=== PATIENT | male | born 1935 | race Caucasian/White ===

== ENCOUNTER → 2016-08-03 | Outpatient (REF) | payer MEDICARE ==
[~2016-08-03] MED LIST: /TIOT18INH; AMBI10TA PO; BABY81CH; CO ENZYME; CO Q200C PO; ECOT325T3 PO; FLOM5CAP PO; FOLI1TAB; FOLI800T PO; GLUCOSAMINE; INFL10VL IV; KLOR10TA; LIPI10TA PO; LIPITOR; LISI5TAB; LOPR50TA; LOSA25TA8 PO; MAGN64TASA PO; METH2.5T; METH2.5TA PO; NITR4TASL SL; NITROSTAT; PLAV75TA2; PREV15CA11 PO; PREVACID; SPIR1CAP IN
== END ==
LOC: M LAB REF 12:54
PROVIDERS: ATTEND Internal Medicine Rheumatology
DX: M05.679 Rheumatoid arthritis of unspecified ankle and foot with involvement of other organs and systems (principal); Z79.899 Other long term (current) drug therapy

== ENCOUNTER 2016-11-25 18:41 | Inpatient (IN) | payer MEDICARE ==
[~2016-11-25] VITALS: Ht 170.2 cm; Wt 96.7 kg
[~2016-11-25 18:41] MED LIST changes: -CO Q200C PO; +CO Q200C10 PO; -ECOT325T3 PO; +ECOT325T5 PO; -PREV15CA11 PO; +PREV15CA18 PO
[2016-11-25] MEDS ORDERED: [UNRECOGNIZED DRUG - OTHER] (19:04)
[2016-11-25] MEDS ORDERED: TIOT18INH INH (19:04)
[2016-11-25] MEDS ORDERED: LIPI10TA PO (19:04)
[2016-11-25] MEDS ORDERED: NS 500 ML IV ONE (20:00)
[2016-11-25] MEDS ORDERED: ACETAMINOPHEN 325 MG TAB PO ONE (20:00)
[2016-11-25 21:02] LABS: VENOUS BASE EXCESS -1.5 (-2.0-2.0); VENOUS O2 SATURATION 75.7 % (60.0-80.0); VENOUS PARTIAL PRESSURE CO2 38.1 mmHg (38.0-50.0); VENOUS PARTIAL PRESSURE O2 38.4 mmHg (30.0-50.0); VENOUS STANDARD HCO3 22.7 MEQ/L; VENOUS TOTAL CO2 24.1 MEQ/L (24.0-28.0)
[2016-11-25 21:04] LABS: ADD MANUAL DIFFER YES; MEAN CORPUSCULAR HEMOGLOBIN 31.5 pg (27.0-33.0); MEAN CORPUSCULAR HGB CONC 33.6 g/dl (32.0-36.5); MEAN CORPUSCULAR VOLUME 93.8 fl (80.0-96.0); PLATELET COUNT, AUTOMATED 134 k/mm3 (150-450); RED CELL DISTRIBUTION WIDTH 15.1 % (11.5-14.5); WHITE BLOOD COUNT 18.3 K/mm3 (4.0-10.0)
[2016-11-25 21:28] LABS: ALBUMIN 3.8 GM/DL (3.2-5.2); ALBUMIN/GLOBULIN RATIO 1.15 (1.00-1.93); BILIRUBIN,DIRECT 0.2 MG/DL (0.0-0.2); CREATININE FOR GFR 1.69 MG/DL (0.70-1.30); GLOMERULAR FILTRATION RATE 41.8 (>35); POTASSIUM SERUM 4.8 MEQ/L (3.5-5.1); TOTAL PROTEIN 7.1 GM/DL (6.4-8.2)
[2016-11-25 21:29] LABS: ANISOCYTOSIS 1+
[2016-11-25] MEDS ORDERED: AZITHROMYCIN INJ 500 MG, VIAL MATE ADAPTER 1 EACH in D5W 250 ML IV ONE (21:30)
[2016-11-25] MEDS ORDERED: CEFUROXIME SODIUM 1.5 GM in D5W MINI-BAG PLUS 50 ML IV ONE (21:30)
[2016-11-25] MEDS ORDERED: ERYT5OPO OS (22:07)
[2016-11-25] MEDS ORDERED: VITMTA PO (22:07)
[2016-11-25] MEDS ORDERED: FLUT1SPR2 (22:07)
[2016-11-25] MEDS ORDERED: ASPI325T24 PO (22:07)
[2016-11-25] MEDS ORDERED: NS 1,000 ML IV SCH (22:38)
[2016-11-25] MEDS ORDERED: FLUTICASONE PROP 0.05% NASAL SPRAY 16 GM (FLONASE) PRN (22:45)
[2016-11-25] MEDS ORDERED: zolPIDEM TARTRATE 10MG TAB PO PRN (22:45)
[2016-11-25] MEDS ORDERED: ACETAMINOPHEN TAB 650MG DOSE (2X325MG) PO PRN (22:45)
[2016-11-25] MEDS ORDERED: zolPIDEM TARTRATE 5 MG TAB PO PRN (22:55)
--- NOTE | 2016-11-25 23:10 | REPUSA ---
CT of the chest without contrast Clinical statement: fever. Technique: Multiple axial CT images were obtained with 5 mm cuts through the chest without administra tion of contrast. Comparison: 12/09/2014. Findings: There is no thoracic lymphadenopathy. The visualized portions of the thyroid gland is unrem arkable. There are no pericardial or pleural effusions. There is focal consolidation in the left lowe r lobe. Limited imaging of the upper abdomen does not demonstrate any acute abnormalities. There are no suspicious osseous lesions. Impression: Left lower lobe pneumonia.
[2016-11-26 00:45] VITALS: BP 141/67
--- NOTE | 2016-11-26 01:56 | HPE ---
DATE OF ADMISSION: 11/25/2016 PRIMARY CARE PROVIDER: Marcus Alberto MD. ATTENDING PHYSICIAN: Anali Boyd MD. CHIEF COMPLAINT: Fever and coughing. HISTORY OF PRESENT ILLNESS: The patient is an 81-year-old white male with several chronic medical conditions listed below came to the hospital for evaluation of fever and coughing and confusion. The history is provided by himself, as well as his , who is with him in the emergency room (ER) today. Per the patient, he has very severe osteoarthritis and planned for left knee replacement next month. For that he underwent cardiac stress test yesterday with Dr. Joseph, which was normal. Since today, he has fever at home, temperature up to 100.4 and also he is more confused with some coughing and the family decided to bring him to the ER for further evaluation. In the ER, his initial workup indicated leukocytosis, white blood cells (WBCs) up to 18.3. He underwent chest x-ray, as well as a CT of chest, which demonstrates possible left lower pneumonia. Medicine service called for admission. REVIEW OF SYSTEMS: Positive fever, but no chills. No headache. No blurry vision. No shortness of breath. Positive coughing with whitish phlegm, but no chest pain. No abdominal pain. No diarrhea. No tingling, numbness, weakness in arms and lower extremities. All other systems reviewed were negative. PAST MEDICAL HISTORY: 1. Coronary artery disease status post coronary artery bypass graft (CABG). 2. Hypertension. 3. Stage III chronic kidney disease (CKD). 4. Rheumatoid arthritis. 5. Urine incontinence. PAST SURGICAL HISTORY: 1. Appendectomy. 2. Cholecystectomy. 3. Cardiac bypass surgery. 4. Left inguinal hernia repair. 5. Knee surgery. ALLERGIES: No known drug allergies. SOCIAL HISTORY: Remote tobacco use, quit many years. No alcohol abuse. No illicit drug abuse. He is FULL CODE. FAMILY HISTORY: Reviewed and no family history of coronary artery disease or chronic obstructive pulmonary disease (COPD). MEDICATIONS: Reviewed. PHYSICAL EXAMINATION: VITAL SIGNS: Temperature 98.9, heart rate 100, respirations 16, blood pressure 130/72, and oxygen saturation 92% on room air. GENERAL: He is awake, alert, oriented times three. He is a little bit confused. HEENT: Atraumatic. Pupils are equal, round and reactive to light. No jaundice. Ears, nose, and throat are normal. Oral mucosa dry. LUNGS: Decreased breath sounds, no wheezing, no crackles. HEART: S1, S2 regular. No murmur. ABDOMEN: Soft. Bowel sounds positive. Nontender. LOWER EXTREMITIES: No edema in bilateral extremities. NEUROLOGICAL: Nonfocal. SKIN: No rash. PSYCHOLOGICAL: No acute psychosis. DIAGNOSTIC LABORATORY STUDIES: Including the following: CBC and differential: WBC 18.3, hemoglobin and hematocrit 15/45, platelets 134. Sodium 132, potassium 4.8, BUN 22, creatinine 1.69. Chest x-ray, as well as chest CT reviewed which demonstrate left lower lobe infiltrate. IMPRESSION: 1. Community-acquired left lower lobe pneumonia. 2. Hypertension. 3. Rheumatoid arthritis. 4. Coronary artery disease. 5. Chronic kidney disease (CKD) stage III. PLAN: Patient will be admitted to medical/surgical floor. He is inpatient. I will treat him with intravenous (IV) ceftriaxone and azithromycin to cover community-acquired pneumonia. Will gently hydrate him. Will resume all his home medications. Will follow closely. Dr. Boyd will followup tomorrow. LINDA
[2016-11-26 05:59] LABS: BASO % 0.1 % (0.0-1.0); EOS % 0.4 % (0.0-3.0); LARGE UNSTAINED CELL # 0.2 K/mm3 (0.0-0.4); LARGE UNSTAINED CELL % 1.3 % (0.0-4.0); LYMPH # 1.2 K/mm3 (1.5-4.5); LYMPH % 7.1 % (24.0-44.0); MEAN CORPUSCULAR HEMOGLOBIN 32.6 pg (27.0-33.0); MEAN CORPUSCULAR HGB CONC 34.8 g/dl (32.0-36.5); MEAN CORPUSCULAR VOLUME 93.6 fl (80.0-96.0); MONO # 0.7 K/mm3 (0.0-0.8); MONO % 4.7 % (0.0-5.0); NEUTROPHILS # 12.4 K/mm3 (1.8-7.7); NEUTROPHILS % 86.5 % (36.0-66.0); PLATELET COUNT, AUTOMATED 112 k/mm3 (150-450); WHITE BLOOD COUNT 14.3 K/mm3 (4.0-10.0)
[2016-11-26 06:00] VITALS: BP 122/65
[2016-11-26 06:15] LABS: CALCIUM LEVEL 8.7 MG/DL (8.8-10.2); CREATININE FOR GFR 1.76 MG/DL (0.70-1.30); GLOMERULAR FILTRATION RATE 39.9 (>35); POTASSIUM SERUM 4.4 MEQ/L (3.5-5.1)
[2016-11-26] MEDS: HEPARIN SOD (PORCINE) 5000 UNITS/ML VIAL SC SCH ×3 (06:24→21:59)
[2016-11-26] MEDS: TIOTROPIUM INHALER/CAPSULE (SPIRIVA) INH SCH (07:51)
--- NOTE | 2016-11-26 07:54 | REP ---
A PA and lateral chest: Comparisons 06/24/2014. There is an incomplete inspiratory effort with bibasilar atelectasis. The lung helms otherwise clear and unchanged. There are sternotomy wires. Cardiac size is enlarged. The beltran, mediastinum, and bony thorax are unremarkable. Impression: Incomplete inspiration, bibasilar atelectasis. Cardiomegaly. Signed by Evgeny Saxena MD 11/26/2016 07:45 A
[2016-11-26] MEDS: LOSARTAN 25 MG TAB PO SCH ×2 (09:32→21:59)
[2016-11-26] MEDS: AZITHROMYCIN 250 MG TAB PO SCH (09:32)
[2016-11-26] MEDS: SENOKOT S TAB PO SCH ×2 (09:32→21:58)
[2016-11-26] MEDS: cefTRIAXone SOD 1 GM in D5W MINI-BAG PLUS 50 ML IV SCH (09:32)
[2016-11-26] MEDS ORDERED: TAMSULOSIN 0.4 MG CAP PO SCH (12:00)
--- NOTE | 2016-11-26 12:06 | IPN ---
DATE: 11/26/2016 SUBJECTIVE: The patient tells me that he is feeling better. He is coughing less. He is not feeling short of breath. He denies chest pain, fevers, chills, lightheadedness, dizziness, nausea, or vomiting. OBJECTIVE: VITAL SIGNS: Temperature 98.7, maximum temperature (t-max) 99.6, pulse 74, respiratory rate 16, blood pressure 122/65, oxygen saturation 93% on room air. GENERAL: He is a morbidly obese, elderly, man lying in bed comfortably at a 20 degree angle. He does not appear to be in any acute distress. He does cough with a wet sounding cough throughout the examination. HEENT: Cranial nerves II through XII are grossly intact. Moist mucous membranes. No elevation in central venous pressure. Does have an enlarged neck. CARDIOVASCULAR EXAM: S1, S2 regular. RESPIRATORY EXAM: Quite clear with diminished breath sounds at the left base. ABDOMINAL EXAM: Grossly obese. Bowel sounds present. The abdomen is soft. EXTREMITIES: No clubbing, cyanosis, or edema. LABORATORY STUDIES: WBC 14.3, down from 18.3, hemoglobin 13.9, platelet count 112, down from 134. Chemistry panel: Sodium 141, up from 132, potassium 4.4, chloride 110, bicarbonate 25, BUN 21, creatinine 1.7, lactic acid 1.2. VBG is fairly unremarkable. UA is also fairly unremarkable. Blood cultures were drawn and pending. IMAGING: The patient did have a CT scan of the chest, which revealed left lower lobe pneumonia. ASSESSMENT AND PLAN: This is an 81-year-old man presenting with cough, confusion, low grade temperature with radiographic findings concerning for community acquired pneumonia. 1. Community acquired pneumonia. The patient is on azithromycin and ceftriaxone. He does appear to be improving. At the present time, he is awake, alert, and oriented times three, and to situation. Does not appear to be confused at all. He tells me that his cough is reducing. He is comfortable on room air. We will continue with the current therapy and follow cultures. His leukocytosis is trending down. I suspect that he may be able to be discharged within the next 24 to 48 hours, depending on his progress. 2. Osteoarthritis. The patient is scheduled for a knee replacement next month. 3. Coronary artery disease, status post coronary artery bypass graft (CABG). The patient is on aspirin and statin. He is not on a beta brook. We will defer to his outpatient provider. 4. Benign prostatic hypertrophy (BPH). He is on Flomax. 5. Hypertension. He is controlled with losartan. 6. Insomnia. The patient is on Ambien. 7. Allergic rhinitis. The patient is on Flonase. 8. Deep vein thrombosis (DVT) prophylaxis. The patient is on heparin. DISPOSITION: I suspect that the patient may be able to be discharged within the next 24 to 48 hours. We will continue to follow his progress closely. Physical therapy (PT) evaluation has been placed.
[2016-11-26 14:00] VITALS: BP 131/71
[2016-11-26] MEDS ORDERED: MAGNESIUM CHLORIDE 64 MG TABCR (SLO MAG) PO SCH (21:00)
[2016-11-26] MEDS ORDERED: ASPIRIN ENTERIC 325 MG TAB PO SCH (21:00)
[2016-11-26] MEDS ORDERED: MULTIVITAMINS/MINERALS THERAP 1 TAB PO SCH (21:00)
[2016-11-26] MEDS ORDERED: ATORVASTATIN 5MG PER 1/2 TABLET PO SCH (21:00)
[2016-11-26 21:59] VITALS: BP 110/68
[2016-11-26 22:00] VITALS: BP 110/68
[2016-11-27] MEDS: HEPARIN SOD (PORCINE) 5000 UNITS/ML VIAL SC SCH (05:26)
[2016-11-27 06:00] VITALS: BP 134/81
[2016-11-27] MEDS: TIOTROPIUM INHALER/CAPSULE (SPIRIVA) INH SCH (07:30)
[2016-11-27 08:24] LABS: MEAN CORPUSCULAR HGB CONC 35.2 g/dl (32.0-36.5); MEAN CORPUSCULAR VOLUME 93.8 fl (80.0-96.0); RED CELL DISTRIBUTION WIDTH 14.9 % (11.5-14.5)
[2016-11-27 08:42] LABS: CALCIUM LEVEL 8.5 MG/DL (8.8-10.2); CREATININE FOR GFR 1.82 MG/DL (0.70-1.30); GLOMERULAR FILTRATION RATE 38.4 (>35); POTASSIUM SERUM 4.1 MEQ/L (3.5-5.1)
[2016-11-27] MEDS: AZITHROMYCIN 250 MG TAB PO SCH (08:44)
[2016-11-27] MEDS: SENOKOT S TAB PO SCH (08:44)
[2016-11-27] MEDS: cefTRIAXone SOD 1 GM in D5W MINI-BAG PLUS 50 ML IV SCH (08:44)
[2016-11-27] MEDS: LOSARTAN 25 MG TAB PO SCH (08:44)
[2016-11-27] MEDS ORDERED: LEVO500T3 PO (11:06)
--- NOTE | 2016-11-28 14:29 | DSES ---
DATE OF ADMISSION: 11/25/2016 DATE OF DISCHARGE: 11/27/2016 DISCHARGE DIAGNOSIS: Community-acquired pneumonia. SECONDARY DIAGNOSES: 1. Osteoarthritis. 2. Coronary artery disease. 3. Benign prostatic hypertrophy (BPH). 4. Hypertension. 5. Insomnia. 6. Allergic rhinitis. HOSPITAL COURSE: The patient is an 81-year-old man who presents with cough, low-grade temperatures and confusion. He was admitted to the medical/surgical floor with concern of community-acquired pneumonia. He did have a CT scan of his chest in the emergency room, which revealed left lower lobe pneumonia. The patient was started on ceftriaxone and azithromycin, and over the next 48 hours, he had great improvement in his symptoms. He is afebrile. His leukocytosis has resolved. He has normal lactic acid. His chronic kidney disease remained stable. The patient was seen by physical therapy today and has been cleared for discharge home. His confusion and metabolic encephalopathy has completely resolved. SUBJECTIVE: Today the patient tells me that he feels great. His cough is resolving. He has no complaints and would like to go home. OBJECTIVE: VITAL SIGNS: Temperature 98.4, pulse 79, respiratory rate 20, blood pressure 134/81, oxygen saturation 95% on room air. GENERAL: He is a very pleasant and obese man sitting up in bed, accompanied by his . The patient does not appear to be in any acute distress. HEENT: Cranial nerves II through XII are grossly intact. He has moist mucous membranes. No elevation of central venous pressure (CVP). CARDIOVASCULAR: S1, S2 regular. RESPIRATORY: Clear. Diminished breath sounds at the left base. ABDOMEN: Grossly obese. Bowel sounds present. The abdomen is soft. EXTREMITIES: No clubbing, cyanosis or edema. LABORATORY DATA: WBC 7.0 down from 18.3 at the time of admission, hemoglobin 14.1, platelet count 132. Chemistry panel: Sodium 139, potassium 4.1, chloride 107, bicarbonate 23, BUN 21, creatinine 1.8. MICROBIOLOGY: Blood cultures are negative. IMAGING: As outlined above. ASSESSMENT AND PLAN: This is an 81-year-old man with resolving community-acquired pneumonia. 1. Community-acquired pneumonia. The patient presented with metabolic encephalopathy secondary to community-acquired pneumonia. He was on azithromycin and ceftriaxone. At this time, he will be discharged on Levaquin 500 mg by mouth daily to complete a seven-day course. He is no longer confused. His leukocytosis resolved. He is afebrile. He is cleared by physical therapy (PT). He is medically stable for discharge home to the care of his . 2. Osteoarthritis. The patient has been scheduled for a knee replacement next month. This should not impede any planned operative procedure. 3. Coronary artery disease, status post coronary artery bypass graft (CABG). He is on an aspirin and statin. He is not on a beta brook. I will defer to his outpatient provider. 4. Benign prostatic hypertrophy (BPH). He is on Flomax. 5. Hypertension. He is on losartan. His blood pressure is well controlled. 6. Insomnia. He is on Ambien. 7. Allergic rhinitis. He is on Flonase. 8. Deep venous thrombosis (DVT) prophylaxis. The patient has been on heparin while in hospital. DISPOSITION: The patient is being discharged home to the care of his . He is to followup with his primary care provider (PCP) within seven days. His activity and diet are as prior to admission. He is to return to the ER if symptoms worsen. DISCHARGE MEDICATIONS: - levofloxacin 500 mg by mouth daily for five days - aspirin 325 mg at bedtime - Lipitor 5 mg at bedtime - coenzyme Q 200 mg daily - erythromycin ointment left eye daily at bedtime - fluticasone nasal spray two sprays for nasal congestion - folic acid 800 mcg daily - Remicade intravenously every eight weeks for rheumatoid arthritis - lansoprazole 50 mg daily - losartan 25 mg twice a day - magnesium chloride 64 mg - methotrexate 20 mg once a week on Wednesdays for rheumatoid arthritis - multivitamin one tablet at bedtime - Nitrostat 0.4 mg sublingually every five minutes times three doses as needed for chest pain - Flomax 0.4 mg daily - Spiriva inhaled once daily - Ambien 5 mg at bedtime as needed for sleep Greater than 30 minutes were spent organizing disposition. MTDD
== END 2016-11-27 11:56 | disposition home or self-care (01) | DRG 193 ==
LOC: M ED 18:41 → M ED INP 22:38 → M MSPAV 11-26 00:44
PROVIDERS: ADMIT Hospitalist; ATTEND Internal Medicine
DX: J18.9 Pneumonia, unspecified organism (principal); G93.41 Metabolic encephalopathy; I12.9 Hypertensive chronic kidney disease with stage 1 through stage 4 chronic kidney disease, or unspecified chronic kidney disease; M06.9 Rheumatoid arthritis, unspecified; N18.3 Chronic kidney disease, stage 3 (moderate); I25.10 Atherosclerotic heart disease of native coronary artery without angina pectoris; N40.0 Benign prostatic hyperplasia without lower urinary tract symptoms; G47.00 Insomnia, unspecified; M19.90 Unspecified osteoarthritis, unspecified site; Z79.82 Long term (current) use of aspirin; Z79.899 Other long term (current) drug therapy

== ENCOUNTER → 2016-12-25 | Outpatient (REF) | payer MEDICARE ==
[~2016-12-25] MED LIST changes: +ASPI325T24 PO; +ERYT5OPO OS; +FLUT1SPR2; +LEVO500T3 PO; +TIOT18INH INH; +VITMTA PO; +[UNRECOGNIZED DRUG - OTHER]
== END ==
LOC: M LAB 21:45
PROVIDERS: ATTEND Family Medicine
DX: M05.762 Rheumatoid arthritis with rheumatoid factor of left knee without organ or systems involvement (principal); M25.562 Pain in left knee; G89.29 Other chronic pain

== ENCOUNTER → 2016-12-26 | Outpatient (REF) | payer MEDICARE ==
[2016-12-26 12:21] LABS: BASO % 0.5 % (0.0-1.0); EOS # 0.4 K/mm3 (0.0-0.50); LARGE UNSTAINED CELL # 0.3 K/mm3 (0.0-0.4); LARGE UNSTAINED CELL % 3.2 % (0.0-4.0); LYMPH # 2.1 K/mm3 (1.5-4.5); LYMPH % 18.1 % (24.0-44.0); MEAN CORPUSCULAR HEMOGLOBIN 31.1 pg (27.0-33.0); MEAN CORPUSCULAR HGB CONC 33.1 g/dl (32.0-36.5); MEAN CORPUSCULAR VOLUME 93.8 fl (80.0-96.0); MONO # 0.9 K/mm3 (0.0-0.8); MONO % 8.8 % (0.0-5.0); NEUTROPHILS # 6.5 K/mm3 (1.8-7.7); NEUTROPHILS % 65.4 % (36.0-66.0); PLATELET COUNT, AUTOMATED 136 k/mm3 (150-450); RED CELL DISTRIBUTION WIDTH 13.9 % (11.5-14.5)
== END ==
PROVIDERS: ATTEND Family Medicine
DX: R53.83 Other fatigue (principal)

== ENCOUNTER → 2017-02-22 | Outpatient (REF) | payer MEDICARE ==
[2017-02-22 12:56] LABS: ALBUMIN 3.6 GM/DL (3.2-5.2); ALBUMIN/GLOBULIN RATIO 0.92 (1.00-1.93); BILIRUBIN,TOTAL 0.5 MG/DL (0.2-1.0); CALCIUM LEVEL 9.3 MG/DL (8.8-10.2); CREATININE FOR GFR 1.75 MG/DL (0.70-1.30); GLOMERULAR FILTRATION RATE 40.1 (>35); MAGNESIUM LEVEL 2.2 MG/DL (1.8-2.4); POTASSIUM SERUM 4.9 MEQ/L (3.5-5.1); TOTAL PROTEIN 7.5 GM/DL (6.4-8.2)
== END ==
LOC: M SFHCPLAZ 08:33
PROVIDERS: ATTEND Internal Medicine
DX: I10 Essential (primary) hypertension (principal); E78.00 Pure hypercholesterolemia, unspecified

== ENCOUNTER 2017-04-29 23:38 | Emergency (ER) | payer MEDICARE ==
[2017-04-30 00:45] LABS: BASO % 0.2 % (0.0-1.0); EOS # 0.2 10^3/uL (0.0-0.50); EOS % 2.3 % (0.0-3.0); IMMATURE GRANULOCYTE % 0.3 % (0-0); LYMPH % 10.4 % (24.0-44.0); MEAN CORPUSCULAR HEMOGLOBIN 30.6 pg (27.0-33.0); MEAN CORPUSCULAR HGB CONC 34.6 g/dl (32.0-36.5); MEAN CORPUSCULAR VOLUME 88.4 fl (80.0-96.0); MONO # 0.6 10^3/uL (0.0-0.8); NEUTROPHILS # 7.6 10^3/uL (1.8-7.7); NEUTROPHILS % 80.8 % (36.0-66.0); PLATELET COUNT, AUTOMATED 151 10^3/uL (150-450); RED CELL DISTRIBUTION WIDTH 18.7 % (11.5-14.5); WHITE BLOOD COUNT 9.4 10^3/uL (4.0-10.0)
[2017-04-30 01:05] LABS: ANION GAP 8 MEQ/L (8-16); BLOOD UREA NITROGEN 22 MG/DL (7-18); CALCIUM LEVEL 8.6 MG/DL (8.8-10.2); CARBON DIOXIDE LEVEL 23 MEQ/L (21-32); CHLORIDE LEVEL 109 MEQ/L (98-107); CREATININE FOR GFR 1.86 MG/DL (0.70-1.30); GLOMERULAR FILTRATION RATE 37.3 (>35); GLUCOSE, FASTING 131 MG/DL (83-110); POTASSIUM SERUM 4.2 MEQ/L (3.5-5.1); SODIUM LEVEL 140 MEQ/L (136-145)
[2017-04-30 01:08] LABS: ALBUMIN 3.6 GM/DL (3.2-5.2); ALBUMIN/GLOBULIN RATIO 1.03 (1.00-1.93); ALKALINE PHOSPHATASE 79 U/L (45-117); ALT/SGPT 40 U/L (12-78); AST/SGOT 30 U/L (7-37); BILIRUBIN,DIRECT 0.2 MG/DL (0.0-0.2); BILIRUBIN,TOTAL 0.6 MG/DL (0.2-1.0); TOTAL PROTEIN 7.1 GM/DL (6.4-8.2)
[2017-04-30] MEDS: PIPERACILLIN/TAZOBACTAM SOD 3.375 GM in APPROPRIATE DILUENT 1 EA IV (01:30)
== END 2017-04-30 03:25 | disposition home or self-care (01) ==
LOC: M ED 23:38
DX: L03.113 Cellulitis of right upper limb (principal); S61.451A Open bite of right hand, initial encounter; W55.01XA Bitten by cat, initial encounter; Y92.098 Other place in other non-institutional residence as the place of occurrence of the external cause; Y93.89 Activity, other specified; Y99.8 Other external cause status; I25.2 Old myocardial infarction; I12.9 Hypertensive chronic kidney disease with stage 1 through stage 4 chronic kidney disease, or unspecified chronic kidney disease; J44.9 Chronic obstructive pulmonary disease, unspecified; E78.5 Hyperlipidemia, unspecified; K21.9 Gastro-esophageal reflux disease without esophagitis; M54.9 Dorsalgia, unspecified; N40.0 Benign prostatic hyperplasia without lower urinary tract symptoms; N18.9 Chronic kidney disease, unspecified; Z87.891 Personal history of nicotine dependence; Z79.82 Long term (current) use of aspirin; Z79.899 Other long term (current) drug therapy
CPT/HCPCS: J2543

== ENCOUNTER 2017-05-01 22:45 | Emergency (ER) | payer MEDICARE ==
[2017-05-02 01:59] LABS: BASO % 0.2 % (0.0-1.0); EOS # 0.3 10^3/uL (0.0-0.50); EOS % 4.6 % (0.0-3.0); HEMATOCRIT 39.7 % (42.0-52.0); HEMOGLOBIN 13.3 g/dl (14.0-18.0); IMMATURE GRANULOCYTE % 0.6 % (0-0); LYMPH # 1.3 10^3/uL (1.5-4.5); LYMPH % 23.7 % (24.0-44.0); MEAN CORPUSCULAR HEMOGLOBIN 30.1 pg (27.0-33.0); MEAN CORPUSCULAR HGB CONC 33.5 g/dl (32.0-36.5); MEAN CORPUSCULAR VOLUME 89.8 fl (80.0-96.0); MONO # 0.5 10^3/uL (0.0-0.8); MONO % 8.9 % (0.0-5.0); NEUTROPHILS # 3.4 10^3/uL (1.8-7.7); PLATELET COUNT, AUTOMATED 172 10^3/uL (150-450); RED BLOOD COUNT 4.42 10^6/uL (4.30-6.10); RED CELL DISTRIBUTION WIDTH 18.1 % (11.5-14.5); WHITE BLOOD COUNT 5.4 10^3/uL (4.0-10.0)
[2017-05-02] MEDS: PIPERACILLIN/TAZOBACTAM SOD 2.25 GM in APPROPRIATE DILUENT 1 EA IV (02:10)
[2017-05-02 02:18] LABS: ANION GAP 6 MEQ/L (8-16); BLOOD UREA NITROGEN 30 MG/DL (7-18); CALCIUM LEVEL 8.8 MG/DL (8.8-10.2); CARBON DIOXIDE LEVEL 26 MEQ/L (21-32); CHLORIDE LEVEL 108 MEQ/L (98-107); CREATININE FOR GFR 1.84 MG/DL (0.70-1.30); GLOMERULAR FILTRATION RATE 37.8 (>35); GLUCOSE, FASTING 103 MG/DL (83-110); POTASSIUM SERUM 4.2 MEQ/L (3.5-5.1); SODIUM LEVEL 140 MEQ/L (136-145)
[2017-05-02 02:21] LABS: LACTIC ACID SEPSIS PROTOCOL 0.8 MMOL/L (0.4-2.0)
== END 2017-05-02 02:46 | disposition home or self-care (01) ==
LOC: M ED 22:45
DX: L03.113 Cellulitis of right upper limb (principal); S61.451A Open bite of right hand, initial encounter; W55.01XA Bitten by cat, initial encounter; Y92.098 Other place in other non-institutional residence as the place of occurrence of the external cause; Y93.89 Activity, other specified; Y99.8 Other external cause status; I25.2 Old myocardial infarction; J44.9 Chronic obstructive pulmonary disease, unspecified; E78.5 Hyperlipidemia, unspecified; M54.9 Dorsalgia, unspecified; K74.60 Unspecified cirrhosis of liver; N40.0 Benign prostatic hyperplasia without lower urinary tract symptoms; N18.9 Chronic kidney disease, unspecified; Z87.891 Personal history of nicotine dependence; Z79.82 Long term (current) use of aspirin; Z79.899 Other long term (current) drug therapy
CPT/HCPCS: J2543

== ENCOUNTER → 2017-08-15 | Outpatient (REF) | payer MEDICARE ==
[2017-08-15 12:03] LABS: ALBUMIN 3.7 GM/DL (3.2-5.2); ALBUMIN/GLOBULIN RATIO 1.12 (1.00-1.93); ALKALINE PHOSPHATASE 69 U/L (45-117); ALT/SGPT 41 U/L (12-78); ANION GAP 7 MEQ/L (8-16); AST/SGOT 17 U/L (7-37); BILIRUBIN,TOTAL 0.7 MG/DL (0.2-1.0); BLOOD UREA NITROGEN 31 MG/DL (7-18); CALCIUM LEVEL 8.6 MG/DL (8.8-10.2); CARBON DIOXIDE LEVEL 23 MEQ/L (21-32); CHLORIDE LEVEL 113 MEQ/L (98-107); CREATININE FOR GFR 1.81 MG/DL (0.70-1.30); GLOMERULAR FILTRATION RATE 38.5 (>35); GLUCOSE, FASTING 89 MG/DL (70-100); POTASSIUM SERUM 4.2 MEQ/L (3.5-5.1); SODIUM LEVEL 143 MEQ/L (136-145)
== END ==
LOC: M SFHCPLAZ 09:00
DX: I10 Essential (primary) hypertension (principal)
CPT/HCPCS: 83735

== ENCOUNTER 2017-10-24 06:59 | Day surgery (SDC) | payer MEDICARE ==
[2017-10-24] MEDS ORDERED: PROPOFOL 200 MG/20 ML VIAL As Ordered ×2 (07:18)
[2017-10-24] MEDS: NS 1,000 ML IV (07:30)
== END 2017-10-24 09:00 | disposition home or self-care (01) ==
LOC: M OPP 06:59
DX: Z12.11 Encounter for screening for malignant neoplasm of colon (principal); K64.0 First degree hemorrhoids; Z86.010 Personal history of colon polyps; J44.9 Chronic obstructive pulmonary disease, unspecified; K44.9 Diaphragmatic hernia without obstruction or gangrene; N40.0 Benign prostatic hyperplasia without lower urinary tract symptoms; I10 Essential (primary) hypertension; E78.00 Pure hypercholesterolemia, unspecified; R01.1 Cardiac murmur, unspecified; I25.2 Old myocardial infarction; M06.9 Rheumatoid arthritis, unspecified; Z79.899 Other long term (current) drug therapy; Z95.5 Presence of coronary angioplasty implant and graft
CPT/HCPCS: G0105

== ENCOUNTER → 2018-02-17 | Outpatient (REF) | payer MEDICARE ==
[2018-02-17 12:21] LABS: ALBUMIN 3.6 GM/DL (3.2-5.2); ALBUMIN/GLOBULIN RATIO 1.24 (1.00-1.93); ALKALINE PHOSPHATASE 71 U/L (45-117); ALT/SGPT 51 U/L (12-78); ANION GAP 11 MEQ/L (8-16); AST/SGOT 27 U/L (7-37); BILIRUBIN,TOTAL 0.5 MG/DL (0.2-1.0); BLOOD UREA NITROGEN 30 MG/DL (7-18); CALCIUM LEVEL 8.5 MG/DL (8.8-10.2); CARBON DIOXIDE LEVEL 24 MEQ/L (21-32); CHLORIDE LEVEL 108 MEQ/L (98-107); CHOLESTEROL LEVEL 92 MG/DL (<200); CHOLESTEROL RISK RATIO 2.787 (<5); CREATININE FOR GFR 1.73 MG/DL (0.70-1.30); GLOMERULAR FILTRATION RATE 40.6 (>35); GLUCOSE, FASTING 84 MG/DL (70-100); HDL CHOLESTEROL 33 MG/DL (>40); LDL CHOLESTEROL 42 MG/DL (<100); MAGNESIUM LEVEL 1.9 MG/DL (1.8-2.4); NON-HDL-C 59 MG/DL; POTASSIUM SERUM 4.4 MEQ/L (3.5-5.1); SODIUM LEVEL 143 MEQ/L (136-145); TOTAL PROTEIN 6.5 GM/DL (6.4-8.2); TRIGLYCERIDES LEVEL 86 MG/DL (<150)
== END ==
LOC: M SFHCPLAZ 08:12
DX: E78.00 Pure hypercholesterolemia, unspecified (principal)
CPT/HCPCS: 83735

== ENCOUNTER → 2018-04-19 | Outpatient (REF) | payer MEDICARE ==
[~2018-04-19] MED LIST changes: +ALFU10TA2; -ASPI325T24 PO; +ASPI325T25 PO; +AUGM875T28 PO; +DOXY100C37 PO; +FLOM0.4C39 PO; -FLOM5CAP PO; +FLUT1INH2 INH; +LOSA25TA33 PO; -LOSA25TA8 PO; +METH2.5T48 PO; -METH2.5TA PO
== END ==
LOC: M LAB REF 10:11
PROVIDERS: ATTEND Internal Medicine Rheumatology
DX: Z79.899 Other long term (current) drug therapy (principal); M05.79 Rheumatoid arthritis with rheumatoid factor of multiple sites without organ or systems involvement

== ENCOUNTER → 2018-08-29 | Outpatient (REF) | payer MEDICARE ==
[~2018-08-29] MED LIST changes: -/TIOT18INH; +ASPI-255 PO; -ASPI325T25 PO; +ERYT1OIN26 OS; -ERYT5OPO OS; +LOSA25TA14 PO; -LOSA25TA33 PO; +SPIR1CAP
[2018-08-29 11:43] LABS: ALBUMIN 3.6 GM/DL (3.2-5.2); BILIRUBIN,TOTAL 0.4 MG/DL (0.2-1.0); CALCIUM LEVEL 8.7 MG/DL (8.8-10.2); CREATININE FOR GFR 1.73 MG/DL (0.70-1.30); GLOMERULAR FILTRATION RATE 40.5 (>35); POTASSIUM SERUM 4.9 MEQ/L (3.5-5.1); TOTAL PROTEIN 6.9 GM/DL (6.4-8.2)
[2018-08-29 11:50] LABS: PTH INTACT 68.3 PG/ML (18.5-88.0)
== END ==
LOC: M SFHCPLAZ 07:50
PROVIDERS: ATTEND Internal Medicine
DX: I12.9 Hypertensive chronic kidney disease with stage 1 through stage 4 chronic kidney disease, or unspecified chronic kidney disease (principal); N18.3 Chronic kidney disease, stage 3 (moderate)

== ENCOUNTER → 2018-09-08 | Outpatient (CLI) | payer MEDICARE ==
--- NOTE | 2018-09-08 14:39 | REP ---
REASON: History of pneumonia. COMPARISON: Multiple, latest 03/01/2017. 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 Previous median sternotomy again noted. The heart is not enlarged. There are no new abnormal lung parenchymal opacities. There is no change in the osseous structures. IMPRESSION: No evidence of acute cardiopulmonary disease. Stable appearing chronic changes as described above. Electronically Signed by Carlos Brown DO 09/08/2018 02:43 P
== END ==
LOC: M RAD 11:26
PROVIDERS: ATTEND Internal Medicine
DX: Z87.01 Personal history of pneumonia (recurrent) (principal)

== ENCOUNTER → 2018-11-07 | Outpatient (REF) | payer MEDICARE | LOC: M LAB REF 10:47 | PROVIDERS: ATTEND Internal Medicine Rheumatology | DX: Z51.81 Encounter for therapeutic drug level monitoring (principal); Z79.899 Other long term (current) drug therapy; M05.79 Rheumatoid arthritis with rheumatoid factor of multiple sites without organ or systems involvement ==

== ENCOUNTER 2018-12-25 17:06 | Emergency (ER) | payer MEDICARE ==
[~2018-12-25] VITALS: Ht 170.2 cm; Wt 94.1 kg
[2018-12-25] MEDS ORDERED: OMEP20CA4 PO (17:30)
[2018-12-25] MEDS ORDERED: NS 1,000 ML IV ONE (18:00)
[2018-12-25] MEDS ORDERED: ACETAMINOPHEN TAB 650MG DOSE (2X325MG) PO ONE (18:00)
[2018-12-25 18:57] LABS: BASO % 0.3 % (0.0-1.0); EOS # 0.1 10^3/uL (0.0-0.50); EOS % 1.2 % (0.0-3.0); HEMATOCRIT 42.1 % (42.0-52.0); HEMOGLOBIN 14.2 g/dl (13.5-17.5); LYMPH # 0.6 10^3/uL (1.5-4.5); LYMPH % 4.8 % (24.0-44.0); MEAN CORPUSCULAR HEMOGLOBIN 33.1 pg (27.0-33.0); MEAN CORPUSCULAR HGB CONC 33.7 g/dl (32.0-36.5); MEAN CORPUSCULAR VOLUME 98.1 fl (80.0-96.0); MONO # 0.6 10^3/uL (0.0-0.8); NEUTROPHILS # 10.5 10^3/uL (1.8-7.7); NEUTROPHILS % 88.4 % (36.0-66.0); PLATELET COUNT, AUTOMATED 125 10^3/uL (150-450); RED BLOOD COUNT 4.29 10^6/uL (4.30-6.10); WHITE BLOOD COUNT 11.9 10^3/uL (4.0-10.0)
[2018-12-25 19:18] LABS: ALBUMIN 3.9 GM/DL (3.2-5.2); BILIRUBIN,DIRECT 0.2 MG/DL (0.0-0.2); BILIRUBIN,TOTAL 0.6 MG/DL (0.2-1.0); CALCIUM LEVEL 9.1 MG/DL (8.8-10.2); CREATININE FOR GFR 1.76 MG/DL (0.70-1.30); GLOMERULAR FILTRATION RATE 39.7 (>35); POTASSIUM SERUM 4.5 MEQ/L (3.5-5.1); TOTAL PROTEIN 7.1 GM/DL (6.4-8.2)
[2018-12-25 20:56] VITALS: BP 154/73
--- NOTE | 2018-12-26 07:09 | REP ---
CHEST, TWO VIEWS: Two views of the chest are performed and compared to prior study of 09/08/2018. There is chronic bibasilar fibrotic change which is stable. There is no acute infiltrate or pulmonary edema. The heart is not significantly enlarged. Mediastinal silhouette is unchanged. Multiple sternal wires and mediastinal clips are present. IMPRESSION: Stable chronic findings without acute infiltrate. Electronically Signed by Evgeny Barry MD 12/26/2018 11:53 P
== END 2018-12-25 21:09 | disposition home or self-care (01) ==
LOC: M ED 17:06
DX: B34.9 Viral infection, unspecified (principal); R50.9 Fever, unspecified; I51.9 Heart disease, unspecified; I10 Essential (primary) hypertension; Z95.1 Presence of aortocoronary bypass graft; Z72.0 Tobacco use; Z79.82 Long term (current) use of aspirin; Z79.899 Other long term (current) drug therapy

== ENCOUNTER 2019-01-01 21:48 | Inpatient (IN) | payer MEDICARE ==
[~2019-01-01] VITALS: Ht 170.2 cm; Wt 94.0 kg
[~2019-01-01 21:48] MED LIST changes: +OMEP20CA4 PO
[2019-01-01] MEDS ORDERED: ACETAMINOPHEN TAB 650MG DOSE (2X325MG) PO ONE (22:15)
[2019-01-01 22:27] LABS: BASO % 0.4 % (0.0-1.0); EOS # 0.3 10^3/uL (0.0-0.5); EOS % 3.5 % (0.0-3.0); HEMOGLOBIN 13.8 g/dl (13.5-17.5); LYMPH # 1.1 10^3/uL (1.5-5.0); LYMPH % 11.5 % (24.0-44.0); MEAN CORPUSCULAR HEMOGLOBIN 33.3 pg (27.0-33.0); MEAN CORPUSCULAR HGB CONC 34.5 g/dl (32.0-36.5); MEAN CORPUSCULAR VOLUME 96.4 fl (80.0-96.0); MONO # 1.1 10^3/uL (0.0-0.8); NEUTROPHILS # 6.7 10^3/uL (1.5-8.5); PLATELET COUNT, AUTOMATED 144 10^3/uL (150-450); RED BLOOD COUNT 4.15 10^6/uL (4.30-6.10); WHITE BLOOD COUNT 9.3 10^3/uL (4.0-10.0)
[2019-01-01] MEDS ORDERED: NS 500 ML IV ONE (22:45)
[2019-01-01] MEDS ORDERED: PIPERACILLIN/TAZOBACTAM SOD 3.375 GM in D5W MINI-BAG PLUS 50 ML IV ONE (22:45)
[2019-01-01 22:48] LABS: ALBUMIN 3.3 GM/DL (3.2-5.2); ALT/SGPT 23 U/L (12-78); BILIRUBIN,TOTAL 0.5 MG/DL (0.2-1.0); BLOOD UREA NITROGEN 25 MG/DL (7-18); CALCIUM LEVEL 8.3 MG/DL (8.8-10.2); CARBON DIOXIDE LEVEL 22 MEQ/L (21-32); CHLORIDE LEVEL 108 MEQ/L (98-107); CK-MB VALUE MASS < 1.0 NG/ML (<3.6); CPK CREATINE PHOSPHOKINASE 28 U/L (39-308); CREATININE FOR GFR 2.23 MG/DL (0.70-1.30); GLOMERULAR FILTRATION RATE 30.2 (>35); GLUCOSE, FASTING 132 MG/DL (70-100); MB/CK RELATIVE INDEX 3.57 (< OR =4); POTASSIUM SERUM 4.1 MEQ/L (3.5-5.1); SODIUM LEVEL 138 MEQ/L (136-145); TOTAL PROTEIN 6.5 GM/DL (6.4-8.2); TROPONIN I < 0.02 NG/ML (< 0.10)
[2019-01-01] MEDS ORDERED: AMOX500C PO (23:54)
[2019-01-01] MEDS ORDERED: FOLI1TAB11 PO (23:54)
[2019-01-01] MEDS ORDERED: LOSA50TA88 PO (23:54)
[2019-01-01] MEDS ORDERED: PRED5TA PO (23:54)
[2019-01-02] MEDS ORDERED: SODIUM CHLORIDE HYPERTONIC 3% 15ML NEB SOL INH ONE
[2019-01-02] MEDS ORDERED: ACETAMINOPHEN TAB 650MG DOSE (2X325MG) PO PRN (00:45)
[2019-01-02] MEDS ORDERED: IPRATROPIUM 0.5MG/ALBUTEROL 2.5MG INH SOL UD 3ML (DUONEB)(J7620) NEB ONE (00:45)
[2019-01-02] MEDS ORDERED: MOM 30ML SUSPENSION UDC PO PRN (00:45)
[2019-01-02] MEDS ORDERED: MAALOX 30 ML SUSP *UDC PO PRN (00:45)
[2019-01-02] MEDS ORDERED: IPRATROPIUM 0.5MG/ALBUTEROL 2.5MG INH SOL UD 3ML (DUONEB)(J7620) NEB PRN (01:00)
[2019-01-02] MEDS ORDERED: predniSONE 2.5 MG TAB PO PRN (01:00)
[2019-01-02] MEDS ORDERED: NITROGLYCERIN 0.4 MG SUBL TABLET SL PRN (01:00)
[2019-01-02] MEDS ORDERED: TEMAZEPAM 7.5 MG CAP PO PRN (01:00)
--- NOTE | 2019-01-02 01:03 | ECGEPIP ---
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
[2019-01-02] MEDS ORDERED: PILL CUTTER 1 EACH XX PRN (01:15)
[2019-01-02 03:20] VITALS: BP 109/67
[2019-01-02 03:30] VITALS: O2SAT 94; O2SAT 99
--- NOTE | 2019-01-02 05:35 | HPEPDOC ---
General Date of Admission Jan 01, 2019 at 23:50 Date of Service: Jan 01, 2019 Primary Care Physician: Marcus Alberto Attending Physician: MUKESH WAYNE MD Chief Complaint The patient is a 83-year-old male admitted with a reason for visit of left lower lobe pneumonia, acute kidney injury Source: Patient, Family, RN/MD, RN notes reviewed Exam Limitations: Hard of hearing, Mild cognitive slowing Timing/Duration: 4-6 hours Severity: Moderate Associated Symptoms: Cough, Fever, Chills, Malaise, Shortness of breath, Weakness History of Present Illness 83-year-old male presented to the ED at [facility] with his with complaints of fever, body aches and chills with shortness of breath that started earlier this evening. He has a significant medical history of chronic kidney disease stage III, GERD, BPH, emphysema, COPD, myocardial infarction 4 with last 2007, coronary artery disease, CABG with stent placements 2, hyperlipidemia, history of leaky valve, essential hypertension. He received Zosyn in the ED via peripheral IV. Patient will be worked up for sepsis screening due to his fever of 101 on arrival. He is sinus tachycardia, heart r ate 110 on EKG and 105- 108 on telemetry monitoring. Patient will be admitted to Med-Surg unit inpatient with remote telemetry and continuous pulse oximetry under hospitalist services. Blood cultures and sputum cultures pending. Home Medications Scheduled Amoxicillin (Amoxicillin) 500 Mg Capsule, 500 MG PO BID, (Reported) PATIENT HAS HAD 3 DOSES OF 20: STARTING 12/31/18 Aspirin (Aspirin EC) 325 Mg Tabec, 325 MG PO QHS, (Reported) Atorvastatin Calcium (Lipitor) 10 Mg Tab, 5 MG PO QHS, (Reported) Folic Acid (Folic Acid) 1 Mg Tablet, 1 MG PO DAILY, (Reported) Infliximab Injection (Remicade) 100 Mg/10 Ml Vial, 1 DOSE IV ASDIRECTED, (Reported) EVERY 7 WEEKS: DOSE HAS BEEN 900MG; LAST DOSE IN OCTOBER Losartan Potassium (Losartan Potassium) 50 Mg Tablet, 50 MG PO DAILY, (Reported) Magnesium Chloride (Mag64) 64 Mg Tabcr, 64 MG PO QHS, (Reported) Methotrexate Sodium (Methotrexate) 2.5 Mg Tab, 20 MG PO 1XWK, (Reported) EVERY TUESDAY AT QHS Multivitamins (Thera M Plus Tablet) 1 Tab Tab, 1 TAB PO QHS, (Reported) Omeprazole (Omeprazole) 20 Mg Capsule.dr, 20 MG PO DAILY, (Reported) Ubidecarenone (Co Q-10) 200 Mg Cap, 200 MG PO DAILY, (Reported) Scheduled PRN Nitroglycerin (Nitrostat) 0.4 Mg Subl, 0.4 MG SL NITRO PRN for CHEST PAIN, (Reported) Prednisone (Prednisone) 5 Mg Tablet, 2.5 MG PO DAILY PRN for PAIN PREVENTION, (Reported) Zolpidem Tartrate (Ambien) 10 Mg Tab, 5 MG PO QHS PRN for SLEEP, (Reported) Allergies Coded Allergies: No Known Allergies (Verified , 01/01/19) Family History Significant Family History: Noncontributory Social History * Smoker: former Smoker, quit greater than 1 year, cigarettes Alcohol: occationally Drugs: denies Recent Travel/Sick Contacts: Denies: Recent travel, Recent sick contacts Psychosocial History: No pertinent psych hx A-FIB/CHADSVASC A-FIB History Current/History of A-Fib/PAF?: No Review of Systems Constitutional: Reports: Chills, Fever, Malaise, Weakness Eyes: Denies: Pain, Vision change, Conjunctivae inflammation, Eyelid inflammation, Redness, Other ENT: Reports: Other Symptoms (hard of hearing) Skin: Denies: Rash, Lesions, Jaundice, Bruising, Itching, Dry, Breakdown, Nail Changes, Other Pulmonary: Reports: Dyspnea, Cough Cardiovascular: Reports: Orthopnea Gastrointestinal: Reports: Abdominal Pain Genitourinary: Reports: Frequency, Incontinence Hematologic: Denies: Bruising, Bleeding Excessively, Petecchia, Purpura, Enlarged Lymph Nodes, Other Hematologic Endocrine: Denies: Polydipsia, Polyphagia, Polyuria, Heat Intolerance, Cold Intolerance, Other Endocrine Sx Musculoskeletal: Reports: Back Pain Neurological: Reports: Weakness, Confusion Psych: Reports: Anxiety Physical Examination General Exam: Positive: Alert, Cooperative, No Acute Distress Eye Exam: Positive: PERRLA, Conjunctiva & lids normal, Sclera icteric ENT Exam: Positive: Atraumatic, Mucous membr. moist/pink, Pharynx Normal, Tongue Midline, Nares Patent, Ext Auditory Canal Nml Neck Exam: Positive: Supple Chest Exam: Positive: Diminished (Bilateral apical lobes, Right middle lobe, and bilateral base lobes to auscultation), Other (non-productive cough) Heart Exam: Positive: Tachycardic, Normal S1, Normal S2 Telemetry: Positive: Sinus, Tachycardia Abdomen Exam: Positive: Normal bowel sounds, Soft Extremity Exam: Positive: Normal pulses Skin Exam: Positive: Nl turgor and temperature Neuro Exam: Positive: Normal Speech Psych Exam: Positive: Mood NL, Other (Oriented x2 person, place, long-term memory deficit, problems with recalling events) Vital Signs Vital Signs Date Time Temp Pulse Resp B/P (MAP) Pulse Ox O2 Delivery O2 Flow Rate FiO2 01/02/19 01:16 Nasal Cannula 2.0 01/02/19 01:14 97 22 91/53 (66) 95 01/02/19 00:00 99.1 Laboratory Data Labs 24H Laboratory Tests 2 01/01/19 22:13: Immature Granulocyte % (Auto) 0.6, White Blood Count 9.3, Red Blood Count 4.15L, Hemoglobin 13.8, Hematocrit 40.0L, Mean Corpuscular Volume 96.4H, Mean Corpuscular Hemoglobin 33.3H, Mean Corpuscular Hemoglobin Concent 34.5, Red Cell Distribution Width 13.7, Platelet Count 144L, Neutrophils (%) (Auto) 72.0H, Lymphocytes (%) (Auto) 11.5L, Monocytes (%) (Auto) 12.0H, Eosinophils (%) (Auto) 3.5H, Basophils (%) (Auto) 0.4, Neutrophils # (Auto) 6.7, Lymphocytes # (Auto) 1.1L, Monocytes # (Auto) 1.1H, Eosinophils # (Auto) 0.3, Basophils # (Auto) 0.0, Nucleated Red Blood Cells % (auto) 0.0, Anion Gap 8, Glomerular Filtration Rate 30.2L, Lactic Acid Level 1.4, Blood Urea Nitrogen 25H, Creatinine 2.23H, Sodium Level 138, Potassium Level 4.1, Chloride Level 108H, Carbon Dioxide Level 22, Calcium Level 8.3L, Aspartate Amino Transf (AST/SGOT) 16, Alanine Aminotransferase (ALT/SGPT) 23, Total Creatine Kinase 28L, Alkaline Phosphatase 73, Total Bilirubin 0.5, Total Protein 6.5, Albumin 3.3, Creatine Kinase MB < 1.0, Creatine Kinase MB Relative Index 3.57, Troponin I < 0.02, Albumin/Globulin Ratio 1.03 CBC/BMP Laboratory Tests 01/01/19 22:13 Red Blood Count 4.15 L, Mean Corpuscular Volume 96.4 H, Mean Corpuscular Hemog lobin 33.3 H, Mean Corpuscular Hemoglobin Concent 34.5, Red Cell Distribution Width 13.7, Neutrophils (%) (Auto) 72.0 H, Lymphocytes (%) (Auto) 11.5 L, Monocytes (%) (Auto) 12.0 H, Eosinophils (%) (Auto) 3.5 H, Basophils (%) (Auto) 0.4, Neutrophils # (Auto) 6.7, Lymphocytes # (Auto) 1.1 L, Monocytes # (Auto) 1.1 H, Eosinophils # (Auto) 0.3, Basophils # (Auto) 0.0, Calcium Level 8.3 L, Aspartate Amino Transf (AST/SGOT) 16, Alanine Aminotransferase (ALT/SGPT) 23, Total Creatine Kinase 28 L, Alkaline Phosphatase 73, Total Bilirubin 0.5, Total Protein 6.5, Albumin 3.3 Microbiology Microbiology 01/02/19 Blood Culture, Received Pending 01/01/19 Blood Culture, Received Pending 01/02/19 Gram Stain, Received Pending 01/02/19 Sputum Culture, Received Pending Assessment/Plan 83-year-old male presented to the ED at [facility] with his with complaints of fever, body aches and chills with shortness of breath that started earlier this evening. He has a significant medical history of chronic kidney disease stage III, GERD, BPH, emphysema, COPD, myocardial infarction 4 with last 2007, coronary artery disease, CABG with stent placements 2, hard of hearing left ear, deaf right ear, hyperlipidemia, history of leaky valve, essential hypertension. He received Zosyn in the ED via peripheral IV. Patient will be worked up for sepsis screening due to his fever of 101 on arrival. He is sinus tachycardia, heart rate 110 on EKG and 105- 108 on telemetry monitoring. Patient will be admitted to Med-Surg unit inpatient with remote telemetry and continuous pulse oximetry under hospitalist services. Blood cultures and sputum cultures pending. Personally reviewed patient's EKG, which shows sinus tachycardia. Vent rate 110, HI interval 160, QRS duration 86, QT/QTc 332/397, PRT axis 7 -35 . Left lower lobe pneumoniaacute. Admit inpatient to Med-Surg unit under hospitalist program Remote telemetry with continuous pulse oximetry. Monitor vital signs, weight daily s Continue Zosyn 4.5 g every 6 hours IV (per uptodate for CAP and sepsis) however due to patients creatinine 2.5 dose suggestion 2.25 g IV every 6 hours Acetaminophen 650 mg by mouth every 6 hours as needed for fever and/or mild pain 1-3 -Percocet 5-325 mg to severe pain 4-10 -CBC, CMP, lactic acid, magnesium, troponin trending, phosphorus, repeat EKG Acute kidney injury on CKD stage IIIacute on chronic Monitor CMP -Start IV fluids 125 mL an hour. Fluid resuscitation. Monitor I&O's Keep blood pressure within goal range systolic 160 and below -. Urinalysis reflux culture sensitivity Essential hypertension.Chronic Continue home medications Losartan 50 mg po hold if SBP <120 -Cardiac diet. Standard fluids BPHchronic. . Hyperlipidemiachronic -Continue taking atorvastatin 5 mg by mouth at bedtime Coronary artery disease/[place], oldchronic Aspirin 325 mg by mouth at daily Insomnia-chronic -Hold Ambien 5 mg while in hospital. Will start patient on Temazepam 7.5 mg po at bedtime as needed Hard of hearing-chronic -continue to wear hearing aid in left ear Angina pectorischronic. As episode 2 years ago Nitroglycerin 0.4 mg sublingual as needed Continued home medications magnesium chloride 64 mg Bowel program initiated Prognosis: Fair DVT prophylaxis: Pharmaceutical and SCDs/TEDs Discharge: Pending Plan / VTE VTE Prophylaxis Ordered?: Yes VTE Exclusion Mechanical Proph: Jefe Lower Ex DVT Plan IVF: Continue Diet: Advance Activity: Encourage Ambulation Diagnostics: Check Labs, Repeat Labs in AM, Obtain Cultures ABHIJEET GIL Jan 02, 2019 01:46
[2019-01-02] MEDS: ACETAMINOPHEN 500 MG TAB PO PRN ×2 (05:42→14:11)
[2019-01-02] MEDS: PIPERACILLIN/TAZOBACTAM SOD 2.25 GM in D5W MINI-BAG PLUS 50 ML IV SCH ×3 (05:43→21:25)
[2019-01-02 06:00] VITALS: BP 146/63
[2019-01-02] MEDS ORDERED: PIPERACILLIN/TAZOBACTAM SOD 3.375 GM in D5W MINI-BAG PLUS 50 ML IV SCH (06:00)
[2019-01-02 07:03] LABS: BASO % 0.4 % (0.0-1.0); EOS # 0.2 10^3/uL (0.0-0.5); EOS % 2.5 % (0.0-3.0); HEMATOCRIT 34.6 % (42.0-52.0); HEMOGLOBIN 11.9 g/dl (13.5-17.5); LYMPH # 0.8 10^3/uL (1.5-5.0); LYMPH % 8.9 % (24.0-44.0); MEAN CORPUSCULAR HEMOGLOBIN 33.2 pg (27.0-33.0); MEAN CORPUSCULAR HGB CONC 34.4 g/dl (32.0-36.5); MEAN CORPUSCULAR VOLUME 96.6 fl (80.0-96.0); MONO % 12.3 % (0.0-5.0); NEUTROPHILS # 6.4 10^3/uL (1.5-8.5); NEUTROPHILS % 75.2 % (36.0-66.0); PLATELET COUNT, AUTOMATED 121 10^3/uL (150-450); RED BLOOD COUNT 3.58 10^6/uL (4.30-6.10); WHITE BLOOD COUNT 8.5 10^3/uL (4.0-10.0)
[2019-01-02 07:32] LABS: CALCIUM LEVEL 8.1 MG/DL (8.8-10.2); CREATININE FOR GFR 2.12 MG/DL (0.70-1.30); POTASSIUM SERUM 3.7 MEQ/L (3.5-5.1)
--- NOTE | 2019-01-02 07:41 | REP ---
Clinical: Fever. Technique: PA and lateral. Comparison: 12/25/2018. Findings: Bibasilar atelectasis (left greater than right) is appreciated. No effusion. No pneumothorax. Visualized mediastinum and cardiac silhouette are stable. Skeletal structures intact. Impression: Mild bibasilar atelectasis (left greater than right). Electronically Signed by Braeden Hanna MD 01/02/2019 07:32 A
[2019-01-02] MEDS: DOCUSATE SODIUM 100 MG CAP PO SCH ×2 (08:26→20:45)
[2019-01-02] MEDS: FOLIC ACID 1 MG TAB PO SCH (08:26)
[2019-01-02] MEDS: OMEPRAZOLE 20 MG CAP PO SCH (08:26)
[2019-01-02] MEDS ORDERED: CO-ENZYME Q10 50 MG CAP PO SCH (09:00)
[2019-01-02] MEDS ORDERED: LOSARTAN 50 MG TAB PO SCH (09:00)
--- NOTE | 2019-01-02 12:49 | REP ---
Clinical: Shortness of breath and recurrent pneumonias. Technique: Axial noncontrast images from the thoracic inlet to the upper abdomen with coronal and sagittal re-formations. Comparison: 11/25/2016. Findings: The bilateral lung helms are relatively well aerated and clear. Minimal age-related scattered chronic interstitial changes are appreciated. No focal consolidation. No effusion. No pneumothorax. No significant nodule or mass lesion. Tracheobronchial tree is patent. No significant adenopathy. Mediastinum demonstrates atherosclerotic changes to the thoracic aorta and coronary arteries without aortic aneurysm or cardiomegaly. No pericardial effusion. Prior sternotomy noted. Musculoskeletal structures without focal osseous abnormality. Impression: 1. Mild chronic scattered interstitial age-related changes. 2. No acute mediastinal or pleuroparenchymal process. Electronically Signed by Braeden Hanna MD 01/02/2019 12:40 P
[2019-01-02 14:00] VITALS: BP 127/82
[2019-01-02 14:23] LABS: MAGNESIUM LEVEL 1.9 MG/DL (1.8-2.4)
[2019-01-02] MEDS: ASPIRIN ENTERIC 325 MG TAB PO SCH (20:45)
[2019-01-02] MEDS: ATORVASTATIN 10 MG TAB PO SCH (20:45)
[2019-01-02] MEDS: MAGNESIUM CHLORIDE 64 MG TABCR (SLO MAG) PO SCH (20:46)
[2019-01-02] MEDS ORDERED: MULTIVITAMINS/MINERALS THERAP 1 TAB PO SCH (21:00)
[2019-01-02 22:00] VITALS: BP 112/63
[2019-01-02 23:22] VITALS: O2SAT 89; O2SAT 98
[2019-01-03] MEDS: PIPERACILLIN/TAZOBACTAM SOD 2.25 GM in D5W MINI-BAG PLUS 50 ML IV SCH ×3 (05:42→21:28)
[2019-01-03 05:59] LABS: BASO % 0.3 % (0.0-1.0); EOS # 0.4 10^3/uL (0.0-0.5); EOS % 4.2 % (0.0-3.0); HEMATOCRIT 34.3 % (42.0-52.0); HEMOGLOBIN 11.6 g/dl (13.5-17.5); LYMPH # 1.4 10^3/uL (1.5-5.0); MEAN CORPUSCULAR HEMOGLOBIN 32.1 pg (27.0-33.0); MEAN CORPUSCULAR HGB CONC 33.8 g/dl (32.0-36.5); MONO # 1.2 10^3/uL (0.0-0.8); MONO % 12.3 % (0.0-5.0); NEUTROPHILS # 6.3 10^3/uL (1.5-8.5); NEUTROPHILS % 67.5 % (36.0-66.0); PLATELET COUNT, AUTOMATED 137 10^3/uL (150-450); RED BLOOD COUNT 3.61 10^6/uL (4.30-6.10); WHITE BLOOD COUNT 9.4 10^3/uL (4.0-10.0)
[2019-01-03 06:00] VITALS: BP 122/64
[2019-01-03 06:15] LABS: ABG BASE EXCESS -2.5 (-2.0-2.0); ABG HCO3 21.6 MEQ/L (22.0-26.0); ABG O2 SATURATION 96.9 % (95.0-99.0); ABG PARTIAL PRESSURE CO2 35.3 mmHg (35.0-45.0); ABG PARTIAL PRESSURE O2 87.8 mmHg (75.0-100.0); ABG STANDARD HCO3 22.4 MEQ/L (22.0-26.0); ABG TOTAL CO2 22.7 MEQ/L (23.0-31.0); ABG pH (ARTERIAL) 7.405 UNITS (7.350-7.450)
[2019-01-03 06:18] LABS: ALBUMIN 2.7 GM/DL (3.2-5.2); BILIRUBIN,TOTAL 0.5 MG/DL (0.2-1.0); CALCIUM LEVEL 8.2 MG/DL (8.8-10.2); CREATININE FOR GFR 2.04 MG/DL (0.70-1.30); GLOMERULAR FILTRATION RATE 33.4 (>35); MAGNESIUM LEVEL 2.1 MG/DL (1.8-2.4); POTASSIUM SERUM 3.9 MEQ/L (3.5-5.1); TOTAL PROTEIN 6.1 GM/DL (6.4-8.2)
[2019-01-03] MEDS: DOCUSATE SODIUM 100 MG CAP PO SCH ×2 (08:32→21:28)
[2019-01-03] MEDS: FOLIC ACID 1 MG TAB PO SCH (08:32)
[2019-01-03] MEDS: OMEPRAZOLE 20 MG CAP PO SCH (08:32)
--- NOTE | 2019-01-03 12:28 | IPNPDOC ---
Text Note Date of Service The patient was seen on 01/03/19. NOTE Subjective: Patient seen and examined at bedside. Continues to feel better. Still has dry cough, exacerbated by deep breaths. Objective: General: NAD, sitting comfortably in chair HEENT: NC/AT, EOMI Lungs: CTA B/L Heart: +S1S2, RRR Abd: soft, NT, +BS Ext: no edema A/P: 83-year-old male presented to the ED at [facility] with his with complaints of fever, body aches and chills with shortness of breath with PMHx CKD III, GERD, BPH, emphysema, COPD, CAD/MI4 with last 2007 s/p CABG/stent 2, hard of hearing left ear, deaf right ear, hyperlipidemia, valvulopathy, hypertension. Admitted for sepsis secondary to PNA in the setting of immunosuppression. #Left lower lobe pneumoniaacute. - stilll spiking fevers - check MRSA/respiratory panel - consider adding doxy - SCx pending - complicated with immunosuppresion - follow BCx #Acute kidney injury on CKD stage III - improving #HTN -continue home meds #BPH #. Hyperlipidemia -Continue atorvastatin 5 mg #CAD/ND Aspirin 325 mg by mouth at daily #Insomnia - holding Ambien 5 mg while in hospital - Temazepam 7.5 mg po at bedtime as needed VS,Fishbone, I+O VS, Fishbone, I+O Laboratory Tests 01/03/19 05:36 Red Blood Count 3.61 L, Mean Corpuscular Volume 95.0, Mean Corpuscular Hemoglobin 32.1, Mean Corpuscular Hemoglobin Concent 33.8, Red Cell Distribution Width 13.6, Neutrophils (%) (Auto) 67.5 H, Lymphocytes (%) (Auto) 15.0 L, Monocytes (%) (Auto) 12.3 H, Eosinophils (%) (Auto) 4.2 H, Basophils (%) (Auto) 0.3, Neutrophils # (Auto) 6.3, Lymphocytes # (Auto) 1.4 L, Monocytes # (Auto) 1.2 H, Eosinophils # (Auto) 0.4, Basophils # (Auto) 0.0, Calcium Level 8.2 L, Aspartate Amino Transf (AST/SGOT) 11, Alanine Aminotransferase (ALT/SGPT) 17, Alkaline Phosphatase 60, Total Bilirubin 0.5, Total Protein 6.1 L, Albumin 2.7 L Vital Signs Date Time Temp Pulse Resp B/P (MAP) Pulse Ox O2 Delivery O2 Flow Rate FiO2 01/03/19 06:00 98.5 67 20 122/64 (83) 94 01/02/19 23:22 Room Air 01/02/19 03:30 2.0 I&O- Last 24 Hours up to 6 AM 01/03/19 06:00 Intake Total 1490 ml Output Total 450 ml Balance 1040 ml GRACE MENEZES MD Jan 03, 2019 12:28
[2019-01-03 14:00] VITALS: BP 130/68
--- NOTE | 2019-01-03 20:25 | ECGEPIP ---
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 Electronically Signed on 01-03-2019 20:24:35 EDT by Rich Hays
[2019-01-03] MEDS: METHOTREXATE 2.5 MG TAB (J8610 PER 2.5MG) PO SCH ×2 (21:00→21:29)
[2019-01-03] MEDS: MAGNESIUM CHLORIDE 64 MG TABCR (SLO MAG) PO SCH (21:28)
[2019-01-03] MEDS: ASPIRIN ENTERIC 325 MG TAB PO SCH (21:29)
[2019-01-03] MEDS: ATORVASTATIN 10 MG TAB PO SCH (21:29)
[2019-01-03 22:00] VITALS: BP 122/63; O2SAT 96
[2019-01-04] MEDS: PIPERACILLIN/TAZOBACTAM SOD 2.25 GM in D5W MINI-BAG PLUS 50 ML IV SCH (05:35)
[2019-01-04 06:00] VITALS: BP 129/74
[2019-01-04 06:39] LABS: BASO % 0.5 % (0.0-1.0); EOS # 0.5 10^3/uL (0.0-0.5); EOS % 5.3 % (0.0-3.0); HEMATOCRIT 35.7 % (42.0-52.0); HEMOGLOBIN 12.4 g/dl (13.5-17.5); LYMPH # 1.6 10^3/uL (1.5-5.0); LYMPH % 18.7 % (24.0-44.0); MEAN CORPUSCULAR HEMOGLOBIN 33.4 pg (27.0-33.0); MEAN CORPUSCULAR HGB CONC 34.7 g/dl (32.0-36.5); MEAN CORPUSCULAR VOLUME 96.2 fl (80.0-96.0); NEUTROPHILS # 5.4 10^3/uL (1.5-8.5); NEUTROPHILS % 62.9 % (36.0-66.0); PLATELET COUNT, AUTOMATED 162 10^3/uL (150-450); RED BLOOD COUNT 3.71 10^6/uL (4.30-6.10); WHITE BLOOD COUNT 8.6 10^3/uL (4.0-10.0)
[2019-01-04 06:53] LABS: CALCIUM LEVEL 8.9 MG/DL (8.8-10.2); CREATININE FOR GFR 1.93 MG/DL (0.70-1.30); GLOMERULAR FILTRATION RATE 35.7 (>35); POTASSIUM SERUM 3.8 MEQ/L (3.5-5.1)
[2019-01-04] MEDS: FOLIC ACID 1 MG TAB PO SCH (09:29)
[2019-01-04] MEDS: OMEPRAZOLE 20 MG CAP PO SCH (09:29)
[2019-01-04] MEDS: DOCUSATE SODIUM 100 MG CAP PO SCH (09:31)
[2019-01-04] MEDS ORDERED: AUGM875T28 PO (11:06)
[2019-01-04] MEDS ORDERED: MUCI1TAB16 PO (11:06)
--- NOTE | 2019-01-04 15:13 | DS.PDOC ---
Discharge Summary General Date of Admission Jan 02, 2019 at 00:39 Date of Discharge 01/04/19 Discharge Summary PROCEDURES PERFORMED DURING STAY: [None]. DISCHARGE DIAGNOSES: 1. viral respiratory infection 2. community acquired pneumonia SECONDARY DIAGNOSES: #MINOR/CKD III #HTN #BPH #Hyperlipidemia #CAD/SD #Insomnia COMPLICATIONS/CHIEF COMPLAINT: Minor, Left Lower Lobe Pna. HISTORY OF PRESENT ILLNESS: 83-year-old male presented to the ED at [facility] with his with complaints of fever, body aches and chills with shortness of breath. He has a significant medical history of chronic kidney disease stage III, GERD, BPH, emphysema, COPD, myocardial infarction 4 with last 2007, coronary artery disease, CABG with stent placements 2, hyperlipidemia, history of leaky valve, essential hypertension. He received Zosyn in the ED. HOSPITAL COURSE: Patient treated for pneumonia with IV antibiotics, sputum culture unrevealing at time of discharge, but patient feeling much better. Successfully weaned off oxygen. Respiratory panel additionally revealed viral infection. Hospital stay otherwise unremarkable. Patient is immunocompromised, receives MTX and Remicade which should be held and reassessed for restarting. #Left lower lobe pneumonia #rhinovirus/enterovirus #MINOR/CKD III #HTN -continue home meds #BPH #Hyperlipidemia - atorvastatin 5 mg #CAD/SD Aspirin 325 mg by mouth at daily #Insomnia DISCHARGE MEDICATIONS: Please see below. ALLERGIES: Please see below. PHYSICAL EXAMINATION ON DISCHARGE: General: NAD, sitting comfortably in chair HEENT: NC/AT, EOMI Lungs: CTA B/L Heart: +S1S2, RRR Abd: soft, NT, +BS Ext: no edema LABORATORY DATA: Please see below. ACTIVITY: [As tolerated]. DISPOSITION: 01 Home, Self-Care. DISCHARGE INSTRUCTIONS: 1. Follow up with PCP in 3-5 days. 2. Hold methotrexate and remicade pending eval by PCP DISCHARGE CONDITION: [Stable]. TIME SPENT ON DISCHARGE: 40 minutes. Vital Signs/I&Os Vital Signs Date Time Temp Pulse Resp B/P (MAP) Pulse Ox O2 Delivery O2 Flow Rate FiO2 01/04/19 06:00 98.5 70 17 129/74 (92) 96 01/03/19 22:00 Room Air 01/02/19 03:30 2.0 I&O- Last 24 Hours up to 6 AM 01/04/19 05:59 Intake Total 2202 ml Output Total 600 ml Balance 1602 ml Laboratory Data Labs 24H Laboratory Tests 2 01/03/19 18:48: Methicillin-Resist S.aureus DNA PCR NOT DETECTED 01/04/19 06:14: Immature Granulocyte % (Auto) 0.6, White Blood Count 8.6, Red Blood Count 3.71L, Hemoglobin 12.4L, Hematocrit 35.7L, Mean Corpuscular Volume 96.2H, Mean Corpuscular Hemoglobin 33.4H, Mean Corpuscular Hemoglobin Concent 34.7, Red Cell Distribution Width 13.6, Platelet Count 162, Neutrophils (%) (Auto) 62.9, Lymphocytes (%) (Auto) 18.7L, Monocytes (%) (Auto) 12.0H, Eosinophils (%) (Auto) 5.3H, Basophils (%) (Auto) 0.5, Neutrophils # (Auto) 5.4, Lymphocytes # (Auto) 1.6, Monocytes # (Auto) 1.0H, Eosinophils # (Auto) 0.5, Basophils # (Auto) 0.0, Nucleated Red Blood Cells % (auto) 0.0, Anion Gap 7L, Glomerular Filtration Rate 35.7, Blood Urea Nitrogen 25H, Creatinine 1.93H, Sodium Level 143, Potassium Level 3.8, Chloride Level 112H, Carbon Dioxide Level 24, Calcium Level 8.9 CBC/BMP Laboratory Tests 01/04/19 06:14 Red Blood Count 3.71 L, Mean Corpuscular Volume 96.2 H, Mean Corpuscular Hemoglobin 33.4 H, Mean Corpuscular Hemoglobin Concent 34.7, Red Cell Distribu tion Width 13.6, Neutrophils (%) (Auto) 62.9, Lymphocytes (%) (Auto) 18.7 L, Monocytes (%) (Auto) 12.0 H, Eosinophils (%) (Auto) 5.3 H, Basophils (%) (Auto) 0.5, Neutrophils # (Auto) 5.4, Lymphocytes # (Auto) 1.6, Monocytes # (Auto) 1.0 H, Eosinophils # (Auto) 0.5, Basophils # (Auto) 0.0, Calcium Level 8.9 Microbiology Microbiology 01/03/19 Blood Culture - Preliminary, Resulted No growth after 24 hours . All specim... 01/03/19 Blood Culture - Preliminary, Resulted No growth after 24 hours . All specim... 01/02/19 Blood Culture - Preliminary, Resulted No Growth after 48 hours. All Specime... 01/01/19 Blood Culture - Preliminary, Resulted No Growth after 48 hours. All Specime... 01/03/19 MRSA Screen - Final, Complete 01/03/19 Respiratory Virus Panel (PCR) (CHEPE) - Final, Complete Human Rhinovirus/Enterovirus 01/02/19 Gram Stain - Final, Complete 01/02/19 Sputum Culture - Final, Complete Yeast Like Organism Discharge Medications Scheduled Amoxicillin/Potassium Clav (Augmentin 875-125 Tablet) 1 Each Tablet, 1 TAB PO BID Aspirin (Aspirin EC) 325 Mg Tabec, 325 MG PO QHS, (Reported) Atorvastatin Calcium (Lipitor) 10 Mg Tab, 5 MG PO QHS, (Reported) Folic Acid (Folic Acid) 1 Mg Tablet, 1 MG PO DAILY, (Reported) Guaifenesin (Mucinex) 1,200 Mg Tab.er.12h, 1 TAB PO BID for cough Losartan Potassium (Losartan Potassium) 50 Mg Tablet, 50 MG PO DAILY, (Reported) Magnesium Chloride (Mag64) 64 Mg Tabcr, 64 MG PO QHS, (Reported) Multivitamins (Thera M Plus Tablet) 1 Tab Tab, 1 TAB PO QHS, (Reported) Omeprazole (Omeprazole) 20 Mg Capsule.dr, 20 MG PO DAILY, (Reported) Ubidecarenone (Co Q-10) 200 Mg Cap, 200 MG PO DAILY, (Reported) Scheduled PRN Nitroglycerin (Nitrostat) 0.4 Mg Subl, 0.4 MG SL NITRO PRN for CHEST PAIN, (Reported) Prednisone (Prednisone) 5 Mg Tablet, 2.5 MG PO DAILY PRN for PAIN PREVENTION, (Reported) Zolpidem Tartrate (Ambien) 10 Mg Tab, 5 MG PO QHS PRN for SLEEP, (Reported) Allergies Coded Allergies: No Known Allergies (Verified , 01/01/19) GRACE MENEZES MD Jan 04, 2019 15:12
== END 2019-01-04 12:39 | disposition home or self-care (01) | DRG 194 ==
LOC: M ED 21:48 → M ED INP 01-02 00:39 → M MSPAV 01-02 03:15
PROVIDERS: ADMIT Internal Medicine Nephrology; ATTEND Internal Medicine
DX: J18.9 Pneumonia, unspecified organism (principal); N17.9 Acute kidney failure, unspecified; N18.3 Chronic kidney disease, stage 3 (moderate); K21.9 Gastro-esophageal reflux disease without esophagitis; N40.0 Benign prostatic hyperplasia without lower urinary tract symptoms; J43.9 Emphysema, unspecified; I25.2 Old myocardial infarction; I25.118 Atherosclerotic heart disease of native coronary artery with other forms of angina pectoris; J06.9 Acute upper respiratory infection, unspecified; G47.00 Insomnia, unspecified; B97.89 Other viral agents as the cause of diseases classified elsewhere; E78.5 Hyperlipidemia, unspecified; H91.93 Unspecified hearing loss, bilateral; I12.9 Hypertensive chronic kidney disease with stage 1 through stage 4 chronic kidney disease, or unspecified chronic kidney disease; Z95.5 Presence of coronary angioplasty implant and graft; Z87.891 Personal history of nicotine dependence; Z79.82 Long term (current) use of aspirin; Z79.899 Other long term (current) drug therapy

== ENCOUNTER → 2019-01-08 | Outpatient (REF) | payer MEDICARE ==
[~2019-01-08] MED LIST changes: -ALFU10TA2; +ALFU10TA3; +AMOX500C PO; +FOLI1TAB11 PO; +LOSA50TA88 PO; +MUCI1TAB16 PO; +OMEP1CAP73 PO; -OMEP20CA4 PO; +PRED5TA PO
[2019-01-08 17:39] LABS: ALBUMIN 3.2 GM/DL (3.2-5.2); BILIRUBIN,TOTAL 0.3 MG/DL (0.2-1.0); CREATININE FOR GFR 1.87 MG/DL (0.70-1.30); POTASSIUM SERUM 4.4 MEQ/L (3.5-5.1); TOTAL PROTEIN 6.4 GM/DL (6.4-8.2)
== END ==
LOC: M SFHCPLAZ 15:19
PROVIDERS: ATTEND Nurse Practitioner Adult Health
DX: R19.7 Diarrhea, unspecified (principal)

== ENCOUNTER → 2019-01-09 | Outpatient (REF) | payer MEDICARE ==
[~2019-01-09] MED LIST changes: +ALFU10TA2; -ALFU10TA3; -OMEP1CAP73 PO; +OMEP20CA4 PO
== END ==
LOC: M SFHCPLAZ 17:05
PROVIDERS: ATTEND Nurse Practitioner Adult Health
DX: R19.7 Diarrhea, unspecified (principal)

== ENCOUNTER → 2019-02-28 | Outpatient (REF) | payer MEDICARE ==
[2019-02-28 11:59] LABS: HEMATOCRIT 36.3 % (42.0-52.0); HEMOGLOBIN 12.1 g/dl (13.5-17.5); MEAN CORPUSCULAR HEMOGLOBIN 31.9 pg (27.0-33.0); MEAN CORPUSCULAR HGB CONC 33.3 g/dl (32.0-36.5); MEAN CORPUSCULAR VOLUME 95.8 fl (80.0-96.0); PLATELET COUNT, AUTOMATED 153 10^3/uL (150-450); RED BLOOD COUNT 3.79 10^6/uL (4.30-6.10); WHITE BLOOD COUNT 3.2 10^3/uL (4.0-10.0)
[2019-02-28 12:25] LABS: ALBUMIN 3.6 GM/DL (3.2-5.2); BILIRUBIN,TOTAL 0.4 MG/DL (0.2-1.0); CALCIUM LEVEL 9.5 MG/DL (8.8-10.2); CHOLESTEROL RISK RATIO 2.34 (<5); CREATININE FOR GFR 1.84 MG/DL (0.70-1.30); GLOMERULAR FILTRATION RATE 37.7 (>35); MAGNESIUM LEVEL 1.9 MG/DL (1.8-2.4); POTASSIUM SERUM 4.6 MEQ/L (3.5-5.1); TOTAL PROTEIN 7.9 GM/DL (6.4-8.2)
[2019-02-28 12:28] LABS: PTH INTACT 54.6 PG/ML (18.5-88.0)
== END ==
LOC: M SFHCPLAZ 10:23
PROVIDERS: ATTEND Internal Medicine
DX: I12.9 Hypertensive chronic kidney disease with stage 1 through stage 4 chronic kidney disease, or unspecified chronic kidney disease (principal); E78.00 Pure hypercholesterolemia, unspecified; N18.3 Chronic kidney disease, stage 3 (moderate)
CPT/HCPCS: 36415; 80053; 80061; 83735; 83970; 85027; 90682; G0008

== ENCOUNTER → 2019-03-19 | Outpatient (CLI) | payer MEDICARE ==
[2019-03-19 16:55] LABS: BASO % 0.6 % (0.0-1.0); EOS # 0.1 10^3/uL (0.0-0.5); EOS % 1.8 % (0.0-3.0); HEMATOCRIT 39.5 % (42.0-52.0); HEMOGLOBIN 12.9 g/dl (13.5-17.5); LYMPH # 1.1 10^3/uL (1.5-5.0); LYMPH % 16.3 % (24.0-44.0); MEAN CORPUSCULAR HEMOGLOBIN 32.4 pg (27.0-33.0); MEAN CORPUSCULAR HGB CONC 32.7 g/dl (32.0-36.5); MEAN CORPUSCULAR VOLUME 99.2 fl (80.0-96.0); MONO # 0.4 10^3/uL (0.0-0.8); NEUTROPHILS % 74.7 % (36.0-66.0); PLATELET COUNT, AUTOMATED 131 10^3/uL (150-450); RED BLOOD COUNT 3.98 10^6/uL (4.30-6.10); WHITE BLOOD COUNT 6.6 10^3/uL (4.0-10.0)
== END ==
LOC: M LRY 10:30
PROVIDERS: ATTEND Internal Medicine Rheumatology
DX: Z79.899 Other long term (current) drug therapy (principal)

== ENCOUNTER → 2019-08-27 | Outpatient (REF) | payer MEDICARE ==
[~2019-08-27] MED LIST changes: -ALFU10TA2; +ALFU10TA3; +OMEP1CAP73 PO; -OMEP20CA4 PO
[2019-08-27 12:00] LABS: ALBUMIN 3.9 GM/DL (3.2-5.2); BILIRUBIN,TOTAL 0.5 MG/DL (0.2-1.0); CALCIUM LEVEL 9.9 MG/DL (8.8-10.2); CREATININE FOR GFR 1.96 MG/DL (0.70-1.30); GLOMERULAR FILTRATION RATE 34.9 (>35); MAGNESIUM LEVEL 2.1 MG/DL (1.8-2.4); POTASSIUM SERUM 4.7 MEQ/L (3.5-5.1); TOTAL PROTEIN 7.6 GM/DL (6.4-8.2)
== END ==
LOC: M SFHCLERA 09:19
PROVIDERS: ATTEND Internal Medicine
DX: I12.9 Hypertensive chronic kidney disease with stage 1 through stage 4 chronic kidney disease, or unspecified chronic kidney disease (principal)

== ENCOUNTER → 2019-10-22 | Outpatient (CLI) | payer MEDICARE ==
[~2019-10-22] MED LIST changes: -ERYT1OIN26 OS; +ERYT5OIN25 OS
== END ==
LOC: M LRY 10:25
PROVIDERS: ATTEND Internal Medicine Rheumatology
DX: Z51.81 Encounter for therapeutic drug level monitoring (principal); Z79.899 Other long term (current) drug therapy; Z53.9 Procedure and treatment not carried out, unspecified reason

== ENCOUNTER → 2019-10-23 | Outpatient (CLI) | payer MEDICARE ==
[2019-10-23 12:21] LABS: BASO % 0.7 % (0.0-1.0); EOS # 0.2 10^3/uL (0.0-0.5); EOS % 4.5 % (0.0-3.0); HEMOGLOBIN 12.9 g/dl (13.5-17.5); LYMPH # 1.5 10^3/uL (1.5-5.0); LYMPH % 37.3 % (24.0-44.0); MEAN CORPUSCULAR HEMOGLOBIN 32.3 pg (27.0-33.0); MEAN CORPUSCULAR HGB CONC 33.9 g/dl (32.0-36.5); MEAN CORPUSCULAR VOLUME 95.2 fl (80.0-96.0); MONO # 0.2 10^3/uL (0.0-0.8); MONO % 5.5 % (0.0-5.0); NEUTROPHILS # 2.1 10^3/uL (1.5-8.5); NEUTROPHILS % 51.8 % (36.0-66.0); PLATELET COUNT, AUTOMATED 121 10^3/uL (150-450); RED BLOOD COUNT 3.99 10^6/uL (4.30-6.10)
[2019-10-23 12:30] LABS: CALCIUM LEVEL 8.9 MG/DL (8.8-10.2); CREATININE FOR GFR 1.9 MG/DL (0.70-1.30); GLOMERULAR FILTRATION RATE 36.2 (>35); POTASSIUM SERUM 4.8 MEQ/L (3.5-5.1)
== END ==
LOC: M LRY 09:10
PROVIDERS: ATTEND Internal Medicine Rheumatology
DX: Z51.81 Encounter for therapeutic drug level monitoring (principal); Z79.899 Other long term (current) drug therapy

== ENCOUNTER → 2019-12-21 | Outpatient (REF) | payer MEDICARE ==
[2019-12-21 19:48] LABS: HEMATOCRIT 37.6 % (42.0-52.0); HEMOGLOBIN 12.4 g/dl (13.5-17.5); PLATELET COUNT, AUTOMATED 108 10^3/uL (150-450); RED BLOOD COUNT 3.76 10^6/uL (4.30-6.10); WHITE BLOOD COUNT 4.2 10^3/uL (4.0-10.0)
[2019-12-21 20:12] LABS: ERYTHROCYTE SEDIMENTATION RATE 7 mm/hr (0-20)
[2019-12-21 20:56] LABS: ALBUMIN 3.9 GM/DL (3.2-5.2); ALT/SGPT 38 U/L (12-78); C REACTIVE PROTEIN QUANTITATIV < 0.30 MG/DL (0.00-0.30); CREATININE FOR GFR 1.91 MG/DL (0.70-1.30); FERRITIN 222 NG/ML (26-388); FOLATE > 24.0 NG/ML; IRON (FE) 157 UG/DL (65-175); PERCENT SATURATION 54.7 % (19.7-50.0); TOTAL IRON BINDING CAPACITY 287 UG/DL (250-450); VITAMIN B12 LEVEL 634 PG/ML
== END ==
LOC: M LRY 17:30
PROVIDERS: ATTEND Internal Medicine Rheumatology
DX: D64.9 Anemia, unspecified (principal); Z79.899 Other long term (current) drug therapy

== ENCOUNTER → 2020-01-24 | Outpatient (CLI) | payer MEDICARE ==
[2020-01-24 12:33] LABS: BASO % 0.8 % (0.0-1.0); EOS # 0.3 10^3/uL (0.0-0.5); EOS % 10.7 % (0.0-3.0); HEMATOCRIT 35.9 % (42.0-52.0); HEMOGLOBIN 11.8 g/dl (13.5-17.5); LYMPH # 0.9 10^3/uL (1.5-5.0); LYMPH % 37.2 % (24.0-44.0); MEAN CORPUSCULAR HEMOGLOBIN 33.2 pg (27.0-33.0); MEAN CORPUSCULAR HGB CONC 32.9 g/dl (32.0-36.5); MEAN CORPUSCULAR VOLUME 101.1 fl (80.0-96.0); MONO # 0.4 10^3/uL (0.0-0.8); MONO % 16.6 % (0.0-5.0); NEUTROPHILS % 34.3 % (36.0-66.0); PLATELET COUNT, AUTOMATED 119 10^3/uL (150-450); RED BLOOD COUNT 3.55 10^6/uL (4.30-6.10); WHITE BLOOD COUNT 2.5 10^3/uL (4.0-10.0)
[2020-01-24 12:36] LABS: FERRITIN 256 NG/ML (26-388); IRON (FE) 102 UG/DL (65-175); PERCENT SATURATION 32.9 % (19.7-50.0); TOTAL IRON BINDING CAPACITY 310 UG/DL (250-450)
[2020-01-24 12:43] LABS: FOLATE > 24.0 NG/ML (>5.4); VITAMIN B12 LEVEL 356 PG/ML (247-911)
[2020-01-24 12:52] LABS: NEUTROPHILS # 0.9 10^3/uL (1.5-8.5)
== END ==
LOC: M PLALAB 08:29
PROVIDERS: ATTEND Internal Medicine Rheumatology
DX: Z01.812 Encounter for preprocedural laboratory examination (principal); D64.9 Anemia, unspecified; Z20.828 Contact with and (suspected) exposure to other viral communicable diseases
CPT/HCPCS: 36415; 82607; 82728; 82746; 83550; 85025; U0003

== ENCOUNTER → 2020-01-24 | Outpatient (CLI) | payer MEDICARE | LOC: M LABSMTC 10:08 | PROVIDERS: ATTEND Physician Assistant | DX: Z01.812 Encounter for preprocedural laboratory examination (principal); Z20.828 Contact with and (suspected) exposure to other viral communicable diseases ==

== ENCOUNTER → 2020-02-07 | Outpatient (CLI) | payer MEDICARE | LOC: M LABSMTC 09:34 | PROVIDERS: ATTEND Physician Assistant Surgical | DX: Z20.828 Contact with and (suspected) exposure to other viral communicable diseases (principal) ==

== ENCOUNTER → 2020-02-28 | Outpatient (CLI) | payer MEDICARE | LOC: M LABSMTC 10:34 | PROVIDERS: ATTEND Physician Assistant Surgical | DX: Z11.59 Encounter for screening for other viral diseases (principal) ==

== ENCOUNTER → 2020-03-03 | Outpatient (REF) | payer MEDICARE ==
[2020-03-03 18:40] LABS: ALBUMIN 3.7 GM/DL (3.2-5.2); BILIRUBIN,TOTAL 0.6 MG/DL (0.2-1.0); CALCIUM LEVEL 9.3 MG/DL (8.8-10.2); CHOLESTEROL RISK RATIO 2.536 (<5); CREATININE FOR GFR 1.89 MG/DL (0.70-1.30); GLOMERULAR FILTRATION RATE 36.4 (>35); POTASSIUM SERUM 4.8 MEQ/L (3.5-5.1)
[2020-03-03 18:49] LABS: PTH INTACT 49.4 PG/ML (18.5-88.0)
== END ==
LOC: M PLALAB 08:54
PROVIDERS: ATTEND Internal Medicine
DX: I12.9 Hypertensive chronic kidney disease with stage 1 through stage 4 chronic kidney disease, or unspecified chronic kidney disease (principal); H90.3 Sensorineural hearing loss, bilateral; E78.00 Pure hypercholesterolemia, unspecified; N18.30 Chronic kidney disease, stage 3 unspecified

== ENCOUNTER → 2020-03-11 | Outpatient (REF) | payer MEDICARE ==
[2020-03-11 13:22] LABS: HEMATOCRIT 40.6 % (42.0-52.0); HEMOGLOBIN 13.3 g/dl (13.5-17.5); MEAN CORPUSCULAR HEMOGLOBIN 32.4 pg (27.0-33.0); MEAN CORPUSCULAR HGB CONC 32.8 g/dl (32.0-36.5); MEAN CORPUSCULAR VOLUME 98.8 fl (80.0-96.0); PLATELET COUNT, AUTOMATED 262 10^3/uL (150-450); RED BLOOD COUNT 4.11 10^6/uL (4.30-6.10); WHITE BLOOD COUNT 9.5 10^3/uL (4.0-10.0)
[2020-03-11 13:57] LABS: ATYPICAL LYMPH 7 % (0-5); BASOPHILS 2 % (0-1); EOSINOPHILS 1 % (0-3); LYMPHOCYTES 38 % (16-44); MONOCYTES 9 % (0-5); NEUTROPHILS 42 % (28-66)
[2020-03-11 13:58] LABS: PLATELET ESTIMATE NORMAL (NORMAL)
== END ==
LOC: M SFHCPLAZ 11:41
PROVIDERS: ATTEND Internal Medicine
DX: D69.6 Thrombocytopenia, unspecified (principal)
CPT/HCPCS: 36415; 85025; G0463

== ENCOUNTER 2020-04-25 16:47 | Emergency (ER) | payer MEDICARE ==
[~2020-04-25] VITALS: Ht 170.2 cm; Wt 89.1 kg
--- NOTE | 2020-04-25 17:27 | REP ---
INDICATION: Coronavirus workup COMPARISON: 01/01/2019 TECHNIQUE: Portable AP view of the chest FINDINGS: The mediastinum and cardiac silhouette are stable and within normal limits for portable technique. Evidence for prior sternotomy and CABG again noted. The lung helms demonstrate chronic changes without acute consolidation, effusion, or pneumothorax. Skeletal structures are intact. IMPRESSION: No acute cardiopulmonary process appreciated. <Electronically signed by Braeden Hanna > 04/25/20 [id number]
--- NOTE | 2020-04-25 17:28 | REPVR ---
PROCEDURE INFORMATION: Exam: CT Head Without Contrast Exam date and time: 04/25/2020 5:12 PM Age: 85 years old Clinical indication: Altered mental status/memory loss; Confusion or disorientation; Additional info: Altered +covid TECHNIQUE: Imaging protocol: Computed tomography of the head without contrast. Radiation optimization: All CT scans at this facility use at least one of these dose optimization techniques: automated exposure control; mA and/or kV adjustment per patient size (includes targeted exams where dose is matched to clinical indication); or iterative reconstruction. COMPARISON: CT Head without contrast 06/12/2014 8:57 AM FINDINGS: Brain: There is mild cerebral atrophy. Changes of chronic white matter microvascular disease are present. No signs of a recent infarction or hemorrhage. Cerebral ventricles: No ventriculomegaly. Bones/joints: Unremarkable. No acute fracture. Paranasal sinuses: Mucosal thickening in the paranasal sinuses. No layering fluid. Mastoid air cells: Right mastoid effusion. Left mastoid air cells are clear. Soft tissues: Unremarkable. IMPRESSION: 1. Atrophy and chronic white matter changes. No acute intracranial abnormality. 2. Chronic sinusitis. Electronically signed by: Royal Charles On 04/25/2020 17:28:12 PM
[2020-04-25 17:48] LABS: HEMATOCRIT 35.7 % (42.0-52.0); HEMOGLOBIN 11.7 g/dl (13.5-17.5); MEAN CORPUSCULAR HEMOGLOBIN 30.8 pg (27.0-33.0); MEAN CORPUSCULAR HGB CONC 32.8 g/dl (32.0-36.5); MEAN CORPUSCULAR VOLUME 93.9 fl (80.0-96.0); WHITE BLOOD COUNT 3.9 10^3/uL (4.0-10.0)
[2020-04-25 18:01] LABS: INR 1.17; PROTHROMBIN TIME 15.2 SECONDS (12.5-14.3)
[2020-04-25 18:02] LABS: FIBRINOGEN 333 MG/DL (221-452); PARTIAL THROMBOPLASTIN TIME 37.6 SECONDS (24.2-38.5)
[2020-04-25 18:07] LABS: PLATELET COUNT, AUTOMATED 81 10^3/uL (150-450)
[2020-04-25 18:15] LABS: ATYPICAL LYMPH 6 % (0-5); BASOPHILS 1 % (0-1); EOSINOPHILS 3 % (0-3); LYMPHOCYTES 34 % (16-44); MONOCYTES 13 % (0-5); MYELOCYTES 3 % (0-0); NEUTROPHILS 39 % (28-66)
[2020-04-25 18:16] LABS: ALBUMIN 3.3 GM/DL (3.2-5.2); ALT/SGPT 26 U/L (12-78); ANISOCYTOSIS 1+; BILIRUBIN,TOTAL 0.5 MG/DL (0.2-1.0); BLOOD UREA NITROGEN 22 MG/DL (7-18); C REACTIVE PROTEIN QUANTITATIV 1.57 MG/DL (0.00-0.30); CALCIUM LEVEL 8.3 MG/DL (8.8-10.2); CARBON DIOXIDE LEVEL 26 MEQ/L (21-32); CHLORIDE LEVEL 108 MEQ/L (98-107); CK-MB VALUE MASS < 1.0 NG/ML (<3.6); CPK CREATINE PHOSPHOKINASE 25 U/L (39-308); CREATININE FOR GFR 2.01 MG/DL (0.70-1.30); FERRITIN 433 NG/ML (26-388); GLOMERULAR FILTRATION RATE 33.9 (>35); GLUCOSE, FASTING 115 MG/DL (70-100); LDH LACTATE DEHYDROGENASE 174 U/L (87-241); MAGNESIUM LEVEL 1.7 MG/DL (1.8-2.4); PLATELET ESTIMATE DECREASED (NORMAL); POTASSIUM SERUM 4.2 MEQ/L (3.5-5.1); SODIUM LEVEL 138 MEQ/L (136-145); TOTAL PROTEIN 6.8 GM/DL (6.4-8.2); TROPONIN I < 0.02 NG/ML (< 0.10)
[2020-04-25 18:23] LABS: D-DIMER QUANT > 4000 ng/ml (<500)
[2020-04-25 18:26] VITALS: BP 145/78
[2020-04-25] MEDS ORDERED: MELA5CAP2 PO (18:36)
[2020-04-25] MEDS ORDERED: FLOM0.4C39 PO (18:36)
--- NOTE | 2020-04-25 18:43 | ECGEPIP ---
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
[2020-04-26] MEDS ORDERED: METH2.5T48 PO (00:49)
[2020-04-26] MEDS ORDERED: PRED5TA PO (00:49)
== END 2020-04-25 19:00 | disposition home or self-care (01) ==
LOC: EDBD 16:47 → M ED 16:47
DX: D69.6 Thrombocytopenia, unspecified (principal); U07.1 COVID-19; I10 Essential (primary) hypertension; E78.9 Disorder of lipoprotein metabolism, unspecified; N18.30 Chronic kidney disease, stage 3 unspecified; Z95.1 Presence of aortocoronary bypass graft; Z87.891 Personal history of nicotine dependence

== ENCOUNTER 2020-04-25 22:33 | Inpatient (IN) | payer MEDICARE ==
[~2020-04-25] VITALS: Ht 167.6 cm; Wt 90.1 kg
[~2020-04-25 22:33] MED LIST changes: +MELA5CAP2 PO
[2020-04-25] MEDS ORDERED: ACETAMINOPHEN TAB 650MG DOSE (2X325MG) PO ONE (22:45)
--- NOTE | 2020-04-25 23:08 | REPVR ---
PROCEDURE INFORMATION: Exam: CT Head Without Contrast Exam date and time: 04/25/2020 10:45 PM Age: 85 years old Clinical indication: Injury or trauma; Fall; Blunt trauma (contusions or hematomas) TECHNIQUE: Imaging protocol: Computed tomography of the head without contrast. Radiation optimization: All CT scans at this facility use at least one of these dose optimization techniques: automated exposure control; mA and/or kV adjustment per patient size (includes targeted exams where dose is matched to clinical indication); or iterative reconstruction. COMPARISON: CT Head without contrast 04/25/2020 5:07 PM FINDINGS: Brain: There is mild cerebral atrophy. Changes of chronic white matter microvascular disease are present. No signs of a recent infarction or hemorrhage. Cerebral ventricles: No ventriculomegaly. Bones/joints: Unremarkable. No acute fracture. Paranasal sinuses: Mucosal thickening in the paranasal sinuses. Mastoid air cells: Small right mastoid effusion. Soft tissues: Unremarkable. IMPRESSION: 1. Atrophy and chronic white matter changes. No acute intracranial abnormality. 2. Chronic sinusitis. Electronically signed by: Royal Charles On 04/25/2020 23:08:04 PM
--- NOTE | 2020-04-25 23:13 | REPVR ---
PROCEDURE INFORMATION: Exam: CT Cervical Spine Without Contrast Exam date and time: 04/25/2020 10:45 PM Age: 85 years old Clinical indication: Injury or trauma; Fall; Blunt trauma TECHNIQUE: Imaging protocol: Computed tomography images of the cervical spine without contrast. Radiation optimization: All CT scans at this facility use at least one of these dose optimization techniques: automated exposure control; mA and/or kV adjustment per patient size (includes targeted exams where dose is matched to clinical indication); or iterative reconstruction. COMPARISON: No relevant prior studies available. FINDINGS: Bones/joints: Grade 1 anterolisthesis at C4-C5. Otherwise normal alignment. No acute fracture. Discs/Spinal canal/Neural foramina: Discogenic degenerative changes in the cervical spine. No spinal stenosis. Multilevel facet DJD with neural foraminal stenoses. Lungs: Lung apices are normal. Soft tissues: Unremarkable. IMPRESSION: 1. No fracture. 2. Advanced degenerative spondylosis as above. Electronically signed by: Royal Charles On 04/25/2020 23:13:17 PM
--- NOTE | 2020-04-25 23:41 | HPEPDOC ---
[facility] Medical History & Physical Date of Admission Apr 26, 2020 Date of Service: Apr 26, 2020 Attending Physician: ADELINE BANEGAS MD History and Physical TIME OF SERVICE: 1120PM CHIEF COMPLAINT: confusion HISTORY OF PRESENT ILLNESS: This is this 85 yr old gentleman was diagnosed with COVID 19 on Apr 19. This is his second visit to the ER this evening. The first time his called EMS because she noticed that he was confused and suspected that he may have a fever because he usually has confusion with fevers; he was not hypoxemic and discharged home, but when he went home he had a fall and subsequently returned to the ER where repeat O2 sats were noted to be 86%. At the time of my assessm ent the patient was alert but too confused to provide any meaningful history. REVIEW OF SYSTEMS: 12-point review of systems negative except as listed in HPI PAST MEDICAL/ SURGICAL HISTORY: COPD CKD 3 RA on MTX CAD/CABG / PCI w stents Unspecified valvulopathy Chronic HTN DLP Carotid artery disease GERD Class 1 obesity Impaired hearing Hernia repair Appendectomy Cholecystectomy Resection of colonic polyp Bilateral cataract surgery Left inguinal hernia repair Right ear tympanoplasty Left total knee replacement SOCIAL HISTORY: Former smoker Drinks alcohol 1x a month FAMILY HISTORY: PUD, CAD, HTN, breast cancer ALLERGIES: Please see below. HOME MEDICATIONS: Please see below. PHYSICAL EXAMINATION: Vital Signs Date Time Temp Pulse Resp B/P (MAP) Pulse Ox O2 Delivery O2 Flow Rate FiO2 04/25/20 22:35 102.1 87 16 159/83 87 Room Air 04/25/20 23:03 2.0 GENERAL APPEARANCE: well-nourished / well developed /NAD HEENT: EOMI / no scleral icterus /MMM&P / not wearing his mask / NC in place CARDIOVASCULAR: RRR/NMRG/ radial pulses intact LUNGS: coughing/ not using accessory muscles / lungs are CTAB ABDOMEN: contour obese / abd soft & NT on palpation MUSCULOSKELETAL: NCAT / KENDRA x 4 INTEGUMENT: extremities warm and well perfused NEUROLOGICAL: speech not dysarthric PSYCHIATRIC: alert but confused LABORATORY DATA: 04/26/20 00:51 CMP pending... IMAGING: CT head w/o contrast IMPRESSION: 1. Atrophy and chronic white matter changes. No acute intracranial abnormality. 2. Chronic sinusitis. CT cervical spine IMPRESSION: 1. No fracture. 2. Advanced degenerative spondylosis as above. MICROBIOLOGY: Blood cx pending ASSESSMENT: is an 85 yr old w a hx of RA, CKD3, COPD, CAD/CABG, HTN, DLP & Class 1 obesity who was sent to the ER by his for evaluation of confusion and a fall and was found to have hypoxemia; he will be admitted for Encephalopathy likely 2/2 hypoxemia, acute COPD 2/2 COVID 19, Sepsis and Neutropenic fever with pancytopenia. PLAN: 1. Encephalopathy Likely 2/[address] head neg for acute CVA Plan: admit to medical floor / frequent Neurochecks / f/u VBG to r/o co-existing hypercapnia 2. Acute COPD 2/2 COVID-19 Reason for admission: [place] chronic obstructive pulmonary disease risk scare (OCRS) guide to admission vs discharge in COPD exacerbation = 3 points = high risk = 12.5% risk of ERNEE (ie intubation, ect) Plan: supplemental O2 / continuous pulse oximetry / aspiration precautions / COPD diet / f/u VBG, sputum cx / albuterol/ipatropium Q6H, Albuterol Q4HP, steroids per COVID order set + PPI / abx / Tessalon Pearls / he should be referred to Pulmonary Rehab which has been shown to reduce exacerbation & mortality if patient attends within 4 weeks of episode of acute COPD when he is ready for discharge 3. Sepsis 2/2 COVID 19 PNA SIRS criteria: Temp =102.1 / WBC <4 CRP elevated & plts <100 Lactic acid <2 qSOFA Score = 1 point = not high risk Plan: telemetry / Zosyn and Vanc per Sepsis order set / since his BP is high will not order IVF and follow COVID guidelines that recommend being conservative with IVF /f/u blood cx, sputum culture / Acetaminophen PRN for fever / target MAP at of least 65 to 70 / f/u Is and Os with target UOP of at least 0.5 ml/kg/H / f/u FSBS Q6H w target serum glucose 140-180 while acutely ill 4. COVID-19 Plan: continuous pulse ox / supplemental O2 / contact & air borne precautions / in 12 H f/u repeat plts (if low indicates bad prognosis), CRP (if high indicates bad prognosis), troponin (if elevated will need an echo), INR, BMP, fibrinogen, INR, D-dimer, PT, PTT (if patient has DIC indicates bad prognosis), ferritin, LDH, procalcitonin (if low will help rule out bacterial PNA so we can descalate abx) / VBG / since he is hypoxemic I will start steroids /per Pharmacist [place] Cheema his Cr-Cl is to low to start remdesivir / since his D-dimer is >4000 I will start COVID DVT Px dose of lovenox with dosing per order set along with ASA / Supplemental O2 up to 3L with target O2 sats between 92-95% / if FiO2 <75% will consider early elective intubation 5. Neutropenic Fever with Pancytopenia TMax 102.1 Unable to calculate ANC bc neutrophil count was not done [facility] [place] Febrile Neutropenia Risk to identify patients at low risk for poor outcome with febrile neutropenia = 14 points = high risk for poor out comes = admission for in patient abx is indicated Plan: neutropenic precautions pending peripheral smear results to calculate ANC / will request Pathologist to review peripheral smear bc of atypical lymphocytes / prophylactic abx per sepsis order set / per UpToDate because he has neutropenia with fever and is at high risk, based on his age, the presence of COVID and sepsis, for infection associated complications we will start Neupogen 5. Hypomagnesemia His Mag was 1.7 before he was discharged earlier on in the evening Plan: Mag oxide 6. CKD 3 Plan: f/u BMP 7. RA Plan: MTX w Folic acid 8. Chronic CAD/CABG / PCI w stents / DLP/ Carotid artery disease Plan: nitroglycerin, ASA, Atorvastatin 9. Chronic HTN Plan: losartan 10. GERD Plan: PPI 11. 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 consult, to discuss staring Saxenda which is indicated in patients with a BMI >27 with co-existing HTN or dyslipidemia to help with weight control as an adjunct to exercise / recommend cardiovascular exercise for 40 min 4-5 days a week Home Medications Scheduled Aspirin (Aspirin EC) 325 Mg Tabec, 325 MG PO DAILY Atorvastatin Calcium (Lipitor) 10 Mg Tab, 10 MG PO QHS Folic Acid (Folic Acid) 1 Mg Tablet, 1 MG PO DAILY Losartan Potassium (Losartan Potassium) 50 Mg Tablet, 50 MG PO DAILY Methotrexate Sodium (Methotrexate) 2.5 Mg Tablet, 20 MG PO QWEEK TUESDAY Multivitamins (Thera M Plus Tablet) 1 Tab Tab, 1 TAB PO QHS Omeprazole (Omeprazole) 20 Mg Capsule.dr, 20 MG PO DAILY Prednisone (Prednisone) 5 Mg Tablet, 5 MG PO BID STARTED 04/23/20 X12 DAYS Tamsulosin HCl (Flomax) 0.4 Mg Capsule, 0.4 MG PO DAILY Ubidecarenone (Co Q-10) 200 Mg Cap, 200 MG PO DAILY Scheduled PRN Melatonin (Melatonin) 5 Mg Capsule, 5 MG PO QPM PRN for SLEEP Nitroglycerin (Nitrostat) 0.4 Mg Subl, 0.4 MG SL NITRO PRN for CHEST PAIN Allergies Coded Allergies: No Known Allergies (Verified , 01/01/19) A-FIB/CHADSVASC A-FIB History Current/History of A-Fib/PAF?: No Current PO Anticoag Therapy: No ADELINE BANEGAS MD Apr 25, 2020 23:41
[2020-04-25] MEDS ORDERED: ACETAMINOPHEN TAB 650MG DOSE (2X325MG) PO PRN (23:45)
[2020-04-25] MEDS ORDERED: MAALOX 30 ML SUSP *UDC PO PRN (23:45)
[2020-04-25] MEDS ORDERED: MOM 30ML SUSPENSION UDC PO PRN (23:45)
[2020-04-26] MEDS ORDERED: VANCOMYCIN HCL 1,000 MG, VIAL MATE ADAPTER 1 EACH in D5W 250 ML IV SCH (00:15)
[2020-04-26] MEDS ORDERED: PRED5TA PO (00:49)
[2020-04-26] MEDS ORDERED: METH2.5T48 PO (00:49)
[2020-04-26 01:02] LABS: HEMATOCRIT 34.6 % (42.0-52.0); HEMOGLOBIN 11.7 g/dl (13.5-17.5); MEAN CORPUSCULAR HEMOGLOBIN 31.1 pg (27.0-33.0); MEAN CORPUSCULAR HGB CONC 33.8 g/dl (32.0-36.5); RED BLOOD COUNT 3.76 10^6/uL (4.30-6.10); WHITE BLOOD COUNT 3.9 10^3/uL (4.0-10.0)
[2020-04-26 01:14] LABS: PLATELET COUNT, AUTOMATED 83 10^3/uL (150-450)
[2020-04-26 01:16] LABS: INR 1.05; PROTHROMBIN TIME 13.9 SECONDS (12.5-14.3)
[2020-04-26 01:17] LABS: FIBRINOGEN 314 MG/DL (221-452)
[2020-04-26 01:22] LABS: ATYPICAL LYMPH 14 % (0-5); BASOPHILS 1 % (0-1); LYMPHOCYTES 27 % (16-44); MONOCYTES 13 % (0-5); NEUTROPHILS 45 % (28-66); PARTIAL THROMBOPLASTIN TIME 30.6 SECONDS (24.2-38.5); PLATELET ESTIMATE DECREASED (NORMAL)
[2020-04-26 01:24] LABS: TOXIC VACUOLATION 1+
[2020-04-26 01:39] LABS: D-DIMER QUANT > 4000 ng/ml (<500)
[2020-04-26] MEDS ORDERED: SODIUM CHLORIDE 0.9% INJ 10 ML SYR IV ONE ×2 (01:45→18:00)
[2020-04-26] MEDS: PIPERACILLIN/TAZOBACTAM SOD 2.25 GM in D5W MINI-BAG PLUS 50 ML IV SCH ×4 (02:13→20:40)
[2020-04-26] MEDS ORDERED: VANCOMYCIN HCL 750 MG, VIAL MATE ADAPTER 1 EACH in D5W 250 ML IV ONE ×2 (03:00→04:00)
[2020-04-26] MEDS ORDERED: ALBUTEROL 90 MCG/ACT 8GM HFA INHALER INH PRN (04:00)
[2020-04-26] MEDS ORDERED: NITROGLYCERIN 0.4 MG SUBL TABLET SL PRN (04:30)
[2020-04-26 04:45] LABS: ALBUMIN 3.5 GM/DL (3.2-5.2); ALT/SGPT 25 U/L (12-78); BILIRUBIN,DIRECT 0.2 MG/DL (0.0-0.2); BILIRUBIN,TOTAL 0.5 MG/DL (0.2-1.0); BLOOD UREA NITROGEN 25 MG/DL (7-18); C REACTIVE PROTEIN QUANTITATIV 1.77 MG/DL (0.00-0.30); CALCIUM LEVEL 8.7 MG/DL (8.8-10.2); CARBON DIOXIDE LEVEL 21 MEQ/L (21-32); CHLORIDE LEVEL 109 MEQ/L (98-107); CK-MB VALUE MASS < 1.0 NG/ML (<3.6); CPK CREATINE PHOSPHOKINASE 29 U/L (39-308); CREATININE FOR GFR 2.06 MG/DL (0.70-1.30); FERRITIN 507 NG/ML (26-388); GLOMERULAR FILTRATION RATE 32.9 (>35); GLUCOSE, FASTING 116 MG/DL (70-100); LDH LACTATE DEHYDROGENASE 175 U/L (87-241); MB/CK RELATIVE INDEX 3.45 (< OR =4); NT-PRO BNP 463 PG/ML (<450); POTASSIUM SERUM 4.2 MEQ/L (3.5-5.1); SODIUM LEVEL 138 MEQ/L (136-145); TOTAL PROTEIN 6.9 GM/DL (6.4-8.2); TRIGLYCERIDES LEVEL 100 MG/DL (<150); TROPONIN I < 0.02 NG/ML (< 0.10)
[2020-04-26 05:52] LABS: VENOUS BASE EXCESS -8.4 (-2.0-2.0); VENOUS HCO3 18.5 MEQ/L (23.0-27.0); VENOUS O2 SATURATION 46.5 % (60.0-80.0); VENOUS PARTIAL PRESSURE CO2 43.2 mmHg (38.0-50.0); VENOUS PARTIAL PRESSURE O2 28.1 mmHg (30.0-50.0); VENOUS STANDARD HCO3 16.8 MEQ/L; VENOUS TOTAL CO2 19.8 MEQ/L (24.0-28.0)
[2020-04-26] MEDS ORDERED: NS 1,000 ML IV ONE (08:30)
[2020-04-26] MEDS ORDERED: FILGRASTIM 480 MCG/0.8 ML SYRINGE (J1442) SC SCH (09:00)
[2020-04-26] MEDS: PANTOPRAZOLE 40MG TAB (PROTONIX) PO SCH (09:10)
[2020-04-26] MEDS: FOLIC ACID 1 MG TAB PO SCH (09:10)
[2020-04-26] MEDS: ASPIRIN 81 MG ENTERIC TAB PO SCH (09:10)
[2020-04-26] MEDS: TAMSULOSIN 0.4 MG CAP PO SCH (09:10)
[2020-04-26] MEDS: LOSARTAN 50MG TABLET PO SCH (09:11)
[2020-04-26] MEDS: ENOXAPARIN 60MG/0.6ML SYRINGE (J1650 PER 10MG) SC SCH (09:12)
[2020-04-26] MEDS: COMBIVENT RESPIMAT 100-20MCG INHALER 4GM INH SCH ×3 (10:49→19:43)
[2020-04-26 11:49] LABS: HEMATOCRIT 37.1 % (42.0-52.0); HEMOGLOBIN 12.3 g/dl (13.5-17.5); MEAN CORPUSCULAR HEMOGLOBIN 31.1 pg (27.0-33.0); MEAN CORPUSCULAR HGB CONC 33.2 g/dl (32.0-36.5); MEAN CORPUSCULAR VOLUME 93.7 fl (80.0-96.0); RED BLOOD COUNT 3.96 10^6/uL (4.30-6.10); WHITE BLOOD COUNT 4.3 10^3/uL (4.0-10.0)
[2020-04-26 11:51] LABS: PLATELET COUNT, AUTOMATED 76 10^3/uL (150-450)
[2020-04-26 12:00] LABS: FIBRINOGEN 343 MG/DL (221-452); INR 1.16; PARTIAL THROMBOPLASTIN TIME 25.6 SECONDS (24.2-38.5); PROTHROMBIN TIME 15.1 SECONDS (12.5-14.3)
[2020-04-26 12:19] LABS: FERRITIN 528 NG/ML (26-388); LDH LACTATE DEHYDROGENASE 204 U/L (87-241); NT-PRO BNP 387 PG/ML (<450); TRIGLYCERIDES LEVEL 99 MG/DL (<150); TROPONIN I < 0.02 NG/ML (< 0.10)
[2020-04-26 12:24] LABS: ATYPICAL LYMPH 6 % (0-5); LYMPHOCYTES 53 % (16-44); MONOCYTES 16 % (0-5); NEUTROPHILS 25 % (28-66); PLATELET ESTIMATE DECREASED (NORMAL)
[2020-04-26 12:25] LABS: ANISOCYTOSIS 1+
[2020-04-26 13:02] LABS: D-DIMER QUANT > 4000 ng/ml (<500)
[2020-04-26] MEDS: dexameTHASONE 4 MG/ML 1ML VIAL (J1100 PER 1MG) IV SCH (13:35)
--- NOTE | 2020-04-26 13:56 | IPNPDOC ---
Text Note Date of Service The patient was seen on 04/26/20. NOTE Subjective: Patient complains of shortness of breath. Patient seems mildly c onfused in the morning. Objective: GENERAL APPEARANCE: NAD HEENT: no scleral icterus, no JVD, EOMI CARDIOVASCULAR: S1S2 LUNGS: Diminished lung sounds bilaterally ABDOMEN: soft & not tender w palpitation MUSCULOSKELETAL: no cyanosis, no swelling INTEGUMENT: no generalized palor NEUROLOGICAL: cranial nerve function from 2-12 intact intact, follows commands, speech not dysarthric Pt is an 85 yr old w a hx of RA, CKD3, COPD, CAD/CABG, HTN, DLP & Class 1 obesity who was sent to the ER by his for evaluation of confusion and a fall and was found to have hypoxemia; he will be admitted for Encephalopathy likely 2/2 hypoxemia, acute COPD 2/2 COVID 19, sepsis. Metabolic encephalopathy Secondary to sepsis secondary to COVID 19 Improved Shortness of breath Most likely due to COVID 19 Chest x-ray ordered Sepsis Secondary to COVID 19 Patient has mild leukopenia which resolved I stopped Neupogen, no indication We'll check pro calcitonin. If it's negative I ll stop antibiotics IV fluid COVID 19 Remdesevir started Continue steroids Inhalers Therapeutic anticoagulation BHARATH Secondary to dehydration due to sepsis IV fluid Rheumatoid arthritis Methotrexate DC Chronic CAD/CABG / PCI w stents / DLP/ Carotid artery disease Continue home cardioprotective medications Hypertension Blood pressure under control GERD PPI Obesity Complicated care VS,Fishbone, I+O VS, Fishbone, I+O Laboratory Tests 04/26/20 00:51 04/26/20 11:28 Vital Signs Date Time Temp Pulse Resp B/P (MAP) Pulse Ox O2 Delivery O2 Flow Rate FiO2 04/26/20 12:30 86 99 04/26/20 12:27 99.7 04/26/20 11:58 132/65 (87) 04/26/20 09:00 20 Room Air 04/26/20 02:03 2.0 CHICHI DAWN DO Apr 26, 2020 13:56
[2020-04-26 14:13] LABS: ALBUMIN 3.4 GM/DL (3.2-5.2); ALT/SGPT 23 U/L (12-78); BILIRUBIN,TOTAL 0.6 MG/DL (0.2-1.0); BLOOD UREA NITROGEN 25 MG/DL (7-18); CARBON DIOXIDE LEVEL 23 MEQ/L (21-32); CHLORIDE LEVEL 108 MEQ/L (98-107); GLOMERULAR FILTRATION RATE 30.5 (>35); GLUCOSE, FASTING 102 MG/DL (70-100); POTASSIUM SERUM 4.1 MEQ/L (3.5-5.1); SODIUM LEVEL 140 MEQ/L (136-145); TOTAL PROTEIN 6.9 GM/DL (6.4-8.2)
--- NOTE | 2020-04-26 14:17 | REP ---
INDICATION: pneumonia COMPARISON: 04/25/2020 TECHNIQUE: Portable AP view of the chest FINDINGS: The mediastinum and cardiac silhouette are stable and within normal limits for portable technique. Evidence for prior sternotomy and CABG again noted. Examination now demonstrates a newly visible left lower lobe infiltrate compatible with pneumonia. No effusion. No pneumothorax. IMPRESSION: Moderate left lower lobe infiltrate compatible with pneumonia. <Electronically signed by Braeden Hanna > 04/26/20 [id number]
[2020-04-26 15:00] VITALS: BP 98/54
[2020-04-26] MEDS: NS 1,000 ML IV SCH ×2 (16:08→18:07)
[2020-04-26] MEDS ORDERED: VANCOMYCIN HCL 750 MG, VIAL MATE ADAPTER 1 EACH in D5W 250 ML IV SCH (18:00)
[2020-04-26] MEDS ORDERED: VANCOMYCIN HCL 500 MG in D5W MINI-BAG PLUS 100 ML IV SCH (19:00)
[2020-04-26 19:44] VITALS: O2SAT 96
[2020-04-26 20:00] VITALS: BP 115/56
[2020-04-26] MEDS: ATORVASTATIN 10 MG TAB PO SCH (20:05)
[2020-04-27] MEDS ORDERED: SODIUM CHLORIDE 0.9% INJ 10 ML SYR IV SCH (00:45)
[2020-04-27 02:08] VITALS: O2SAT 98
[2020-04-27] MEDS: COMBIVENT RESPIMAT 100-20MCG INHALER 4GM INH SCH ×4 (02:08→19:31)
[2020-04-27] MEDS: PIPERACILLIN/TAZOBACTAM SOD 2.25 GM in D5W MINI-BAG PLUS 50 ML IV SCH ×4 (02:19→22:45)
[2020-04-27 04:00] VITALS: BP 117/59
[2020-04-27] MEDS: NS 1,000 ML IV SCH ×3 (06:22→17:50)
[2020-04-27 07:40] LABS: APPEARANCE, URINE CLEAR (CLEAR); BACTERIA, URINE AUTO NEGATIVE (NEGATIVE); BILIRUBIN, URINE AUTO NEGATIVE (NEGATIVE); BLOOD, URINE BLOOD NEGATIVE (NEGATIVE); COLOR, URINE YELLOW (YELLOW); GLUCOSE, URINE (UA) AUTO NEGATIVE (NEGATIVE); KETONE, URINE AUTO NEGATIVE (NEGATIVE); LEUKOCYTE ESTERASE, URINE AUTO NEGATIVE (NEGATIVE); MUCUS, URINE SMALL (NEGATIVE); NITRITE, URINE AUTO NEGATIVE (NEGATIVE); PROTEIN, URINE AUTO NEGATIVE (NEGATIVE); RBC, URINE AUTO 0 /HPF (0-3); SPECIFIC GRAVITY URINE AUTO 1.013 (1.002-1.035); SQUAMOUS EPITHELIAL CELL UR AU 0 /HPF (0-6); UROBILINOGEN, URINE AUTO 0.2 mg/dL (0.0-2.0); WBC, URINE AUTO 0 /HPF (0-3)
[2020-04-27 07:49] LABS: HEMATOCRIT 34.5 % (42.0-52.0); HEMOGLOBIN 11.2 g/dl (13.5-17.5); MEAN CORPUSCULAR HGB CONC 32.5 g/dl (32.0-36.5); MEAN CORPUSCULAR VOLUME 95.6 fl (80.0-96.0); RED BLOOD COUNT 3.61 10^6/uL (4.30-6.10); WHITE BLOOD COUNT 18.1 10^3/uL (4.0-10.0)
[2020-04-27 07:51] LABS: PLATELET COUNT, AUTOMATED 84 10^3/uL (150-450)
[2020-04-27 08:16] LABS: CALCIUM LEVEL 7.7 MG/DL (8.8-10.2); CREATININE FOR GFR 2.12 MG/DL (0.70-1.30); GLOMERULAR FILTRATION RATE 31.8 (>35); POTASSIUM SERUM 3.9 MEQ/L (3.5-5.1)
[2020-04-27] MEDS: TAMSULOSIN 0.4 MG CAP PO SCH (08:38)
[2020-04-27] MEDS: PANTOPRAZOLE 40MG TAB (PROTONIX) PO SCH (08:38)
[2020-04-27] MEDS: LOSARTAN 50MG TABLET PO SCH (08:40)
[2020-04-27] MEDS: ASPIRIN 81 MG ENTERIC TAB PO SCH (08:41)
[2020-04-27] MEDS: ENOXAPARIN 60MG/0.6ML SYRINGE (J1650 PER 10MG) SC SCH (08:41)
[2020-04-27] MEDS: FOLIC ACID 1 MG TAB PO SCH (08:42)
[2020-04-27] MEDS: dexameTHASONE 4 MG/ML 1ML VIAL (J1100 PER 1MG) IV SCH (08:42)
[2020-04-27 09:00] VITALS: BP 118/53
--- NOTE | 2020-04-27 11:45 | IPNPDOC ---
Text Note Date of Service The patient was seen on 04/27/20. NOTE Subjective: No any acute events overnight. Objective: GENERAL APPEARANCE: NAD HEENT: no scleral icterus, no JVD, EOMI CARDIOVASCULAR: S1S2 LUNGS: Diminished lung sounds bilaterally ABDOMEN: soft & not tender w palpitation MUSCULOSKELETAL: no cyanosis, no swelling INTEGUMENT: no generalized palor NEUROLOGICAL: cranial nerve function from 2-12 intact intact, follows commands, speech not dysarthric Pt is an 85 yr old w a hx of RA, CKD3, COPD, CAD/CABG, HTN, DLP & Class 1 obesity who was sent to the ER by his for evaluation of confusion and a fall and was found to have hypoxemia; he will be admitted for Encephalopathy likely 2/2 hypoxemia, acute COPD 2/2 COVID 19, sepsis. Metabolic encephalopathy Secondary to sepsis secondary to COVID 19 Improved Shortness of breath Most likely due to COVID 19 Chest x-ray showed Moderate left lower lobe infiltrate compatible with pneumonia. Sepsis Secondary to COVID 19 Patient has mild leukopenia which resolved I stopped Neupogen, no indication pro calcitonin pending. IV fluid COVID 19 Remdesevir started Continue steroids Inhalers Therapeutic anticoagulation BHARATH Secondary to dehydration due to sepsis IV fluid Rheumatoid arthritis Methotrexate DC Chronic CAD/CABG / PCI w stents / DLP/ Carotid artery disease Continue home cardioprotective medications Hypertension Blood pressure under control GERD PPI Obesity Complicated care VS,Yo, I+O VS, Fishbone, I+O Laboratory Tests 04/27/20 07:05 Vital Signs Date Time Temp Pulse Resp B/P (MAP) Pulse Ox O2 Delivery O2 Flow Rate FiO2 04/27/20 09:00 98.1 70 17 118/53 (74) 97 Nasal Cannula 2.0 I&O- Last 24 Hours up to 6 AM 04/27/20 06:00 Intake Total 650 ml Output Total 700 ml Balance -50 ml CHICHI DAWN DO Apr 27, 2020 11:44
[2020-04-27 16:00] VITALS: BP 117/58
[2020-04-27] MEDS: SODIUM CHLORIDE 0.9% INJ 10 ML SYR IV SCH (18:16)
[2020-04-27 20:00] VITALS: BP 110/53
[2020-04-27] MEDS: ATORVASTATIN 10 MG TAB PO SCH (22:45)
[2020-04-28] MEDS: COMBIVENT RESPIMAT 100-20MCG INHALER 4GM INH SCH ×4 (01:49→19:35)
[2020-04-28] MEDS: NS 1,000 ML IV SCH (02:10)
[2020-04-28] MEDS: PIPERACILLIN/TAZOBACTAM SOD 2.25 GM in D5W MINI-BAG PLUS 50 ML IV SCH ×3 (03:21→15:15)
[2020-04-28 04:00] VITALS: BP 138/63
[2020-04-28 08:00] VITALS: BP 175/75; O2SAT 98
[2020-04-28 09:28] LABS: HEMATOCRIT 35.4 % (42.0-52.0); HEMOGLOBIN 11.6 g/dl (13.5-17.5); MEAN CORPUSCULAR HEMOGLOBIN 31.1 pg (27.0-33.0); MEAN CORPUSCULAR HGB CONC 32.8 g/dl (32.0-36.5); MEAN CORPUSCULAR VOLUME 94.9 fl (80.0-96.0); PLATELET COUNT, AUTOMATED 136 10^3/uL (150-450); RED BLOOD COUNT 3.73 10^6/uL (4.30-6.10); WHITE BLOOD COUNT 24.6 10^3/uL (4.0-10.0)
[2020-04-28 09:45] LABS: CALCIUM LEVEL 7.7 MG/DL (8.8-10.2); CREATININE FOR GFR 2.05 MG/DL (0.70-1.30); GLOMERULAR FILTRATION RATE 33.1 (>35); POTASSIUM SERUM 3.7 MEQ/L (3.5-5.1)
[2020-04-28] MEDS: dexameTHASONE 4 MG/ML 1ML VIAL (J1100 PER 1MG) IV SCH (10:16)
[2020-04-28] MEDS: PANTOPRAZOLE 40MG TAB (PROTONIX) PO SCH (10:17)
[2020-04-28] MEDS: TAMSULOSIN 0.4 MG CAP PO SCH (10:17)
[2020-04-28] MEDS: FOLIC ACID 1 MG TAB PO SCH (10:17)
[2020-04-28] MEDS: ASPIRIN 81 MG ENTERIC TAB PO SCH (10:17)
[2020-04-28] MEDS: ENOXAPARIN 60MG/0.6ML SYRINGE (J1650 PER 10MG) SC SCH (10:18)
[2020-04-28 10:22] LABS: HEPATITIS B SURFACE ANTIGEN NEGATIVE (NEGATIVE)
[2020-04-28] MEDS: LOSARTAN 50MG TABLET PO SCH (10:22)
[2020-04-28 12:00] VITALS: BP 117/58; O2SAT 97
[2020-04-28 14:00] VITALS: BP 126/60
[2020-04-28 16:00] VITALS: O2SAT 97
[2020-04-28] MEDS: SODIUM CHLORIDE 0.9% INJ 10 ML SYR IV SCH (17:32)
--- NOTE | 2020-04-28 18:39 | IPNPDOC ---
Date Seen The patient was seen on 04/28/20. Progress Note SUBJECTIVE: Cristo was seen and examined this morning while lying in bed. He reports doing fairly well overall and had no adverse events overnight. He was weaned off the 2L NC supplemental O2 overnight and is tolerating this transition well, saturating at 98% on room air and denying any significant dyspnea. He reports some czqj-hu-[id number] fatigue overall, but offers no other complaints, denying chest pain, palpitations, fever, chills, abdominal pain, or n/v/d. OBJECTIVE PHYSICAL EXAMINATION: VITAL SIGNS: Please see below. GENERAL: Pleasant, elderly man lying in bed. No acute distress. Alert and oriented 3. HEENT: Noninjected, anicteric sclera. Wearing eyeglasses. CARDIOVASCULAR: Regular rate, regular rhythm. Normal S1, S2. No murmurs, rubs, or appreciated, but important to note difficult to accurately and thoroughly assess as exam limited by single-use stethoscope. RESPIRATORY: Diminished breath sounds bilaterally with decreased tidal volume, otherwise no significant adventitious breath sounds were appreciated. Speaking full sentences. Breathing room air. Symmetric chest expansion without use of accessory muscles. ABDOMINAL: Soft, nontender and nondistended with no rigidity appreciated. Normoactive bowel sounds throughout. NEUROLOGICAL: Awake, alert and oriented 3. No focal neurologic deficits appreciated. Non-dysarthric speech. PSYCHOLOGICAL: Mood and affect appear appropriate LABORATORY DATA, IMAGING STUDIES, MICROBIOLOGY: WBC 24.6 Hgb 11.6 PLT 136 sCr 2.05 Please see below for full results. ASSESSMENT AND PLAN: This is an 85yo male w/ notable h/o RA on methotrexate at home, CAD s/p CABG and stents, CKD IIIb, HTN, DLD who presented to the ED twice on the evening of 04/25/2020. First visit was due to confusion home and was concerned patient may be febrile, as that is cause confusion the past, but he was not febrile and not hypoxic. He was discharged home from the ED and then subsequently suffered a fall upon return to his home and then came back for second ED presentation. At the second presentation, he was found to be hypoxic with O2 saturations noted to be 86%. He was found to have pancytopenia in the setting of left lower lobe pne umonia secondary to COVID 19 virus as well as acute kidney injury superimposed on CKDIII. He was started on steroids, remdesivir, empiric antibiotic, and IV fluids. #Left lower lobe viral pneumonia secondary to COVID-19 viral infection -Patient was taken off nasal cannula supplementation overnight and has had nearly 24 hours of excellent saturations on room air -We will continue with the remdesivir and have decreased his daily dexamethasone to 2 mg, rather than the 6 mg he had been on, as he now has leukocytosis and we want to rule in/rule out WBC increase due to steroids -Goal is for patient to have one measured decrease in WBC and then ultimately be discharged/moved out of Covid only floor -Continue with lovenox and isolation/droplet precautions; ICS/anti-cholinergic inhaler prn; prn rescue inhaler -Due to two unremarkable pro-calcitonin measurements, as well as vast improvement on low white count, original her neutropenia antibiotic order has been discontinued #Leukocytosis -WBC 24.6, up from 18 yesterday -We have decreased his daily steroid dosing to assess if this is the main cause for his leukocytosis -Goal prior to discharge/move off Covid floor is for patient to have one measured decrease in WBC -Empiric antibiotic coverage that was started for neutropenia/pancytopenia on presentation has been discontinued as patient now has leukocytosis and has had 2 unremarkable pro-calcitonin measurements #Bicytopenia -Hgb 11.6 (improved from 11.2 yesterday); PLT 136 (improved from 84 yesterday) -Anemia is improving and is most likely secondary to acute inflammatory process in the setting of positive Covid 19 as well as chronic kidney disease -From a cytopenia is also likely improving and this appears to be chronic issue as patient has low platelet measurements dating back as far as 2013 -Both the anemia and chronic thrombocytopenia warrant appropriate workup as o utpatient -Vitamin B12 ordered to rule this out as possible contributor to decreased cell lines #BHARATH on CKD IIIb, improving -sCr 2.05, marking a second straight day of improvement -Patient is status post 4 days of IV fluids -Due to improving kidney function and toleration of diet, IV fluids were discontinued today #History of rheumatoid arthritis on methotrexate as outpatient -Patient's methotrexate was discontinued 2 days ago in the setting of his acute inflammatory viral process secondary to Covid 19 infection -His home folic acid supplementation will continue to be administered #CAD s/p CABG and stents -Home atorvastatin, aspirin 81, as needed nitroglycerin continued #HTN -Home losartan continued -Pressures today following losartan administration are normotensive #DLD -Continue with home atorvastatin -A1c has been ordered in the setting of obesity and history of dyslipidemia to screen for diabetes #GERD -Continue with Protonix #Obesity, BMI 32 -This is an issue that needs to be followed up on as an outpatient for further counseling and management. -A1c ordered to screen for diabetes in the setting of BMI of 32 #DVT prophylaxis: SC Lovenox Disposition: Pending improvement in leukocytosis and continued improvement in respiratory status/hypoxia VS, I&O, 24H, Fishbone Vital Signs/I&O Vital Signs Date Time Temp Pulse Resp B/P (MAP) Pulse Ox O2 Delivery O2 Flow Rate FiO2 04/28/20 12:00 96.8 58 21 117/58 (77) 100 Room Air 04/27/20 21:00 2.0 I&O- Last 24 Hours up to 6 AM 04/28/20 06:00 Intake Total 3800 ml Output Total 1690 ml Balance 2110 ml Laboratory Data 24H LABS Laboratory Tests 2 04/28/20 00:23: Bedside Glucose (Misc Panel) 109 04/28/20 09:09: Nucleated Red Blood Cells % (auto) 0.0, Anion Gap 12, Glomerular Filtration Rate 33.1L, Calcium Level 7.7L 04/28/20 13:29: Bedside Glucose (Misc Panel) 132H CBC/BMP Laboratory Tests 04/28/20 09:09 Microbiology Microbiology 04/26/20 Blood Culture - Preliminary, Resulted No Growth after 48 hours. All Specime... ROMY BROWN D.O. Apr 28, 2020 18:37
[2020-04-28 20:00] VITALS: BP 115/51; O2SAT 94
[2020-04-28] MEDS: ATORVASTATIN 10 MG TAB PO SCH (20:15)
[2020-04-29] VITALS: BP 128/61; O2SAT 97
[2020-04-29] MEDS: COMBIVENT RESPIMAT 100-20MCG INHALER 4GM INH SCH ×3 (02:00→12:59)
[2020-04-29 04:00] VITALS: BP 121/60; O2SAT 98
[2020-04-29 06:30] LABS: HEMATOCRIT 32.1 % (42.0-52.0); HEMOGLOBIN 10.4 g/dl (13.5-17.5); MEAN CORPUSCULAR HGB CONC 32.4 g/dl (32.0-36.5); MEAN CORPUSCULAR VOLUME 95.8 fl (80.0-96.0); PLATELET COUNT, AUTOMATED 130 10^3/uL (150-450); RED BLOOD COUNT 3.35 10^6/uL (4.30-6.10); WHITE BLOOD COUNT 14.7 10^3/uL (4.0-10.0)
[2020-04-29 06:48] LABS: CALCIUM LEVEL 7.5 MG/DL (8.8-10.2); CREATININE FOR GFR 1.78 MG/DL (0.70-1.30); POTASSIUM SERUM 3.9 MEQ/L (3.5-5.1)
[2020-04-29 07:01] LABS: HEMOGLOBIN A1c 5.4 %
[2020-04-29 08:00] VITALS: BP 126/60; O2SAT 100
[2020-04-29] MEDS: PANTOPRAZOLE 40MG TAB (PROTONIX) PO SCH (08:56)
[2020-04-29] MEDS: TAMSULOSIN 0.4 MG CAP PO SCH (08:56)
[2020-04-29] MEDS: ASPIRIN 81 MG ENTERIC TAB PO SCH (08:56)
[2020-04-29] MEDS: FOLIC ACID 1 MG TAB PO SCH (08:56)
[2020-04-29] MEDS: ENOXAPARIN 60MG/0.6ML SYRINGE (J1650 PER 10MG) SC SCH (08:57)
[2020-04-29 08:58] VITALS: BP 96/46
[2020-04-29] MEDS: LOSARTAN 50MG TABLET PO SCH (08:58)
[2020-04-29] MEDS ORDERED: dexameTHASONE 4 MG/ML 1ML VIAL (J1100 PER 1MG) IV SCH (09:00)
[2020-04-29 12:00] VITALS: BP 103/57; O2SAT 99
[2020-04-29] MEDS ORDERED: DEXA1TA PO (13:11)
[2020-04-29 16:00] VITALS: O2SAT 98
[2020-04-30] MEDS ORDERED: METHOTREXATE 2.5 MG TAB (J8610 PER 2.5MG) PO SCH (09:00)
[2020-04-30 18:07] LABS: MYCOPLASMA PNEUMONIAE IgG 160 U/mL (0-99); MYCOPLASMA PNEUMONIAE IgM <770 U/mL (0-769)
--- NOTE | 2020-04-30 18:40 | DS.PDOC ---
Discharge Summary General Date of Admission Apr 25, 2020 at 23:43 Date of Discharge Wednesday, April 29, 2020 Attending Physician: GEETA OQUENDO MD Discharge Summary PROCEDURES PERFORMED DURING STAY: None ADMITTING DIAGNOSES: Encephalopathy, likely secondary to hypoxemia Acute hypoxic respiratory failure secondary to Covid 19 pneumonia Sepsis secondary to Covid 19 pneumonia Acute kidney injury on chronic kidney disease stage IIIB GERD Dyslipidemia Hypertension Coronary artery disease status post CABG and stents History of rheumatoid arthritis on methotrexate as outpatient Obesity, BMI 32 DISCHARGE DIAGNOSES: Acute hypoxic respiratory failure secondary to Covid 19 pneumonia, resolved Left lower lobe viral pneumonia secondary to Covid 19 viral infection Acute kidney injury on chronic kidney disease, stage IIIB, improved History of rheumatoid arthritis on methotrexate as outpatient CAD status post CABG and stents Hypertension Dyslipidemia GERD Obesity, BMI 32 COMPLICATIONS/CHIEF COMPLAINT: Covid 19, Neutropenic Fever. HISTORY OF PRESENT ILLNESS: Cristo is an 85-year-old male with notable history of rheumatoid arthritis on methotrexate at home, chronic kidney disease, stage IIIB, coronary artery disease status post CABG and stents, dyslipidemia, hypertension, GERD, and a positive Covid 19, test results on 04/19, who presented to the ED twice on the evening of 04/25/2020. His had him brought in for the first presentation because he was described as being confused at home and she was concerned that he may be febrile, as he has a history of acting confused when he is experiencing a fever. When he was in the ED, he was found not to be febrile, nor hypoxic and was subsequently discharged home. When he returned home, he suffered a fall and EMS was called again and he was subsequently brought back to ED for second presentation, at which point he was found to be hypoxic with oxygen saturations noted to be 86%. In addition, he was found to have pancytopenia in the setting of left lower lobe viral pneumonia secondary to Covid 19 virus, as well as acute kidney injury. Imaging in the ED did not show any acute injuries associated with his fall at home. HOSPITAL COURSE: Upon admission, patient was placed on nasal cannula supplemental oxygen and given dexamethasone as well as remdesivir. His home methotrexate was stopped due to the associated immunocompromised effects of the medication. His presenting leukopenia quickly soon became leukocytosis and was thought to be secondary to the IV steroids. When we decreased daily, dexamethasone dose, his white count resolved. On the overnight of 04/27 and 04/28, he was taken off nasal cannula and began breathing on room air. He had nearly 36 hours of good saturations on room air. His acute renal failure steadily improved day by day after he was given 4 days of IV fluids. The IV fluids were subsequently stopped when he was tolerating an oral diet and have improvement in his serum creatinine. He was nearly ready for discharge on 04/28, but it was important to see his white count come down, and once it did on 04/29 he was okay for discharge. What was initially thought to be thrombocytopenia from Covid 19. Upon presentation, was likely a chronic issue as review of records showed that dating back to 2013 he has had decreased platelet counts. Upon discharge, he was informed to wait 2 more days before resuming his home methotrexate and to take 1 mg of dexamethasone for 3 days for continued anti- inflammatory effects. DISCHARGE MEDICATIONS: Please see below. ALLERGIES: Please see below. PHYSICAL EXAMINATION ON DISCHARGE: VITAL SIGNS: Please see below. GENERAL: Pleasant, elderly man lying in bed. No acute distress. Alert and oriented 3. HEENT: Noninjected, anicteric sclera. Wearing eyeglasses. CARDIOVASCULAR: Regular rate, regular rhythm. Normal S1, S2. No murmurs, rubs, or appreciated, but important to note difficult to accurately and thoroughly assess as exam limited by single-use stethoscope. RESPIRATORY: Diminished breath sounds bilaterally with decreased tidal volume, otherwise no significant adventitious breath sounds were appreciated. Speaking full sentences. Breathing room air. Symmetric chest expansion without use of accessory muscles. ABDOMINAL: Soft, nontender and nondistended with no rigidity appreciated. Normoactive bowel sounds throughout. NEUROLOGICAL: Awake, alert and oriented 3. No focal neurologic deficits appreciated. Non-dysarthric speech. PSYCHOLOGICAL: Mood and affect appear appropriate IMAGING: Chest x-ray, 04/26/20 FINDINGS: The mediastinum and cardiac silhouette are stable and within normal limits for portable technique. Evidence for prior sternotomy and CABG again noted. Examination now demonstrates a newly visible left lower lobe infiltrate compatible with pneumonia. No effusion. No pneumothorax. IMPRESSION: Moderate left lower lobe infiltrate compatible with pneumonia. Cervical spine CT, 04/25/20 FINDINGS: Bones/joints: Grade 1 anterolisthesis at C4-C5. Otherwise normal alignment. No acute fracture. Discs/Spinal canal/Neural foramina: Discogenic degenerative changes in the cervical spine. No spinal stenosis. Multilevel facet DJD with neural foraminal stenoses. Lungs: Lung apices are normal. Soft tissues: Unremarkable. IMPRESSION: 1. No fracture. 2. Advanced degenerative spondylosis as above. Head CT, 04/25/20 FINDINGS: Brain: There is mild cerebral atrophy. Changes of chronic white matter microvascular disease are present. No signs of a recent infarction or hemorrhage. Cerebral ventricles: No ventriculomegaly. Bones/joints: Unremarkable. No acute fracture. Paranasal sinuses: Mucosal thickening in the paranasal sinuses. Mastoid air cells: Small right mastoid effusion. Soft tissues: Unremarkable. IMPRESSION: 1. Atrophy and chronic white matter changes. No acute intracranial abnormality. 2. Chronic sinusitis. PROGNOSIS: Good ACTIVITY: As tolerated DIET: 2 g sodium and low cholesterol diet DISPOSITION: Home Health Service. DISCHARGE INSTRUCTIONS & ITEMS TO FOLLOWUP ON ON OUTPATIENT: F/U nahun Carrion NP AT 1100AM on May. at [facility], [address] [place] [address] -Do not take home methotrexate medicine for two more days (04/30 and 05/01) upon discharge, then resume regular administration. -Take 1 mg dexamethasone tablet daily for the next 3 days starting 04/30/2020. -Return to ED/seek immediate medical care should presenting symptoms return and/or acutely worsen. DISCHARGE CONDITION: Stable TIME SPENT ON DISCHARGE: 36 minutes Vital Signs/I&Os Vital Signs Date Time Temp Pulse Resp B/P (MAP) Pulse Ox O2 Delivery O2 Flow Rate FiO2 04/29/20 16:00 98 Room Air 04/29/20 12:00 97.0 57 18 103/57 (72) 04/27/20 21:00 2.0 I&O- Last 24 Hours up to 6 AM 04/30/20 06:00 Intake Total 540 ml Output Total 200 ml Balance 340 ml Microbiology Microbiology 04/26/20 Blood Culture - Preliminary, Resulted No Growth after 72 hours. All specime... Discharge Medications Scheduled Aspirin (Aspirin EC) 325 Mg Tabec, 325 MG PO DAILY, (Reported) Atorvastatin Calcium (Lipitor) 10 Mg Tab, 10 MG PO QHS, (Reported) Dexamethasone (Dexamethasone) 1 Mg Tablet, 1 MG PO DAILY Folic Acid (Folic Acid) 1 Mg Tablet, 1 MG PO DAILY, (Reported) Losartan Potassium (Losartan Potassium) 50 Mg Tablet, 50 MG PO DAILY, (Reported) Methotrexate Sodium (Methotrexate) 2.5 Mg Tablet, 20 MG PO QWEEK, (Reported) TUESDAY Multivitamins (Thera M Plus Tablet) 1 Tab Tab, 1 TAB PO QHS, (Reported) Omeprazole (Omeprazole) 20 Mg Capsule.dr, 20 MG PO DAILY, (Reported) Tamsulosin HCl (Flomax) 0.4 Mg Capsule, 0.4 MG PO DAILY, (Reported) Ubidecarenone (Co Q-10) 200 Mg Cap, 200 MG PO DAILY, (Reported) Scheduled PRN Melatonin (Melatonin) 5 Mg Capsule, 5 MG PO QPM PRN for SLEEP, (Reported) Nitroglycerin (Nitrostat) 0.4 Mg Subl, 0.4 MG SL NITRO PRN for CHEST PAIN, (Reported) Allergies Coded Allergies: No Known Allergies (Verified , 01/01/19) ROMY BROWN D.O. Apr 30, 2020 18:40
== END 2020-04-29 16:15 | disposition home health service (06) | DRG 871 ==
LOC: M ED 22:33 → M ED INP 23:43 → M 4MAIN 04-26 14:13
PROVIDERS: ADMIT Internal Medicine; ATTEND Internal Medicine
DX: A41.9 Sepsis, unspecified organism (principal); U07.1 COVID-19; J12.89 Other viral pneumonia; G93.41 Metabolic encephalopathy; N17.9 Acute kidney failure, unspecified; D69.6 Thrombocytopenia, unspecified; I12.9 Hypertensive chronic kidney disease with stage 1 through stage 4 chronic kidney disease, or unspecified chronic kidney disease; N18.30 Chronic kidney disease, stage 3 unspecified; Z95.1 Presence of aortocoronary bypass graft; Z87.891 Personal history of nicotine dependence; J44.9 Chronic obstructive pulmonary disease, unspecified; K21.9 Gastro-esophageal reflux disease without esophagitis; E66.9 Obesity, unspecified; M06.9 Rheumatoid arthritis, unspecified; E83.42 Hypomagnesemia; Z79.899 Other long term (current) drug therapy; Z68.32 Body mass index [BMI] 32.0-32.9, adult

== ENCOUNTER → 2020-05-20 | Outpatient (CLI) | payer MEDICARE ==
[~2020-05-20] MED LIST changes: +DEXA1TA PO
[2020-05-20 12:56] LABS: BASO # 0.1 10^3/uL (0.0-0.2); BASO % 0.8 % (0.0-1.0); EOS # 0.5 10^3/uL (0.0-0.5); EOS % 8.2 % (0.0-3.0); HEMATOCRIT 37.2 % (42.0-52.0); HEMOGLOBIN 12.1 g/dl (13.5-17.5); LYMPH # 2.5 10^3/uL (1.5-5.0); LYMPH % 40.8 % (24.0-44.0); MEAN CORPUSCULAR HEMOGLOBIN 31.3 pg (27.0-33.0); MEAN CORPUSCULAR HGB CONC 32.5 g/dl (32.0-36.5); MEAN CORPUSCULAR VOLUME 96.1 fl (80.0-96.0); MONO # 0.7 10^3/uL (0.0-0.8); MONO % 11.6 % (0.0-5.0); NEUTROPHILS # 2.4 10^3/uL (1.5-8.5); NEUTROPHILS % 38.3 % (36.0-66.0); PLATELET COUNT, AUTOMATED 117 10^3/uL (150-450); RED BLOOD COUNT 3.87 10^6/uL (4.30-6.10); WHITE BLOOD COUNT 6.2 10^3/uL (4.0-10.0)
[2020-05-20 13:17] LABS: ERYTHROCYTE SEDIMENTATION RATE 19 mm/hr (0-20)
[2020-05-20 13:32] LABS: ALBUMIN 3.3 GM/DL (3.2-5.2); BILIRUBIN,TOTAL 0.3 MG/DL (0.2-1.0); C REACTIVE PROTEIN QUANTITATIV 0.3 MG/DL (0.00-0.30); CALCIUM LEVEL 9.4 MG/DL (8.8-10.2); CREATININE FOR GFR 1.94 MG/DL (0.70-1.30); GLOMERULAR FILTRATION RATE 35.3 (>35); POTASSIUM SERUM 4.2 MEQ/L (3.5-5.1)
== END ==
LOC: M LAB 11:50
PROVIDERS: ATTEND Internal Medicine Rheumatology
DX: M05.79 Rheumatoid arthritis with rheumatoid factor of multiple sites without organ or systems involvement (principal); Z79.899 Other long term (current) drug therapy

== ENCOUNTER → 2020-09-01 | Outpatient (REF) | payer MEDICARE ==
[~2020-09-01] MED LIST changes: +FOLI0.8T3 PO; -FOLI800T PO
[2020-09-01 15:51] LABS: ALBUMIN 3.9 GM/DL (3.2-5.2); BILIRUBIN,TOTAL 0.6 MG/DL (0.2-1.0); CALCIUM LEVEL 9.7 MG/DL (8.8-10.2); CREATININE FOR GFR 1.86 MG/DL (0.70-1.30); MAGNESIUM LEVEL 2.2 MG/DL (1.8-2.4); POTASSIUM SERUM 4.6 MEQ/L (3.5-5.1); PTH INTACT 68.9 PG/ML (18.5-88.0); TOTAL PROTEIN 7.3 GM/DL (6.4-8.2)
== END ==
LOC: M PLALAB 09:50
PROVIDERS: ATTEND Internal Medicine
DX: I12.9 Hypertensive chronic kidney disease with stage 1 through stage 4 chronic kidney disease, or unspecified chronic kidney disease (principal); N18.30 Chronic kidney disease, stage 3 unspecified

== ENCOUNTER → 2020-09-09 | Outpatient (CLI) | payer MEDICARE ==
--- NOTE | 2020-09-09 11:28 | REPPI ---
INDICATION: HX OF PNEUMONIA COMPARISON: 04/26/2020 as well as other prior exams. TECHNIQUE: PA/Lateral FINDINGS: Previously noted infiltrate in the left lung base appears to have completely resolved. There is pleural and parenchymal scarring in both lung bases unchanged. The heart is not significantly enlarged. Multiple sternal wires and mediastinal clips are present. The mediastinal silhouette is unchanged. Metallic clips are seen in the right upper quadrant of the abdomen. There is diffuse osteopenia. IMPRESSION: No acute pulmonary disease. Bibasilar scarring. Previously noted infiltrate in the left lung base has resolved. <Electronically signed by Evgeny Barry > 09/09/20 [id number]
== END ==
LOC: M PLAIMG 09:29
PROVIDERS: ATTEND Internal Medicine
DX: M85.88 Other specified disorders of bone density and structure, other site (principal); Z87.01 Personal history of pneumonia (recurrent)
CPT/HCPCS: 71046; G0463

== ENCOUNTER → 2020-09-22 | Outpatient (CLI) | payer MEDICARE ==
--- NOTE | 2020-09-22 10:29 | REP ---
INDICATION: RENAL CYST COMPARISON: MRI dated 04/04/2000 TECHNIQUE: Real time doran scale ultrasound examination using curved array transducer. FINDINGS: Right kidney measures 8.9 x 4.9 x 4.6 cm without hydronephrosis. Left kidney measures 11.2 x 4.7 x 4.4 cm without hydronephrosis. Bilateral renal hypodensities likely representing simple and complex cysts are identified measuring up to 2.3 cm in the midpole right kidney and 2.4 cm in the peripelvic left kidney. No obvious mass. IMPRESSION: Bilateral simple and complex cysts are suggested. Consider pre and postcontrast CT of the abdomen to confirm findings and definitively exclude possible renal mass. <Electronically signed by Braeden Hanna > 09/22/20 [id number]
== END ==
LOC: M RAD 09:45
PROVIDERS: ATTEND Internal Medicine
DX: N28.1 Cyst of kidney, acquired (principal)

== ENCOUNTER → 2020-12-24 | Outpatient (CLI) | payer MEDICARE ==
[~2020-12-24] MED LIST changes: -DOXY100C37 PO; +DOXY1CAP62 PO; +LEUC5TA PO; -PREV15CA18 PO; +PREV15CA24 PO; +PROAAER10 INH; +RESTFUL LEGS SL; +SPIR1CAP INH
[2020-12-24 15:30] LABS: HEMATOCRIT 22.1 % (42.0-52.0); HEMOGLOBIN 7.7 g/dl (13.5-17.5); MEAN CORPUSCULAR HEMOGLOBIN 34.8 pg (27.0-33.0); MEAN CORPUSCULAR HGB CONC 34.8 g/dl (32.0-36.5); RED BLOOD COUNT 2.21 10^6/uL (4.30-6.10); WHITE BLOOD COUNT 1.7 10^3/uL (4.0-10.0)
[2020-12-24 15:57] LABS: CALCIUM LEVEL 8.6 MG/DL (8.8-10.2); CREATININE FOR GFR 1.98 MG/DL (0.70-1.30); GLOMERULAR FILTRATION RATE 34.5 (>35)
[2020-12-24 16:47] LABS: PLATELET COUNT, AUTOMATED 87 10^3/uL (150-450)
== END ==
LOC: M LAB 14:50
PROVIDERS: ATTEND Physician Assistant
DX: I95.9 Hypotension, unspecified (principal)

== ENCOUNTER 2020-12-25 11:18 | Inpatient (IN) | payer MEDICARE ==
[~2020-12-25] VITALS: Ht 167.6 cm; Wt 89.7 kg
[2020-12-25] VITALS (9 sets, daily range): BP systolic 121–150; BP diastolic 60–89
[~2020-12-25 11:18] MED LIST changes: -LEUC5TA PO; -PROAAER10 INH; -RESTFUL LEGS SL; -SPIR1CAP INH
[2020-12-25 13:22] LABS: HEMATOCRIT 21.1 % (42.0-52.0); HEMOGLOBIN 7.4 g/dl (13.5-17.5); MEAN CORPUSCULAR HEMOGLOBIN 34.9 pg (27.0-33.0); MEAN CORPUSCULAR HGB CONC 35.1 g/dl (32.0-36.5); MEAN CORPUSCULAR VOLUME 99.5 fl (80.0-96.0); RED BLOOD COUNT 2.12 10^6/uL (4.30-6.10)
[2020-12-25 13:27] LABS: PLATELET COUNT, AUTOMATED 78 10^3/uL (150-450)
[2020-12-25 13:34] LABS: RSV AMPLIFICATION NEGATIVE (NEGATIVE)
[2020-12-25 13:35] LABS: BLOOD UREA NITROGEN 31 MG/DL (7-18); CALCIUM LEVEL 8.8 MG/DL (8.8-10.2); CARBON DIOXIDE LEVEL 22 MEQ/L (21-32); CHLORIDE LEVEL 113 MEQ/L (98-107); GLOMERULAR FILTRATION RATE 34.1 (>35); GLUCOSE, FASTING 112 MG/DL (70-100); SODIUM LEVEL 139 MEQ/L (136-145)
[2020-12-25 13:36] LABS: ALBUMIN 3.2 GM/DL (3.2-5.2); ALT/SGPT 22 U/L (12-78); BILIRUBIN,DIRECT 0.2 MG/DL (0.0-0.2); BILIRUBIN,TOTAL 0.5 MG/DL (0.2-1.0); CK-MB VALUE MASS < 1.0 NG/ML (<3.6); CPK CREATINE PHOSPHOKINASE 23 U/L (39-308); MB/CK RELATIVE INDEX 4.35 (< OR =4); NT-PRO BNP 570 PG/ML (<450); TOTAL PROTEIN 6.5 GM/DL (6.4-8.2); TROPONIN I < 0.02 NG/ML (< 0.10)
--- NOTE | 2020-12-25 13:49 | REP ---
INDICATION: DYSPNEA/COUGH COMPARISON: 09/09/2020 TECHNIQUE: Portable AP view of the chest FINDINGS: The mediastinum and cardiac silhouette are stable and again demonstrate prior sternotomy and CABG. The lung helms are limited due to poor inspiratory effort and underpenetration. No obvious focal consolidation, effusion, or pneumothorax. Chronic changes are suggested. Skeletal structures are stable. IMPRESSION: Chronic appearing changes. Limited examination due to poor inspiratory effort. No focal consolidation or effusion. <Electronically signed by Braeden Hanna > 12/25/20 [id number]
[2020-12-25 14:22] LABS: ATYPICAL LYMPH 1 % (0-5); BASOPHILS 1 % (0-1); EOSINOPHILS 5 % (0-3); LYMPHOCYTES 34 % (16-44); MONOCYTES 9 % (0-5); NEUTROPHILS 50 % (28-66); OVALOCYTES 2+; PLATELET ESTIMATE DECREASED (NORMAL)
[2020-12-25] MEDS ORDERED: SPIR1CAP INH (15:15)
[2020-12-25] MEDS ORDERED: RESTFUL LEGS SL (15:15)
[2020-12-25] MEDS ORDERED: PROAAER10 INH (15:15)
[2020-12-25] MEDS ORDERED: MAGN64TASA PO (15:15)
[2020-12-25] MEDS ORDERED: INFL10VL IV (15:17)
[2020-12-25] MEDS ORDERED: HOME MED LIST COMPLETE! XX SCH (15:20)
[2020-12-25] MEDS ORDERED: ALBUTEROL 90 MCG/ACT 8GM HFA INHALER INH PRN (15:35)
[2020-12-25] MEDS ORDERED: NITROGLYCERIN 0.4 MG SUBL TABLET SL PRN (15:35)
[2020-12-25] MEDS ORDERED: RAMELTEON 8 MG TAB (ROZEREM) PO PRN (15:35)
[2020-12-25] MEDS ORDERED: PILL CUTTER 1 EACH XX PRN (16:05)
[2020-12-25 17:06] LABS: PERCENT SATURATION 27.1 % (19.7-50.0)
--- NOTE | 2020-12-25 17:47 | HPEPDOC ---
General Date of Admission Dec 25, 2020 at 15:00 Date of Service: Dec 25, 2020 Chief Complaint The patient is a 85-year-old male admitted with a reason for visit of Anemia,Weakness. Source: Patient, RN/MD History of Present Illness Mr. Weldon is an 85-year-old male with coronary artery disease status post CABG and rheumatoid arthritis who presents with exertional dyspnea and weakness and found to have acute anemia. Patient denies any new medications. Most recent medication change is the discontinuation of losartan due to blood pressure. Otherwise he is on full dose aspirin. For the past week, he suddenly started to feel lightheaded and dizzy with exertional dyspnea. He denies any melena, hematochezia, hematuria, or hemoptysis. 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 Instructed the patient to go to the ED for evaluation today. While in the ED, he was found to have pancytopenia. Hemoglobin dropped to 7.4. Otherwise, vital signs stable. Patient reported fatigue, lightheadedness, and exertional dyspnea. Denies any chest pain, abdominal pain, diarrhea, or dysuria. Patient has had blood transfusions in the past, but only after surgeries. He signed consent for blood. Patient will be admitted for acute anemia. Due to patient's pancytopenia, I reached out to oncology, Dr. Thomas. He suspects that patient's pancytopenia is from methotrexate. Some patients are slow metabolizer's of methotrexate and he may have higher levels of methotrexate. Recommending folinic acid (leucovorin). Home Medications Scheduled Aspirin (Aspirin EC) 325 Mg Tabec, 325 MG PO DAILY, (Reported) Atorvastatin Calcium (Lipitor) 10 Mg Tab, 5 MG PO QHS, (Reported) Folic Acid (Folic Acid) 1 Mg Tablet, 1 MG PO DAILY, (Reported) Infliximab Injection (Remicade) 100 Mg Vial, 100 MG IV ASDIRECTED, (Reported) EVERY 7 WEEKS Losartan Potassium (Losartan Potassium) 50 Mg Tablet, 50 MG PO DAILY, (Reported) Magnesium Chloride (Mag64) 64 Mg Tablet.dr, 64 MG PO QHS, (Reported) Methotrexate Sodium (Methotrexate) 2.5 Mg Tablet, 20 MG PO QWEEK, (Reported) TUESDAY Multivitamins (Thera M Plus Tablet) 1 Tab Tab, 1 TAB PO QHS, (Reported) Omeprazole (Omeprazole) 20 Mg Capsule.dr, 20 MG PO DAILY, (Reported) Tamsulosin HCl (Flomax) 0.4 Mg Capsule, 0.4 MG PO QHS, (Reported) Tiotropium [place] (Spiriva) 18 Mcg Cap.w.dev, 18 MCG INH DAILY, (Reported) Ubidecarenone (Co Q-10) 200 Mg Cap, 200 MG PO QHS, (Reported) Scheduled PRN Albuterol Sulfate (Proair Hfa) 8.5 Gm Hfa.aer.ad, 2 PUFF INH Q4H PRN for SHORTNESS OF BREATH, (Reported) Melatonin (Melatonin) 5 Mg Capsule, 5 MG PO QHS PRN for INSOMNIA, (Reported) Nitroglycerin (Nitrostat) 0.4 Mg Subl, 0.4 MG SL NITRO PRN for CHEST PAIN, (Reported) [Restful Legs] , 1 TAB SL QHS PRN for RESTLESS LEGS, (Reported) Allergies Coded Allergies: No Known Allergies (Verified , 01/01/19) Past Medical History Medical History 1. Essential hypertension 2. Hypercholesterolemia 3. CAD 4. CKD stage III 5. Carotid artery disease 6. Rheumatoid arthritis of the left knee 7. Prostatic hypertrophy Surgical History 1. Appendectomy 2. Left inguinal hernia repair 3. Right knee arthroscopy 4. CABG 5. Cholecystectomy 6. Tympanoplasty's 7. Right knee arthroscopy 8. Left knee arthroscopy 9. Repeat CABG 10. Right and left cataract extraction 11. Total left knee Family History Father: at the age of 35 from bleeding ulcer Mother: History of CAD Social History * Smoker: former Smoker Alcohol: rarely Drugs: denies A-FIB/CHADSVASC A-FIB History Current/History of A-Fib/PAF?: No Review of Systems Constitutional: Denies: Chills, Fever Eyes: Denies: Vision change ENT: Denies: Sore Throat Skin: Denies: Rash Pulmonary: Reports: Other Symptoms (Exertional dyspnea) Cardiovascular: Reports: Lt Headedness; Denies: Chest Pain Gastrointestinal: Reports: Constipation; Denies: Nausea, Abdominal Pain, Diarrhea Genitourinary: Denies: Dysuria Hematologic: Denies: Bruising Neurological: Denies: Numbness Psych: Denies: Anxiety, Depression Physical Examination General Exam: Positive: Alert, Cooperative Eye Exam: Positive: EOMI; Negative: Sclera icteric ENT Exam: Positive: Atraumatic Neck Exam: Positive: Supple Chest Exam: Positive: Clear to auscultation Heart Exam: Positive: Rate Normal, Regular Rhythm Abdomen Exam: Positive: Normal bowel sounds, Soft; Negative: Tenderness Extremity Exam: Negative: Edema Neuro Exam: Positive: Normal Speech, Cranial Nerves 3-12 NL Psych Exam: Positive: Mental status NL, Mood NL Vital Signs Vital Signs Date Time Temp Pulse Resp B/P (MAP) Pulse Ox O2 Delivery O2 Flow Rate FiO2 12/25/20 16:15 67 18 96 Room Air 12/25/20 16:01 143/65 (91) 12/25/20 15:40 97.6 Laboratory Data Labs 24H Laboratory Tests 2 12/25/20 12:40: Neutrophils (%) (Auto) , Neutrophils # (Auto) , Nucleated Red Blood Cells % (auto) 1.0H, Neutrophils 50, Lymphocytes (Manual) 34, Monocytes (Manual) 9H, Eosinophils (Manual) 5H, Basophils (Manual) 1, Atypical Lymphocytes 1, Macrocytosis 1+, Ovalocytes 2+, Platelet Estimate DECREASED, Anion Gap 4L, Glomerular Filtration Rate 34.1L, Calcium Level 8.8, Total Bilirubin 0.5, Direct Bilirubin 0.2, Aspartate Amino Transf (AST/SGOT) 13, Alanine Aminotransferase (ALT/SGPT) 22, Alkaline Phosphatase 60, Total Creatine Kinase 23L, Creatine Kinase MB < 1.0, Creatine Kinase MB Relative Index 4.35H, Troponin I < 0.02, UJ-Ygd-P-Type Natriuretic Peptide 570H, Total Protein 6.5, Albumin 3.2, Albumin/Globulin Ratio 1.0, Thyroid Stimulating Hormone (TSH) 1.410 12/25/20 12:41: Coronavirus (COVID-19)(PCR) NEGATIVE, Influenza Type A (RT-PCR) NEGATIVE, Influenza Type B (RT-PCR) NEGATIVE, Respiratory Syncytial Virus (PCR) NEGATIVE CBC/BMP Laboratory Tests 12/25/20 12:40 Assessment/Plan Mr. Weldon is an 85-year-old male with coronary artery disease status post CABG and rheumatoid arthritis who presents with exertional dyspnea and weakness and found to have acute anemia. It was noted that he had pancytopenia. Reached out to oncology, who suspects methotrexate as a cause. Some patients are slow metabolizer of methotrexate. Recommending folinic acid (leucovorin). Patient will be given 2 units of packed red blood cells and folinic acid (leucovorin). Plan / VTE VTE Prophylaxis Ordered?: Yes Plan Plan 1. Symptomatic anemia and pancytopenia Discussed case with oncology, suspect methotrexate as a cause as some patients are slow metabolizer of methotrexate Recommending folinic acid (leucovorin). Will start patient on folic acid Transfused 2 units of blood Monitor H&H 2. Rheumatoid arthritis Patient on infliximab and methotrexate outpatient Due to patient's pancytopenia, will hold methotrexate Patient will need to follow-up with rheumatology outpatient 3. CAD status post CABG Stable, no acute chest pain Continue full dose aspirin and atorvastatin Patient tells me that he is not on losartan 4. COPD Stable. Patient is not in exacerbation Continue Spiriva 5. BPH Continue tamsulosin 6. DVT prophylaxis Due to anemia, will hold off on chemical prophylaxis SCDs and teds Disposition: Pending stability of H&H DICK CURRAN DO Dec 25, 2020 17:45
--- NOTE | 2020-12-25 19:02 | ECGEPIP ---
[facility] - ED Test Date: 2020-12-25 Pat Name: KIM BRAXTON Department: Room: [place] [address] Gender: Male Chief Orthoptist: JOSESITO : 1935 Requested By: ROBERT AYERS Order Number: [id number] Reading MD: Irma Craft Measurements Intervals Carver Rate: 65 P: 33 AR: 194 QRS: -22 QRSD: 96 T: 70 QT: 404 QTc: 420 Interpretive Statements Normal sinus rhythm Minimal voltage criteria for LVH, may be normal variant ( R in aVL ) NSTTW abnormalities prwp decreased rate 04/25/20 Electronically Signed on 12-25-2020 19:02:27 EDT by Irma Craft
[2020-12-25 20:02] LABS: HEMATOCRIT 27.1 % (42.0-52.0); MEAN CORPUSCULAR HEMOGLOBIN 34.2 pg (27.0-33.0); MEAN CORPUSCULAR HGB CONC 35.4 g/dl (32.0-36.5); MEAN CORPUSCULAR VOLUME 96.4 fl (80.0-96.0); RED BLOOD COUNT 2.81 10^6/uL (4.30-6.10); WHITE BLOOD COUNT 2.3 10^3/uL (4.0-10.0)
[2020-12-25 20:06] LABS: HEMOGLOBIN 9.6 g/dl (13.5-17.5); PLATELET COUNT, AUTOMATED 71 10^3/uL (150-450)
[2020-12-25] MEDS ORDERED: MULTIVITAMINS/MINERALS THERAP 1 TAB PO SCH (21:00)
[2020-12-25] MEDS ORDERED: ATORVASTATIN 10 MG TAB PO SCH (21:00)
[2020-12-25] MEDS ORDERED: TAMSULOSIN 0.4 MG CAP PO SCH (21:00)
[2020-12-25] MEDS ORDERED: LEUCOVORIN 5 MG TAB PO ONE (22:00)
[2020-12-26] MEDS: LEUCOVORIN 5 MG TAB PO SCH ×2 (05:34→12:52)
[2020-12-26 06:00] VITALS: BP 138/63
[2020-12-26 06:24] LABS: HEMATOCRIT 25.9 % (42.0-52.0); MEAN CORPUSCULAR HEMOGLOBIN 33.2 pg (27.0-33.0); MEAN CORPUSCULAR HGB CONC 34.7 g/dl (32.0-36.5); MEAN CORPUSCULAR VOLUME 95.6 fl (80.0-96.0); RED BLOOD COUNT 2.71 10^6/uL (4.30-6.10); WHITE BLOOD COUNT 2.5 10^3/uL (4.0-10.0)
[2020-12-26 06:25] LABS: PLATELET COUNT, AUTOMATED 67 10^3/uL (150-450)
[2020-12-26 06:51] LABS: CALCIUM LEVEL 8.2 MG/DL (8.8-10.2); CREATININE FOR GFR 1.96 MG/DL (0.70-1.30); GLOMERULAR FILTRATION RATE 34.9 (>35); POTASSIUM SERUM 4.1 MEQ/L (3.5-5.1)
[2020-12-26] MEDS ORDERED: LEUC5TA PO (07:36)
[2020-12-26] MEDS ORDERED: TIOTROPIUM INHALER/CAPSULE (SPIRIVA) INH SCH (08:00)
[2020-12-26] MEDS ORDERED: ASPIRIN ENTERIC 325 MG TAB PO SCH (09:00)
[2020-12-26] MEDS ORDERED: FOLIC ACID 1 MG TAB PO SCH (09:00)
[2020-12-26] MEDS ORDERED: OMEPRAZOLE 20 MG CAP PO SCH (09:00)
[2020-12-26 13:06] LABS: HEMOGLOBIN 9.3 g/dl (13.5-17.5); MEAN CORPUSCULAR HEMOGLOBIN 33.3 pg (27.0-33.0); MEAN CORPUSCULAR HGB CONC 34.4 g/dl (32.0-36.5); MEAN CORPUSCULAR VOLUME 96.8 fl (80.0-96.0); RED BLOOD COUNT 2.79 10^6/uL (4.30-6.10); WHITE BLOOD COUNT 2.5 10^3/uL (4.0-10.0)
[2020-12-26 13:09] LABS: PLATELET COUNT, AUTOMATED 68 10^3/uL (150-450)
--- NOTE | 2020-12-26 23:50 | DS.PDOC ---
Discharge Summary General Date of Admission Dec 25, 2020 at 15:00 Date of Discharge Dec 26, 2020 Discharge Summary PROCEDURES PERFORMED DURING STAY: None ADMITTING DIAGNOSES: 1. Symptomatic anemia 2. Drug induced pancytopenia 3. Rheumatoid arthritis 4. CAD s/p CABG 5. COPD 6. BPH DISCHARGE DIAGNOSES: 1. Symptomatic anemia 2. Drug induced pancytopenia 3. Rheumatoid arthritis 4. CAD s/p CABG 5. COPD 6. BPH COMPLICATIONS/CHIEF COMPLAINT: Anemia,Weakness. HISTORY OF PRESENT ILLNESS: Mr. Weldon is an 85-year-old male with coronary artery disease status post CABG and rheumatoid arthritis who presents with exertional dyspnea and weakness and found to have acute anemia. Patient denies any new medications. Most recent medication change is the discontinuation of losartan due to blood pressure. Otherwise he is on full dose aspirin. For the past week, he suddenly started to feel lightheaded and dizzy with exertional dyspnea. He denies any melena, hematochezia, hematuria, or hemoptysis. 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 Instructed the patient to go to the ED for evaluation today. While in the ED, he was found to have pancytopenia. Hemoglobin dropped to 7.4. Otherwise, vital signs stable. Patient reported fatigue, lightheadedness, and exertional dyspnea. Denies any chest pain, abdominal pain, diarrhea, or dysuria. Patient has had blood transfusions in the past, but only after surgeries. He signed consent for blood. Patient will be admitted for acute anemia. Due to patient's pancytopenia, I reached out to oncology, Dr. Thomas. He suspects that patient's pancytopenia is from methotrexate. Some patients are slow metabolizer's of methotrexate and he may have higher levels of methotrexate. Recommending folinic acid (leucovorin). HOSPITAL COURSE: Patient's hemoglobin responded to the 2units of blood. The following day, he felt better. Denied chest pain or dyspnea. We check two CBC 6 hours apart and they were stable. He felt ready for home and was discharged home with 8 more doses of leucovorin (for a total of 10 doses). Methotrexate continues to be discontinued DISCHARGE MEDICATIONS: Please see below. ALLERGIES: Please see below. PHYSICAL EXAMINATION ON DISCHARGE: VITAL SIGNS: Please see below. GENERAL: Comfortable, in no apparent distress HEENT: Head normocephalic, atraumatic NECK: Supple CARDIOVASCULAR EXAMINATION: Regular rate and rhythm RESPIRATORY EXAMINATION: Lungs clear to auscultation bilaterally ABDOMINAL EXAMINATION: Soft, non-tender, normal bowel sounds EXTREMITIES: No pitting edema bilaterally SKIN: Warm and dry NEUROLOGICAL EXAMINATION: CN 3-12 grossly intact PSYCHIATRIC EXAMINATION: Normal mood and affect LABORATORY DATA: Please see below. IMAGING: Radiologist interpretation CXR Chronic appearing changes. Limited examination due to poor inspiratory effort. No focal consolidation or effusion. PROGNOSIS: Good ACTIVITY: As tolerated. DIET: As tolerated DISCHARGE PLAN: Home DISPOSITION: Home, Self-Care. DISCHARGE INSTRUCTIONS: 1. Follow up with PCP in 1 week 2. Follow up with rheumatology in 1 to 2 weeks 3. Discontinue methotrexate 4. Continue Leucovorin for 8 more doses ITEMS TO FOLLOWUP ON ON OUTPATIENT: 1. Hemoglobin 2. Alternative to methotrexate or reduction in methotrexate DISCHARGE CONDITION: Stable Total time spent on discharge planning, discharge summary, and medication reconciliation: 45 minutes Vital Signs/I&Os Vital Signs Date Time Temp Pulse Resp B/P (MAP) Pulse Ox O2 Delivery O2 Flow Rate FiO2 12/26/20 06:00 97.2 62 17 138/63 (88) 99 Room Air I&O- Last 24 Hours up to 6 AM 12/26/20 06:00 Intake Total 1100 ml Output Total 350 ml Balance 750 ml Laboratory Data Labs 24H Laboratory Tests 2 12/26/20 06:11: Nucleated Red Blood Cells % (auto) 0.0, Anion Gap 9, Glomerular Filtration Rate 34.9L, Calcium Level 8.2L 12/26/20 12:39: Nucleated Red Blood Cells % (auto) 0.8H 12/26/20 13:16: Lab Scanned Report Transfusion Record CBC/BMP Laboratory Tests 12/26/20 06:11 12/26/20 12:39 Discharge Medications Scheduled Aspirin (Aspirin EC) 325 Mg Tabec, 325 MG PO DAILY, (Reported) Atorvastatin Calcium (Lipitor) 10 Mg Tab, 5 MG PO QHS, (Reported) Folic Acid (Folic Acid) 1 Mg Tablet, 1 MG PO DAILY, (Reported) Infliximab Injection (Remicade) 100 Mg Vial, 100 MG IV ASDIRECTED, (Reported) EVERY 7 WEEKS Leucovorin Calcium (Leucovorin Calcium) 5 Mg Tablet, 15 MG PO Q6H Losartan Potassium (Losartan Potassium) 50 Mg Tablet, 50 MG PO DAILY, (Reported) Magnesium Chloride (Mag64) 64 Mg Tablet.dr, 64 MG PO QHS, (Reported) Multivitamins (Thera M Plus Tablet) 1 Tab Tab, 1 TAB PO QHS, (Reported) Omeprazole (Omeprazole) 20 Mg Capsule.dr, 20 MG PO DAILY, (Reported) Tamsulosin HCl (Flomax) 0.4 Mg Capsule, 0.4 MG PO QHS, (Reported) Tiotropium [place] (Spiriva) 18 Mcg Cap.w.dev, 18 MCG INH DAILY, (Reported) Ubidecarenone (Co Q-10) 200 Mg Cap, 200 MG PO QHS, (Reported) Scheduled PRN Albuterol Sulfate (Proair Hfa) 8.5 Gm Hfa.aer.ad, 2 PUFF INH Q4H PRN for SHORTNESS OF BREATH, (Reported) Melatonin (Melatonin) 5 Mg Capsule, 5 MG PO QHS PRN for INSOMNIA, (Reported) Nitroglycerin (Nitrostat) 0.4 Mg Subl, 0.4 MG SL NITRO PRN for CHEST PAIN, (Reported) [Restful Legs] , 1 TAB SL QHS PRN for RESTLESS LEGS, (Reported) Allergies Coded Allergies: No Known Allergies (Verified , 01/01/19) DICK CURRAN DO Dec 26, 2020 23:50
== END 2020-12-26 15:45 | disposition home or self-care (01) | DRG 810 ==
LOC: M ED 11:18 → M ED INP 15:00 → M MSPAV 20:42
PROVIDERS: ADMIT Internal Medicine; ATTEND Internal Medicine
DX: D61.811 Other drug-induced pancytopenia (principal); I25.10 Atherosclerotic heart disease of native coronary artery without angina pectoris; Z95.5 Presence of coronary angioplasty implant and graft; M06.9 Rheumatoid arthritis, unspecified; Z79.82 Long term (current) use of aspirin; Z79.899 Other long term (current) drug therapy; I12.9 Hypertensive chronic kidney disease with stage 1 through stage 4 chronic kidney disease, or unspecified chronic kidney disease; E78.00 Pure hypercholesterolemia, unspecified; N18.30 Chronic kidney disease, stage 3 unspecified; N40.0 Benign prostatic hyperplasia without lower urinary tract symptoms; Z98.41 Cataract extraction status, right eye; Z98.42 Cataract extraction status, left eye; Z96.652 Presence of left artificial knee joint; Z87.891 Personal history of nicotine dependence; Z20.822 Contact with and (suspected) exposure to COVID-19; J44.9 Chronic obstructive pulmonary disease, unspecified

== ENCOUNTER → 2020-12-31 | Outpatient (REF) | payer MEDICARE ==
[~2020-12-31] MED LIST changes: +DOXY-443 PO; -DOXY1CAP62 PO; +LEUC5TA PO; -LEVO500T3 PO; +LEVO500T4 PO; +LOSA25TA13 PO; -LOSA25TA14 PO; +LOSA50TA28 PO; -LOSA50TA88 PO; +PROAAER10 INH; +RESTFUL LEGS SL; +SPIR1CAP INH
== END ==
LOC: M SFHCPLAZ 10:12
PROVIDERS: ATTEND Nurse Practitioner Adult Health
DX: Z53.9 Procedure and treatment not carried out, unspecified reason (principal); D61.818 Other pancytopenia

== ENCOUNTER → 2020-12-31 | Outpatient (CLI) | payer MEDICARE ==
[~2020-12-31] MED LIST changes: -DOXY-443 PO; +DOXY1CAP62 PO; +LEVO500T3 PO; -LEVO500T4 PO; -LOSA25TA13 PO; +LOSA25TA14 PO; -LOSA50TA28 PO; +LOSA50TA88 PO
[2020-12-31 11:36] LABS: HEMOGLOBIN 10.2 g/dl (13.5-17.5); MEAN CORPUSCULAR HEMOGLOBIN 33.4 pg (27.0-33.0); MEAN CORPUSCULAR VOLUME 98.4 fl (80.0-96.0); PLATELET COUNT, AUTOMATED 149 10^3/uL (150-450); RED BLOOD COUNT 3.05 10^6/uL (4.30-6.10); WHITE BLOOD COUNT 3.3 10^3/uL (4.0-10.0)
[2020-12-31 12:28] LABS: ALBUMIN 3.4 GM/DL (3.2-5.2); BILIRUBIN,TOTAL 0.7 MG/DL (0.2-1.0); CALCIUM LEVEL 9.1 MG/DL (8.8-10.2); CHOLESTEROL RISK RATIO 2.785 (<5); CREATININE FOR GFR 1.87 MG/DL (0.70-1.30); GLOMERULAR FILTRATION RATE 36.8 (>35); POTASSIUM SERUM 4.8 MEQ/L (3.5-5.1); PTH INTACT 66.8 PG/ML (18.5-88.0); TOTAL PROTEIN 6.7 GM/DL (6.4-8.2)
[2020-12-31 12:39] LABS: FERRITIN 506 NG/ML (26-388); FOLATE > 24.0 NG/ML; IRON (FE) 51 UG/DL (65-175); PERCENT SATURATION 20.7 % (19.7-50.0); TOTAL IRON BINDING CAPACITY 246 UG/DL (250-450); VITAMIN B12 LEVEL 563 PG/ML
[2020-12-31 12:40] LABS: ATYPICAL LYMPH 1 % (0-5); EOSINOPHILS 6 % (0-3); LYMPHOCYTES 41 % (16-44); MONOCYTES 22 % (0-5); NEUTROPHILS 30 % (28-66)
[2020-12-31 12:41] LABS: ANISOCYTOSIS 1+; OVALOCYTES 1+; PLATELET ESTIMATE NORMAL (NORMAL); POLYCHROMASIA 1+
== END ==
LOC: M PLALAB 09:21
PROVIDERS: ATTEND Internal Medicine
DX: D64.9 Anemia, unspecified (principal); I12.9 Hypertensive chronic kidney disease with stage 1 through stage 4 chronic kidney disease, or unspecified chronic kidney disease; N18.30 Chronic kidney disease, stage 3 unspecified; E78.00 Pure hypercholesterolemia, unspecified

== ENCOUNTER → 2021-01-12 | Outpatient (CLI) | payer MEDICARE ==
[2021-01-12 13:41] LABS: BASO # 0.2 10^3/uL (0.0-0.2); BASO % 1.7 % (0.0-1.0); EOS # 0.5 10^3/uL (0.0-0.5); EOS % 5.4 % (0.0-3.0); HEMATOCRIT 36.5 % (42.0-52.0); HEMOGLOBIN 11.9 g/dl (13.5-17.5); LYMPH # 3.9 10^3/uL (1.5-5.0); LYMPH % 41.5 % (24.0-44.0); MEAN CORPUSCULAR HGB CONC 32.6 g/dl (32.0-36.5); MEAN CORPUSCULAR VOLUME 101.1 fl (80.0-96.0); MONO # 1.3 10^3/uL (0.0-0.8); MONO % 13.2 % (2.0-8.0); NEUTROPHILS # 3.6 10^3/uL (1.5-8.5); NEUTROPHILS % 37.5 % (36.0-66.0); PLATELET COUNT, AUTOMATED 362 10^3/uL (150-450); RED BLOOD COUNT 3.61 10^6/uL (4.30-6.10); WHITE BLOOD COUNT 9.5 10^3/uL (4.0-10.0)
== END ==
LOC: M PLALAB 12:03
PROVIDERS: ATTEND Internal Medicine
DX: D64.9 Anemia, unspecified (principal)

== ENCOUNTER → 2021-01-12 | Outpatient (CLI) | payer MEDICARE ==
[~2021-01-12] MED LIST changes: +DOXY-443 PO; -DOXY1CAP62 PO
--- NOTE | 2021-01-12 14:38 | REP ---
INDICATION: RENAL CYST. COMPARISON: 09/22/2020. TECHNIQUE: Real-time sonographic evaluation of the kidneys is performed. FINDINGS: Renal cortical echogenicity pattern is normal bilaterally and contours are smooth. There is no hydronephrosis bilaterally. Multiple cystic and hypoechoic nodules are again seen bilaterally. A hypoechoic nodule in the right upper pole measures 2.1 x 1.9 x 2.2 cm, which may represent a complex cyst or solid nodule. On the prior study there was a 9 mm hypoechoic nodule at that location. In the mid right kidney there are 2 hypoechoic nodules, measuring 1 cm and 5 mm in maximum diameter, stable or decreased in size. There is a stable anechoic cyst in the right lower pole 2.4 x 1.8 x 2.0 cm. On the left a hypoechoic nodule in the upper pole appears to have increased in size, measuring 1.0 x 0.7 x 1.6 cm, previously 8 mm. Two cysts in the mid left kidney measured 2.6 and 1.5 cm maximally. There is a septated cyst in the left lower pole 1.2 cm in diameter. The right kidney measures 8.1 x 3.5 x 5.3 cm. Left renal dimensions are 11.8 x 4.5 x 4.5 cm. The urinary bladder is unremarkable. Ureteral jets are not visualized in the urinary bladder with Doppler color evaluation. The spleen is enlarged measuring 13.1 x 6.9 x 13.6 cm. The prostate is enlarged measuring 6.0 x 5.4 x 4.9 cm. IMPRESSION: There are bilateral renal cysts. In addition, there are bilateral hypoechoic nodules which may represent complex cysts or solid nodules. Recommend dedicated MRI of the kidneys with and without contrast to further evaluate. <Electronically signed by Evgeny aBrry > 01/12/21 [id number]
== END ==
LOC: M RAD 12:43
PROVIDERS: ATTEND Internal Medicine
DX: D64.9 Anemia, unspecified (principal); N28.1 Cyst of kidney, acquired

== ENCOUNTER → 2021-01-16 | Outpatient (CLI) | payer MEDICARE ==
[~2021-01-16] MED LIST changes: -DOXY-443 PO; +DOXY1CAP62 PO
--- NOTE | 2021-01-16 16:49 | REP ---
INDICATION: BAILEY RENAL CYSTS. COMPARISON: 04/04/2020. TECHNIQUE: Multiple sequences obtained in the axial coronal planes prior to and following the intravenous administration of 8 mL ProHance. FINDINGS: Scattered small benign appearing cysts are present bilaterally, largest on the right is in the lower pole measuring 2 cm in diameter and the largest on the left is also in the lower pole measuring 2.6 cm. There is no hydronephrosis bilaterally. A hemorrhagic or proteinaceous cyst in the posterior mid right kidney does not demonstrate definite internal enhancement, measuring approximately 2.6 x 1.8 cm. However along the lateral margin of that hemorrhagic cyst there is an enhancing nodule likely representing renal cell carcinoma, measuring 1.8 cm in diameter. Along the medial aspect of that hemorrhagic cyst there are 2 enhancing nodules, 1.3 cm in diameter and 1.7 cm in diameter, also suspicious for renal cell carcinoma. In the left kidney mid aspect posteromedially there is an enhancing nodule compatible with renal cell carcinoma 3.2 x 2.6 cm. A hemorrhagic or proteinaceous cyst is seen anteriorly of the lower pole the left kidney, exophytic in nature, measuring approximately 1.9 cm. The sized visualized liver, spleen, adrenals and pancreas are unremarkable. I see no adenopathy or free fluid in the abdomen. IMPRESSION: There are enhancing nodules bilaterally suspicious for renal cell carcinoma, 3 in the mid right kidney and 1 in the mid left kidney, as discussed in detail above. There are also small bilateral renal cysts. There is no adenopathy in the abdomen. <Electronically signed by Evgeny Barry > 01/16/21 [id number]
== END ==
LOC: M PLARAD 10:41
PROVIDERS: ATTEND Internal Medicine
DX: N28.89 Other specified disorders of kidney and ureter (principal); N28.1 Cyst of kidney, acquired

== ENCOUNTER → 2021-01-26 | Outpatient (CLI) | payer MEDICARE ==
[2021-01-26 13:37] LABS: BASO # 0.1 10^3/uL (0.0-0.2); BASO % 0.8 % (0.0-1.0); EOS # 0.7 10^3/uL (0.0-0.5); EOS % 7.3 % (0.0-3.0); HEMATOCRIT 39.6 % (42.0-52.0); HEMOGLOBIN 12.8 g/dl (13.5-17.5); LYMPH # 3.7 10^3/uL (1.5-5.0); LYMPH % 38.3 % (24.0-44.0); MEAN CORPUSCULAR HEMOGLOBIN 31.8 pg (27.0-33.0); MEAN CORPUSCULAR HGB CONC 32.3 g/dl (32.0-36.5); MEAN CORPUSCULAR VOLUME 98.3 fl (80.0-96.0); MONO # 0.9 10^3/uL (0.0-0.8); MONO % 9.7 % (2.0-8.0); NEUTROPHILS # 4.3 10^3/uL (1.5-8.5); NEUTROPHILS % 43.6 % (36.0-66.0); PLATELET COUNT, AUTOMATED 132 10^3/uL (150-450); RED BLOOD COUNT 4.03 10^6/uL (4.30-6.10); WHITE BLOOD COUNT 9.7 10^3/uL (4.0-10.0)
== END ==
LOC: M PLALAB 09:24
PROVIDERS: ATTEND Internal Medicine
DX: D64.9 Anemia, unspecified (principal)

== ENCOUNTER → 2021-01-26 | Outpatient (CLI) | payer MEDICARE ==
[2021-01-26 14:07] LABS: BASO # 0.1 10^3/uL (0.0-0.2); EOS # 0.7 10^3/uL (0.0-0.5); EOS % 7.2 % (0.0-3.0); HEMATOCRIT 39.7 % (42.0-52.0); HEMOGLOBIN 12.8 g/dl (13.5-17.5); LYMPH # 3.9 10^3/uL (1.5-5.0); LYMPH % 39.6 % (24.0-44.0); MEAN CORPUSCULAR HEMOGLOBIN 31.8 pg (27.0-33.0); MEAN CORPUSCULAR HGB CONC 32.2 g/dl (32.0-36.5); MEAN CORPUSCULAR VOLUME 98.8 fl (80.0-96.0); MONO # 0.7 10^3/uL (0.0-0.8); MONO % 7.5 % (2.0-8.0); NEUTROPHILS # 4.3 10^3/uL (1.5-8.5); NEUTROPHILS % 44.5 % (36.0-66.0); PLATELET COUNT, AUTOMATED 130 10^3/uL (150-450); RED BLOOD COUNT 4.02 10^6/uL (4.30-6.10); WHITE BLOOD COUNT 9.7 10^3/uL (4.0-10.0)
[2021-01-26 14:38] LABS: ERYTHROCYTE SEDIMENTATION RATE 7 mm/hr (0-20)
[2021-01-26 14:39] LABS: ALBUMIN 3.4 GM/DL (3.2-5.2); BILIRUBIN,TOTAL 0.3 MG/DL (0.2-1.0); C REACTIVE PROTEIN QUANTITATIV 0.3 MG/DL (0.00-0.30); CALCIUM LEVEL 8.9 MG/DL (8.8-10.2); CREATININE FOR GFR 1.93 MG/DL (0.70-1.30); GLOMERULAR FILTRATION RATE 35.5 (>35); TOTAL PROTEIN 7.3 GM/DL (6.4-8.2)
== END ==
LOC: M PLALAB 09:27
PROVIDERS: ATTEND Internal Medicine Rheumatology
DX: M05.79 Rheumatoid arthritis with rheumatoid factor of multiple sites without organ or systems involvement (principal); Z79.899 Other long term (current) drug therapy; D64.9 Anemia, unspecified

== ENCOUNTER → 2021-02-09 | Outpatient (CLI) | payer MEDICARE ==
[2021-02-09 13:52] LABS: BASO # 0.1 10^3/uL (0.0-0.2); BASO % 0.8 % (0.0-1.0); EOS # 0.3 10^3/uL (0.0-0.5); HEMATOCRIT 42.1 % (42.0-52.0); HEMOGLOBIN 13.6 g/dl (13.5-17.5); LYMPH # 3.3 10^3/uL (1.5-5.0); MEAN CORPUSCULAR HEMOGLOBIN 31.1 pg (27.0-33.0); MEAN CORPUSCULAR HGB CONC 32.3 g/dl (32.0-36.5); MEAN CORPUSCULAR VOLUME 96.3 fl (80.0-96.0); MONO # 0.6 10^3/uL (0.0-0.8); MONO % 9.3 % (2.0-8.0); NEUTROPHILS # 2.1 10^3/uL (1.5-8.5); NEUTROPHILS % 32.6 % (36.0-66.0); PLATELET COUNT, AUTOMATED 108 10^3/uL (150-450); RED BLOOD COUNT 4.37 10^6/uL (4.30-6.10); WHITE BLOOD COUNT 6.4 10^3/uL (4.0-10.0)
== END ==
LOC: M PLALAB 09:37
PROVIDERS: ATTEND Internal Medicine
DX: D64.9 Anemia, unspecified (principal)

== ENCOUNTER → 2021-02-23 | Outpatient (CLI) | payer MEDICARE ==
[~2021-02-23] MED LIST changes: +DOXY-443 PO; -DOXY1CAP62 PO
[2021-02-23 13:39] LABS: BASO # 0.1 10^3/uL (0.0-0.2); BASO % 0.7 % (0.0-1.0); EOS # 0.2 10^3/uL (0.0-0.5); EOS % 2.3 % (0.0-3.0); HEMATOCRIT 41.2 % (42.0-52.0); HEMOGLOBIN 13.5 g/dl (13.5-17.5); LYMPH # 3.3 10^3/uL (1.5-5.0); LYMPH % 43.2 % (24.0-44.0); MEAN CORPUSCULAR HEMOGLOBIN 30.7 pg (27.0-33.0); MEAN CORPUSCULAR HGB CONC 32.8 g/dl (32.0-36.5); MEAN CORPUSCULAR VOLUME 93.6 fl (80.0-96.0); MONO # 0.8 10^3/uL (0.0-0.8); MONO % 10.4 % (2.0-8.0); NEUTROPHILS # 3.3 10^3/uL (1.5-8.5); NEUTROPHILS % 43.1 % (36.0-66.0); PLATELET COUNT, AUTOMATED 183 10^3/uL (150-450); WHITE BLOOD COUNT 7.7 10^3/uL (4.0-10.0)
== END ==
LOC: M PLALAB 10:55
PROVIDERS: ATTEND Internal Medicine
DX: D64.9 Anemia, unspecified (principal)

== ENCOUNTER → 2021-03-09 | Outpatient (CLI) | payer MEDICARE ==
[2021-03-09 11:30] LABS: BASO # 0.1 10^3/uL (0.0-0.2); BASO % 0.8 % (0.0-1.0); EOS # 0.4 10^3/uL (0.0-0.5); EOS % 5.9 % (0.0-3.0); HEMATOCRIT 41.8 % (42.0-52.0); HEMOGLOBIN 13.8 g/dl (13.5-17.5); LYMPH # 2.6 10^3/uL (1.5-5.0); LYMPH % 42.4 % (24.0-44.0); MEAN CORPUSCULAR HEMOGLOBIN 29.9 pg (27.0-33.0); MEAN CORPUSCULAR VOLUME 90.7 fl (80.0-96.0); MONO # 0.7 10^3/uL (0.0-0.8); MONO % 10.7 % (2.0-8.0); NEUTROPHILS # 2.4 10^3/uL (1.5-8.5); PLATELET COUNT, AUTOMATED 153 10^3/uL (150-450); RED BLOOD COUNT 4.61 10^6/uL (4.30-6.10); WHITE BLOOD COUNT 6.1 10^3/uL (4.0-10.0)
== END ==
LOC: M PLALAB 08:52
PROVIDERS: ATTEND Internal Medicine
DX: D64.9 Anemia, unspecified (principal)

== ENCOUNTER → 2021-03-23 | Outpatient (CLI) | payer MEDICARE ==
[2021-03-23 10:59] LABS: BASO # 0.1 10^3/uL (0.0-0.2); EOS # 0.3 10^3/uL (0.0-0.5); EOS % 4.8 % (0.0-3.0); HEMATOCRIT 44.7 % (42.0-52.0); HEMOGLOBIN 14.6 g/dl (13.5-17.5); LYMPH # 3.1 10^3/uL (1.5-5.0); LYMPH % 44.7 % (24.0-44.0); MEAN CORPUSCULAR HEMOGLOBIN 29.4 pg (27.0-33.0); MEAN CORPUSCULAR HGB CONC 32.7 g/dl (32.0-36.5); MEAN CORPUSCULAR VOLUME 90.1 fl (80.0-96.0); MONO # 0.6 10^3/uL (0.0-0.8); MONO % 9.2 % (2.0-8.0); NEUTROPHILS # 2.8 10^3/uL (1.5-8.5); NEUTROPHILS % 40.2 % (36.0-66.0); PLATELET COUNT, AUTOMATED 147 10^3/uL (150-450); RED BLOOD COUNT 4.96 10^6/uL (4.30-6.10); WHITE BLOOD COUNT 6.9 10^3/uL (4.0-10.0)
== END ==
LOC: M PLALAB 08:51
PROVIDERS: ATTEND Internal Medicine
DX: D64.9 Anemia, unspecified (principal)

== ENCOUNTER → 2021-04-29 | Outpatient (CLI) | payer MEDICARE ==
[2021-04-29 10:36] LABS: BASO # 0.1 10^3/uL (0.0-0.2); EOS # 0.3 10^3/uL (0.0-0.5); EOS % 4.3 % (0.0-3.0); HEMATOCRIT 43.7 % (42.0-52.0); HEMOGLOBIN 14.4 g/dl (13.5-17.5); LYMPH # 2.3 10^3/uL (1.5-5.0); LYMPH % 40.2 % (24.0-44.0); MEAN CORPUSCULAR VOLUME 87.9 fl (80.0-96.0); MONO # 0.5 10^3/uL (0.0-0.8); MONO % 8.9 % (2.0-8.0); NEUTROPHILS # 2.6 10^3/uL (1.5-8.5); NEUTROPHILS % 45.1 % (36.0-66.0); PLATELET COUNT, AUTOMATED 143 10^3/uL (150-450); RED BLOOD COUNT 4.97 10^6/uL (4.30-6.10); WHITE BLOOD COUNT 5.8 10^3/uL (4.0-10.0)
[2021-04-29 11:04] LABS: ALBUMIN 3.5 GM/DL (3.2-5.2); BILIRUBIN,TOTAL 0.4 MG/DL (0.2-1.0); CALCIUM LEVEL 9.5 MG/DL (8.8-10.2); CREATININE FOR GFR 1.96 MG/DL (0.70-1.30); GLOMERULAR FILTRATION RATE 34.8 (>35); MAGNESIUM LEVEL 2.1 MG/DL (1.8-2.4); POTASSIUM SERUM 4.7 MEQ/L (3.5-5.1); TOTAL PROTEIN 7.6 GM/DL (6.4-8.2)
== END ==
LOC: M PLALAB 07:46
PROVIDERS: ATTEND Internal Medicine
DX: I12.9 Hypertensive chronic kidney disease with stage 1 through stage 4 chronic kidney disease, or unspecified chronic kidney disease (principal); Z11.59 Encounter for screening for other viral diseases; D64.9 Anemia, unspecified
CPT/HCPCS: 36415; 80053; 83735; 83970; 85025; G0472

== ENCOUNTER → 2021-09-10 | Outpatient (CLI) | payer MEDICARE ==
[~2021-09-10] MED LIST changes: -LEVO500T3 PO; +LEVO500T4 PO; +LOSA25TA13 PO; -LOSA25TA14 PO; +LOSA50TA28 PO; -LOSA50TA88 PO
[2021-09-10 13:40] LABS: BASO # 0.1 10^3/uL (0.0-0.2); BASO % 1.2 % (0.0-1.0); EOS # 0.3 10^3/uL (0.0-0.5); EOS % 3.9 % (0.0-3.0); HEMOGLOBIN 14.9 g/dl (13.5-17.5); LYMPH # 2.7 10^3/uL (1.5-5.0); LYMPH % 38.4 % (24.0-44.0); MEAN CORPUSCULAR HEMOGLOBIN 30.5 pg (27.0-33.0); MEAN CORPUSCULAR HGB CONC 33.9 g/dl (32.0-36.5); MEAN CORPUSCULAR VOLUME 90.2 fl (80.0-96.0); MONO # 0.6 10^3/uL (0.0-0.8); MONO % 9.2 % (2.0-8.0); NEUTROPHILS # 3.3 10^3/uL (1.5-8.5); PLATELET COUNT, AUTOMATED 131 10^3/uL (150-450); RED BLOOD COUNT 4.88 10^6/uL (4.30-6.10); WHITE BLOOD COUNT 6.9 10^3/uL (4.0-10.0)
[2021-09-10 14:31] LABS: ALBUMIN 3.6 GM/DL (3.2-5.2); BILIRUBIN,TOTAL 0.9 MG/DL (0.2-1.0); CALCIUM LEVEL 9.6 MG/DL (8.8-10.2); CREATININE FOR GFR 2.13 MG/DL (0.70-1.30); GLOMERULAR FILTRATION RATE 31.6 (>35); MAGNESIUM LEVEL 2.2 MG/DL (1.8-2.4); TOTAL PROTEIN 7.5 GM/DL (6.4-8.2)
== END ==
LOC: M PLALAB 09:46
PROVIDERS: ATTEND Internal Medicine
DX: I12.9 Hypertensive chronic kidney disease with stage 1 through stage 4 chronic kidney disease, or unspecified chronic kidney disease (principal); D69.6 Thrombocytopenia, unspecified; N18.32 Chronic kidney disease, stage 3b

== ENCOUNTER → 2021-09-22 | Outpatient (CLI) | payer MEDICARE ==
[2021-09-22 07:05] LABS: CALCIUM LEVEL 9.3 MG/DL (8.8-10.2); CREATININE FOR GFR 2.14 MG/DL (0.70-1.30); GLOMERULAR FILTRATION RATE 31.4 (>35); POTASSIUM SERUM 4.3 MEQ/L (3.5-5.1)
== END ==
LOC: M LAB 06:09
PROVIDERS: ATTEND Internal Medicine
DX: N18.32 Chronic kidney disease, stage 3b (principal)

== ENCOUNTER → 2021-11-06 | Outpatient (CLI) | payer MEDICARE ==
[2021-11-06 10:10] LABS: BASO # 0.1 10^3/uL (0.0-0.2); BASO % 1.1 % (0.0-1.0); EOS # 0.4 10^3/uL (0.0-0.5); EOS % 4.2 % (0.0-3.0); HEMATOCRIT 42.8 % (42.0-52.0); HEMOGLOBIN 14.2 g/dl (13.5-17.5); LYMPH % 35.9 % (24.0-44.0); MEAN CORPUSCULAR HGB CONC 33.2 g/dl (32.0-36.5); MEAN CORPUSCULAR VOLUME 90.5 fl (80.0-96.0); MONO # 0.7 10^3/uL (0.0-0.8); MONO % 8.5 % (2.0-8.0); NEUTROPHILS # 4.1 10^3/uL (1.5-8.5); NEUTROPHILS % 50.1 % (36.0-66.0); PLATELET COUNT, AUTOMATED 163 10^3/uL (150-450); RED BLOOD COUNT 4.73 10^6/uL (4.30-6.10); WHITE BLOOD COUNT 8.3 10^3/uL (4.0-10.0)
[2021-11-06 10:51] LABS: ALBUMIN 3.6 GM/DL (3.2-5.2); BILIRUBIN,TOTAL 0.5 MG/DL (0.2-1.0); C REACTIVE PROTEIN QUANTITATIV 0.3 MG/DL (0.00-0.30); CALCIUM LEVEL 9.7 MG/DL (8.8-10.2); CREATININE FOR GFR 2.14 MG/DL (0.70-1.30); GLOMERULAR FILTRATION RATE 31.4 (>35); POTASSIUM SERUM 4.5 MEQ/L (3.5-5.1); TOTAL PROTEIN 8.1 GM/DL (6.4-8.2)
[2021-11-06 10:52] LABS: ERYTHROCYTE SEDIMENTATION RATE 13 mm/hr (0-20)
== END ==
LOC: M LAB 08:01 → M PLALAB 08:01
PROVIDERS: ATTEND Internal Medicine Rheumatology
DX: Z79.899 Other long term (current) drug therapy (principal)

== ENCOUNTER → 2022-01-22 | Outpatient (REF) | payer MEDICARE ==
[~2022-01-22] MED LIST changes: +LEVO1TAB39 PO; -LEVO500T4 PO
[2022-01-25 15:07] LABS: ANA (HEP2) Positive (.)
== END ==
LOC: M LAB REF 17:16
PROVIDERS: ATTEND Internal Medicine
DX: G45.3 Amaurosis fugax (principal)

== ENCOUNTER → 2022-01-28 | Outpatient (CLI) | payer MEDICARE | LOC: M EKG 07:54 | PROVIDERS: ATTEND Internal Medicine | DX: G45.9 Transient cerebral ischemic attack, unspecified (principal) ==

== ENCOUNTER → 2022-02-04 | Outpatient (CLI) | payer MEDICARE | LOC: M RAD 09:29 | PROVIDERS: ATTEND Internal Medicine | DX: G45.9 Transient cerebral ischemic attack, unspecified (principal); I67.2 Cerebral atherosclerosis ==

== ENCOUNTER → 2022-02-24 | Outpatient (CLI) | payer MEDICARE | LOC: M CARPUL 09:52 | PROVIDERS: ATTEND Internal Medicine | DX: G45.9 Transient cerebral ischemic attack, unspecified (principal) ==

== ENCOUNTER 2022-03-05 18:49 | Observation (INO) | payer MEDICARE ==
[~2022-03-05] VITALS: Ht 167.6 cm; Wt 92.7 kg
[2022-03-05] MEDS ORDERED: PHENYLEPHRINE 0.5% NASAL SPRAY 15 ML ONE (20:40)
[2022-03-05] MEDS ORDERED: LOSARTAN 50MG TABLET PO STA (21:16)
[2022-03-05 21:17] LABS: BASO % 0.6 % (0.0-1.0); EOS # 0.3 10^3/uL (0.0-0.5); EOS % 3.5 % (0.0-3.0); HEMOGLOBIN 13.6 g/dl (13.5-17.5); LYMPH # 2.8 10^3/uL (1.5-5.0); LYMPH % 39.4 % (24.0-44.0); MEAN CORPUSCULAR HGB CONC 33.2 g/dl (32.0-36.5); MEAN CORPUSCULAR VOLUME 90.3 fl (80.0-96.0); MONO # 0.5 10^3/uL (0.0-0.8); MONO % 7.6 % (2.0-8.0); NEUTROPHILS # 3.5 10^3/uL (1.5-8.5); NEUTROPHILS % 48.6 % (36.0-66.0); PLATELET COUNT, AUTOMATED 162 10^3/uL (150-450); RED BLOOD COUNT 4.54 10^6/uL (4.30-6.10); WHITE BLOOD COUNT 7.1 10^3/uL (4.0-10.0)
[2022-03-05 21:25] LABS: PARTIAL THROMBOPLASTIN TIME 28.2 SECONDS (24.8-34.2)
[2022-03-05 21:29] LABS: ALBUMIN 3.6 GM/DL (3.2-5.2); BILIRUBIN,DIRECT 0.1 MG/DL (0.0-0.2); BILIRUBIN,TOTAL 0.3 MG/DL (0.2-1.0); CALCIUM LEVEL 8.9 MG/DL (8.8-10.2); POTASSIUM SERUM 4.2 MEQ/L (3.5-5.1); TOTAL PROTEIN 7.9 GM/DL (6.4-8.2)
[2022-03-05 22:00] LABS: RSV AMPLIFICATION NEGATIVE (NEGATIVE)
[2022-03-05 22:23] LABS: INR 1.12; PROTHROMBIN TIME 14.6 SECONDS (12.5-14.5)
[2022-03-05] MEDS ORDERED: ALBU8.5H INH (22:52)
[2022-03-05] MEDS ORDERED: CLOP75TA2 PO (22:55)
[2022-03-05] MEDS ORDERED: PRED5TA PO (22:55)
[2022-03-05] MEDS ORDERED: HOME MED LIST COMPLETE! XX SCH (23:00)
[2022-03-06 07:01] LABS: HEMATOCRIT 38.3 % (42.0-52.0); HEMOGLOBIN 12.5 g/dl (13.5-17.5); MEAN CORPUSCULAR HEMOGLOBIN 29.9 pg (27.0-33.0); MEAN CORPUSCULAR HGB CONC 32.6 g/dl (32.0-36.5); MEAN CORPUSCULAR VOLUME 91.6 fl (80.0-96.0); PLATELET COUNT, AUTOMATED 151 10^3/uL (150-450); RED BLOOD COUNT 4.18 10^6/uL (4.30-6.10); WHITE BLOOD COUNT 8.5 10^3/uL (4.0-10.0)
[2022-03-06 07:39] LABS: CALCIUM LEVEL 9.2 MG/DL (8.8-10.2); CREATININE FOR GFR 1.89 MG/DL (0.70-1.30); GLOMERULAR FILTRATION RATE 36.3 (>35); POTASSIUM SERUM 4.3 MEQ/L (3.5-5.1)
[2022-03-06] MEDS ORDERED: ASPI81TA26 PO (10:17)
[2022-03-06 11:41] VITALS: BP 126/82
== END 2022-03-06 11:56 | disposition home or self-care (01) ==
LOC: M ED 18:49 → M ED INP 18:50
PROVIDERS: ADMIT Internal Medicine; ATTEND Internal Medicine
DX: R04.0 Epistaxis (principal); M06.9 Rheumatoid arthritis, unspecified; Z86.73 Personal history of transient ischemic attack (TIA), and cerebral infarction without residual deficits; I25.10 Atherosclerotic heart disease of native coronary artery without angina pectoris; Z98.61 Coronary angioplasty status; N18.30 Chronic kidney disease, stage 3 unspecified; I13.0 Hypertensive heart and chronic kidney disease with heart failure and stage 1 through stage 4 chronic kidney disease, or unspecified chronic kidney disease; I50.20 Unspecified systolic (congestive) heart failure; C64.9 Malignant neoplasm of unspecified kidney, except renal pelvis; Z79.899 Other long term (current) drug therapy; Z79.02 Long term (current) use of antithrombotics/antiplatelets; Z79.82 Long term (current) use of aspirin; N40.0 Benign prostatic hyperplasia without lower urinary tract symptoms; I34.0 Nonrheumatic mitral (valve) insufficiency
CPT/HCPCS: 36415; 80048; 80076; 85025; 85027; 85610; 85730; 86850; 86900; 86901; 86920; 87631; 99285; G0378

== ENCOUNTER → 2022-04-16 | Outpatient (REF) | payer MEDICARE ==
[~2022-04-16] MED LIST changes: +ALBU8.5H INH; +ASPI81TA26 PO; +CLOP75TA2 PO
== END ==
LOC: M LAB REF 11:30
PROVIDERS: ATTEND Internal Medicine
DX: N18.4 Chronic kidney disease, stage 4 (severe) (principal)

== ENCOUNTER → 2023-03-04 | Outpatient (CLI) | payer MEDICARE ==
[2023-03-04 14:01] LABS: BASO # 0.1 10^3/uL (0.0-0.2); BASO % 0.8 % (0.0-1.0); EOS # 0.3 10^3/uL (0.0-0.5); EOS % 2.7 % (0.0-3.0); HEMOGLOBIN 13.7 g/dl (13.5-17.5); LYMPH # 1.9 10^3/uL (1.5-5.0); LYMPH % 20.1 % (24.0-44.0); MEAN CORPUSCULAR HEMOGLOBIN 30.4 pg (27.0-33.0); MEAN CORPUSCULAR HGB CONC 34.3 g/dl (32.0-36.5); MEAN CORPUSCULAR VOLUME 88.7 fl (80.0-96.0); MONO # 0.8 10^3/uL (0.0-0.8); MONO % 8.4 % (2.0-8.0); NEUTROPHILS # 6.4 10^3/uL (1.5-8.5); NEUTROPHILS % 67.4 % (36.0-66.0); PLATELET COUNT, AUTOMATED 235 10^3/uL (150-450); RED BLOOD COUNT 4.51 10^6/uL (4.30-6.10); WHITE BLOOD COUNT 9.5 10^3/uL (4.0-10.0)
[2023-03-04 14:23] LABS: C REACTIVE PROTEIN QUANTITATIV < 0.40 MG/DL (<1.0)
[2023-03-04 14:25] LABS: ALBUMIN 3.6 G/DL (3.2-5.2); ALT/SGPT 26 U/L (7.0-40); AST/SGOT 13 U/L (<34); CREATININE FOR GFR 1.65 MG/DL (0.70-1.30); GLOMERULAR FILTRATION RATE 42.3 (>35)
[2023-03-04 14:48] LABS: ERYTHROCYTE SEDIMENTATION RATE 41 mm/hr (0-20)
== END ==
LOC: M PLALAB 11:03
PROVIDERS: ATTEND Internal Medicine Rheumatology
DX: M05.79 Rheumatoid arthritis with rheumatoid factor of multiple sites without organ or systems involvement (principal)

== ENCOUNTER → 2023-10-12 | Outpatient (REF) | payer MEDICARE ==
[~2023-10-12] MED LIST changes: +DOXY-323 PO; -DOXY-443 PO
== END ==
LOC: M LABSMT 10:46
PROVIDERS: ATTEND Urology
DX: N47.1 Phimosis (principal)

== ENCOUNTER → 2023-10-17 | Outpatient (CLI) | payer MEDICARE | LOC: M RAD 08:02 | PROVIDERS: ATTEND Internal Medicine | DX: I65.23 Occlusion and stenosis of bilateral carotid arteries (principal) ==

== ENCOUNTER → 2024-01-20 | Outpatient (CLI) | payer MEDICARE ==
[~2024-01-20] MED LIST changes: +ALFU10TA23; -ALFU10TA3
== END ==
LOC: M RAD 12:21
PROVIDERS: ATTEND Urology
DX: N28.89 Other specified disorders of kidney and ureter (principal)

== ENCOUNTER 2024-02-14 00:15 | Inpatient (IN) | payer MEDICARE ==
[~2024-02-14] VITALS: Ht 172.7 cm; Wt 96.5 kg
[~2024-02-14 00:15] MED LIST changes: -DOXY-323 PO; +DOXY-441 PO
[2024-02-14] MEDS ORDERED: MORPHINE 4 MG/ML 1ML VIAL As Ordered ONE (00:37)
[2024-02-14] MEDS ORDERED: ONDANSETRON 4MG 2ML VIAL As Ordered ONE (00:37)
[2024-02-14] MEDS: MORPHINE 4 MG/ML 1ML VIAL IV ONE (00:51)
[2024-02-14] MEDS: NS 500 ML IV ONE (00:52)
[2024-02-14] MEDS: ONDANSETRON 4MG 2ML VIAL IV ONE (00:52)
[2024-02-14 00:58] LABS: BASO % 0.5 % (0.0-1.0); EOS # 0.4 10^3/uL (0.0-0.5); EOS % 5.6 % (0.0-3.0); LYMPH # 1.7 10^3/uL (1.5-5.0); LYMPH % 22.2 % (24.0-44.0); MEAN CORPUSCULAR HEMOGLOBIN 30.7 pg (27.0-33.0); MEAN CORPUSCULAR HGB CONC 34.2 g/dl (32.0-36.5); MEAN CORPUSCULAR VOLUME 89.6 fl (80.0-96.0); MONO # 0.7 10^3/uL (0.0-0.8); MONO % 9.7 % (2.0-8.0); NEUTROPHILS # 4.6 10^3/uL (1.5-8.5); NEUTROPHILS % 61.5 % (36.0-66.0); PLATELET COUNT, AUTOMATED 197 10^3/uL (150-450); RED BLOOD COUNT 4.24 10^6/uL (4.30-6.10); WHITE BLOOD COUNT 7.4 10^3/uL (4.0-10.0)
[2024-02-14 01:10] LABS: INR 1.13; PARTIAL THROMBOPLASTIN TIME 27.7 SECONDS (24.8-34.2); PROTHROMBIN TIME 14.2 SECONDS (12.5-14.5)
[2024-02-14 01:24] LABS: ALBUMIN 3.4 G/DL (3.2-5.2); BILIRUBIN,TOTAL 0.3 MG/DL (0.3-1.2); CALCIUM LEVEL 9.1 MG/DL (8.3-10.6); CREATININE FOR GFR 2.23 MG/DL (0.70-1.30); GLOMERULAR FILTRATION RATE 29.8 (>35); POTASSIUM SERUM 4.2 MMOL/L (3.5-5.1)
[2024-02-14] MEDS: HYDROMORPHONE HCL 0.5 MG/ 0.5 ML SYRINGE IV ONE (02:27)
[2024-02-14] MEDS ORDERED: ASPI81TA26 PO (06:19)
[2024-02-14] MEDS ORDERED: RA M10TA PO (06:19)
[2024-02-14] MEDS ORDERED: MULT-40 PO (06:19)
[2024-02-14] MEDS ORDERED: HOME MED LIST COMPLETE! XX SCH (06:20)
[2024-02-14] MEDS: MORPHINE 4 MG/ML 1ML VIAL IV PRN (06:29)
[2024-02-14 07:08] LABS: HEMATOCRIT 39.2 % (42.0-52.0); HEMOGLOBIN 13.1 g/dl (13.5-17.5); MEAN CORPUSCULAR HEMOGLOBIN 30.5 pg (27.0-33.0); MEAN CORPUSCULAR HGB CONC 33.4 g/dl (32.0-36.5); MEAN CORPUSCULAR VOLUME 91.4 fl (80.0-96.0); PLATELET COUNT, AUTOMATED 181 10^3/uL (150-450); RED BLOOD COUNT 4.29 10^6/uL (4.30-6.10); WHITE BLOOD COUNT 9.2 10^3/uL (4.0-10.0)
[2024-02-14 07:26] LABS: CALCIUM LEVEL 9.1 MG/DL (8.3-10.6); CREATININE FOR GFR 2.11 MG/DL (0.70-1.30); GLOMERULAR FILTRATION RATE 31.8 (>35); POTASSIUM SERUM 4.5 MMOL/L (3.5-5.1)
[2024-02-14] MEDS ORDERED: NITROGLYCERIN 0.4MG SUBL TABLET SL PRN (08:10)
[2024-02-14] MEDS: OMEPRAZOLE 20MG CAP PO SCH (08:26)
[2024-02-14] MEDS: ACETAMINOPHEN 325 MG TAB PO PRN (08:26)
[2024-02-14] MEDS: ASPIRIN 81MG ENTERIC TABLET PO SCH (08:26)
[2024-02-14] MEDS: MAGNESIUM GLUCONATE 500 MG TAB PO SCH (08:52)
[2024-02-14] MEDS: NS 1,000 ML IV SCH (09:00)
[2024-02-14] MEDS: MORPHINE 2 MG/ML 1ML VIAL IV PRN (10:37)
[2024-02-14] MEDS ORDERED: ROCURONIUM BROMIDE 50MG/5ML VIAL As Ordered ONE (11:19)
[2024-02-14] MEDS ORDERED: fentaNYL 100 MCG/2 ML INJECTION As Ordered ONE (11:19)
[2024-02-14] MEDS ORDERED: ETOMIDATE INJ 20MG/10ML VIAL As Ordered ONE (11:19)
[2024-02-14] MEDS ORDERED: propofoL 200 MG/20 ML VIAL As Ordered ONE (11:19)
[2024-02-14] MEDS ORDERED: LIDOCAINE 2% 100MG/5ML SDV (FOR ANES.) As Ordered ONE (11:19)
[2024-02-14] MEDS: ceFAZolin 2 GM/D5W 50 ML IV BAG As Ordered ONE (12:25)
[2024-02-14] MEDS ORDERED: PHENYLephrine 500MCG 5ML (100MCG/ML) SYRINGE As Ordered ONE (12:28)
[2024-02-14] MEDS ORDERED: ePHEDrine SULFATE 25 MG/5 ML(5MG/ML) SYRINGE As Ordered ONE (12:28)
[2024-02-14] MEDS: TRANEXAMIC ACID 100 MG/ML 10ML VIAL As Ordered ONE (12:30)
[2024-02-14] MEDS ORDERED: ACETAMINOPHEN 1000MG 100ML IV BAG As Ordered ONE (12:42)
[2024-02-14] MEDS ORDERED: SUGAMMADEX SODIUM 500 MG/5 ML VIAL (BRIDION) As Ordered ONE (12:56)
[2024-02-14] MEDS ORDERED: VASOPRESSIN INJ 20UNITS/ML 1ML VIAL As Ordered ONE (14:09)
[2024-02-14] MEDS ORDERED: PHENYLEPHRINE 10MG/ML 1ML VIAL As Ordered ONE (14:12)
[2024-02-14] MEDS: VANCOMYCIN 1000MG/20ML VIAL As Ordered ONE (15:29)
[2024-02-14] MEDS ORDERED: LABETALOL 100MG/20ML VIAL As Ordered ONE (16:08)
[2024-02-14] MEDS ORDERED: GLUCOSE 4 GM CHEW PO PRN (16:40)
[2024-02-14] MEDS ORDERED: DEXTROSE 50% 50ML SYRINGE IV PRN (16:40)
[2024-02-14] MEDS ORDERED: GLUCAGON INJ 1MG VIAL SC PRN (16:40)
[2024-02-14 16:41] LABS: HEMATOCRIT 35.9 % (42.0-52.0); HEMOGLOBIN 11.9 g/dl (13.5-17.5); MEAN CORPUSCULAR HEMOGLOBIN 30.5 pg (27.0-33.0); MEAN CORPUSCULAR HGB CONC 33.1 g/dl (32.0-36.5); MEAN CORPUSCULAR VOLUME 92.1 fl (80.0-96.0); PLATELET COUNT, AUTOMATED 189 10^3/uL (150-450); WHITE BLOOD COUNT 10.8 10^3/uL (4.0-10.0)
[2024-02-14] MEDS: INSULIN LISPRO (NovoLOG) PER UNIT SC PRN (16:51)
[2024-02-14 18:08] VITALS: BP 112/59; TEMP 96.2; O2SAT 96
[2024-02-14 18:15] VITALS: BP 108/58; O2SAT 95
[2024-02-14 18:29] VITALS: BP 112/58; TEMP 96.2; O2SAT 97
[2024-02-14 20:00] VITALS: TEMP 96.6; O2SAT 98
[2024-02-14] MEDS ORDERED: PILL CUTTER 1 EACH XX PRN (20:25)
[2024-02-14] MEDS: ceFAZolin SOD 2 GM in IV 1 EA IV SCH (20:47)
[2024-02-14] MEDS: RAMELTEON 8 MG TAB (ROZEREM) PO SCH (20:48)
[2024-02-14] MEDS: ATORVASTATIN 10 MG TAB PO SCH (20:48)
[2024-02-14] MEDS: TAMSULOSIN 0.4 MG CAP PO SCH (20:48)
[2024-02-14] MEDS: MULTIVITAMINS/MINERALS THERAP 1 TAB PO SCH (20:48)
[2024-02-14] MEDS: LOSARTAN 50MG TABLET PO SCH (20:48)
[2024-02-15 04:00] VITALS: BP 118/61; TEMP 97; O2SAT 98
[2024-02-15 06:39] LABS: HEMATOCRIT 31.7 % (42.0-52.0); HEMOGLOBIN 10.3 g/dl (13.5-17.5); MEAN CORPUSCULAR HEMOGLOBIN 30.1 pg (27.0-33.0); MEAN CORPUSCULAR HGB CONC 32.5 g/dl (32.0-36.5); MEAN CORPUSCULAR VOLUME 92.7 fl (80.0-96.0); PLATELET COUNT, AUTOMATED 187 10^3/uL (150-450); RED BLOOD COUNT 3.42 10^6/uL (4.30-6.10); WHITE BLOOD COUNT 9.2 10^3/uL (4.0-10.0)
[2024-02-15 07:01] LABS: ALBUMIN 2.6 G/DL (3.2-5.2); BILIRUBIN,TOTAL 0.2 MG/DL (0.3-1.2); CREATININE FOR GFR 2.32 MG/DL (0.70-1.30); GLOMERULAR FILTRATION RATE 28.5 (>35); POTASSIUM SERUM 5.1 MMOL/L (3.5-5.1); TOTAL PROTEIN 5.8 G/DL (5.7-8.2)
[2024-02-15 07:35] VITALS: BP 117/56; TEMP 97.5; O2SAT 98
[2024-02-15 09:31] LABS: MAGNESIUM LEVEL 1.8 MG/DL (1.8-2.4)
[2024-02-15] MEDS: ALBUTEROL 90 MCG/ACT 8GM HFA INHALER INH PRN (12:51)
[2024-02-15 13:23] LABS: HEMATOCRIT 29.6 % (42.0-52.0); HEMOGLOBIN 9.6 g/dl (13.5-17.5); MEAN CORPUSCULAR HEMOGLOBIN 30.2 pg (27.0-33.0); MEAN CORPUSCULAR HGB CONC 32.4 g/dl (32.0-36.5); MEAN CORPUSCULAR VOLUME 93.1 fl (80.0-96.0); PLATELET COUNT, AUTOMATED 168 10^3/uL (150-450); RED BLOOD COUNT 3.18 10^6/uL (4.30-6.10); WHITE BLOOD COUNT 9.7 10^3/uL (4.0-10.0)
[2024-02-15 13:48] LABS: POTASSIUM SERUM 4.4 MMOL/L (3.5-5.1)
[2024-02-15 15:37] VITALS: BP 102/54; TEMP 98.8; O2SAT 95
[2024-02-15] MEDS: CYCLOBENZAPRINE 5MG TABLET PO PRN (16:20)
[2024-02-15] MEDS: PERCOCET 5MG/325MG TAB PO PRN ×2 (16:21→21:23)
[2024-02-15 20:06] VITALS: BP 120/64; TEMP 97.7; O2SAT 92
[2024-02-15] MEDS: CEFDINIR 300 MG CAP (OMNICEF) PO SCH (21:15)
[2024-02-15 21:16] VITALS: BP 120/64
[2024-02-15] MEDS: ENOXAPARIN 30MG/0.3ML SYRINGE (J1650 PER 10MG) SC SCH (21:16)
[2024-02-15] MEDS: NYSTATIN 100,000 UNITS/GM TOPICAL PWD 15GM TOP SCH (21:53)
[2024-02-15 23:50] VITALS: BP 143/62; TEMP 98.3; O2SAT 94
[2024-02-16] VITALS (13 sets, daily range): BP systolic 103–149; BP diastolic 56–79; TEMP 97.3–99.2; O2SAT 88–97
[2024-02-16 07:26] LABS: HEMATOCRIT 27.5 % (42.0-52.0); MEAN CORPUSCULAR HEMOGLOBIN 29.5 pg (27.0-33.0); MEAN CORPUSCULAR HGB CONC 32.7 g/dl (32.0-36.5); MEAN CORPUSCULAR VOLUME 90.2 fl (80.0-96.0); PLATELET COUNT, AUTOMATED 160 10^3/uL (150-450); RED BLOOD COUNT 3.05 10^6/uL (4.30-6.10); WHITE BLOOD COUNT 11.1 10^3/uL (4.0-10.0)
[2024-02-16 07:57] LABS: ALBUMIN 2.3 G/DL (3.2-5.2); ALKALINE PHOSPHATASE 63 U/L (46-116); ALT/SGPT < 9 U/L (7.0-40); AST/SGOT 49 U/L (<34); BILIRUBIN,TOTAL 0.3 MG/DL (0.3-1.2); BLOOD UREA NITROGEN 36 MG/DL (9-23); CALCIUM LEVEL 7.8 MG/DL (8.3-10.6); CARBON DIOXIDE LEVEL 19 MMOL/L (20-31); CHLORIDE LEVEL 111 MMOL/L (98-107); CREATININE FOR GFR 2.99 MG/DL (0.70-1.30); GLOMERULAR FILTRATION RATE 21.3 (>35); GLUCOSE, FASTING 121 MG/DL (74-106); POTASSIUM SERUM 4.3 MMOL/L (3.5-5.1); SODIUM LEVEL 137 MMOL/L (136-145); TOTAL PROTEIN 5.4 G/DL (5.7-8.2)
[2024-02-16] MEDS ORDERED: NS 1,000 ML IV SCH (08:30)
[2024-02-16] MEDS: DOCUSATE SODIUM 100MG CAPSULE PO SCH (09:36)
[2024-02-16] MEDS: MORPHINE 2 MG/ML 1ML VIAL IV PRN (12:01)
[2024-02-16] MEDS ORDERED: ALBUTEROL SULFATE 2.5MG/0.5ML INH NEB SOLN NEB SCH (14:00)
[2024-02-16] MEDS: SODIUM BICARBONATE 75 MEQ in NS 0.45% 1,000 ML IV SCH (16:17)
[2024-02-16] MEDS: predniSONE 10MG TAB PO SCH (16:20)
[2024-02-16 16:33] LABS: PROCALCITONIN 1.33 ng/ml
[2024-02-16 20:18] LABS: MEAN CORPUSCULAR HEMOGLOBIN 28.8 pg (27.0-33.0); MEAN CORPUSCULAR VOLUME 87.1 fl (80.0-96.0); PLATELET COUNT, AUTOMATED 133 10^3/uL (150-450); RED BLOOD COUNT 3.79 10^6/uL (4.30-6.10); WHITE BLOOD COUNT 14.8 10^3/uL (4.0-10.0)
[2024-02-16 20:22] LABS: HEMOGLOBIN 10.9 g/dl (13.5-17.5)
[2024-02-16] MEDS: IPRATROPIUM 0.5MG/ALBUTEROL 2.5MG INH SOL UD 3ML (DUONEB) NEB SCH (20:31)
[2024-02-16] MEDS: FUROSEMIDE 20MG/2ML VIAL IV STA (21:48)
[2024-02-16] MEDS: HEPARIN SOD (PORCINE) 5000UNITS/ML 1ML VIAL/SYRINGE SQ SCH (21:49)
[2024-02-16] MEDS: SENNA 8.6 MG TAB (SENOKOT) PO SCH (21:50)
[2024-02-16] MEDS: CEFDINIR 300 MG CAP (OMNICEF) PO SCH (21:52)
[2024-02-17 04:34] VITALS: BP 132/63; TEMP 97.1; O2SAT 94
[2024-02-17 06:19] LABS: HEMATOCRIT 33.8 % (42.0-52.0); HEMOGLOBIN 11.2 g/dl (13.5-17.5); MEAN CORPUSCULAR HEMOGLOBIN 28.6 pg (27.0-33.0); MEAN CORPUSCULAR HGB CONC 33.1 g/dl (32.0-36.5); MEAN CORPUSCULAR VOLUME 86.4 fl (80.0-96.0); PLATELET COUNT, AUTOMATED 159 10^3/uL (150-450); RED BLOOD COUNT 3.91 10^6/uL (4.30-6.10); WHITE BLOOD COUNT 14.3 10^3/uL (4.0-10.0)
[2024-02-17 06:56] LABS: ALBUMIN 2.1 G/DL (3.2-5.2); ALKALINE PHOSPHATASE 70 U/L (46-116); ALT/SGPT < 9 U/L (7.0-40); AST/SGOT 44 U/L (<34); BILIRUBIN,TOTAL 0.6 MG/DL (0.3-1.2); BLOOD UREA NITROGEN 42 MG/DL (9-23); CALCIUM LEVEL 8.4 MG/DL (8.3-10.6); CARBON DIOXIDE LEVEL 21 MMOL/L (20-31); CHLORIDE LEVEL 111 MMOL/L (98-107); CREATININE FOR GFR 2.82 MG/DL (0.70-1.30); GLOMERULAR FILTRATION RATE 22.7 (>35); GLUCOSE, FASTING 145 MG/DL (74-106); POTASSIUM SERUM 5.1 MMOL/L (3.5-5.1); SODIUM LEVEL 138 MMOL/L (136-145); TOTAL PROTEIN 5.6 G/DL (5.7-8.2)
[2024-02-17 07:40] VITALS: BP 113/56; TEMP 97.9; O2SAT 94
[2024-02-17] MEDS: SODIUM BICARBONATE 325 MG TAB PO SCH (10:37)
[2024-02-17 12:08] VITALS: BP 127/57; TEMP 98.5; O2SAT 95
[2024-02-17] MEDS: PATIROMER SORBITEX CALCIUM 8.4 GM POWDER PACKET (VELTASSA) PO SCH (12:26)
[2024-02-17 16:06] VITALS: BP 120/56; TEMP 98; O2SAT 94
[2024-02-17 20:04] VITALS: BP 124/60; TEMP 97.3; O2SAT 94
[2024-02-18 03:43] VITALS: BP 141/68; TEMP 97; O2SAT 96
[2024-02-18 06:29] LABS: HEMATOCRIT 31.8 % (42.0-52.0); HEMOGLOBIN 10.7 g/dl (13.5-17.5); MEAN CORPUSCULAR HEMOGLOBIN 28.8 pg (27.0-33.0); MEAN CORPUSCULAR HGB CONC 33.6 g/dl (32.0-36.5); MEAN CORPUSCULAR VOLUME 85.7 fl (80.0-96.0); PLATELET COUNT, AUTOMATED 185 10^3/uL (150-450); RED BLOOD COUNT 3.71 10^6/uL (4.30-6.10); WHITE BLOOD COUNT 13.1 10^3/uL (4.0-10.0)
[2024-02-18 06:56] LABS: ALKALINE PHOSPHATASE 66 U/L (46-116); ALT/SGPT < 9 U/L (7.0-40); AST/SGOT 27 U/L (<34); BILIRUBIN,TOTAL 0.4 MG/DL (0.3-1.2); BLOOD UREA NITROGEN 52 MG/DL (9-23); CALCIUM LEVEL 8.5 MG/DL (8.3-10.6); CARBON DIOXIDE LEVEL 22 MMOL/L (20-31); CHLORIDE LEVEL 111 MMOL/L (98-107); CREATININE FOR GFR 2.11 MG/DL (0.70-1.30); GLOMERULAR FILTRATION RATE 31.8 (>35); GLUCOSE, FASTING 124 MG/DL (74-106); POTASSIUM SERUM 4.8 MMOL/L (3.5-5.1); SODIUM LEVEL 139 MMOL/L (136-145); TOTAL IRON BINDING CAPACITY 211 UG/DL (250-425); TOTAL PROTEIN 5.7 G/DL (5.7-8.2)
[2024-02-18 06:57] LABS: IRON (FE) 22 UG/DL (65-175); PERCENT SATURATION 10.4 % (19.7-50.0)
[2024-02-18 06:59] LABS: FERRITIN 255.3 NG/ML (10.5-307.3)
[2024-02-18 07:50] VITALS: BP 145/65; TEMP 97.2; O2SAT 96
[2024-02-18] MEDS: MOM 30ML SUSPENSION UDC PO PRN (09:27)
[2024-02-18 11:59] VITALS: BP 150/70; TEMP 97.3; O2SAT 93
[2024-02-18 15:47] VITALS: BP 148/70; TEMP 98.4; O2SAT 91
[2024-02-18 20:20] VITALS: BP 135/70; TEMP 98.2; O2SAT 93
[2024-02-19 03:50] VITALS: BP 155/78; TEMP 98.1; O2SAT 94
[2024-02-19 06:40] LABS: HEMATOCRIT 31.5 % (42.0-52.0); HEMOGLOBIN 10.3 g/dl (13.5-17.5); MEAN CORPUSCULAR HEMOGLOBIN 28.2 pg (27.0-33.0); MEAN CORPUSCULAR HGB CONC 32.7 g/dl (32.0-36.5); MEAN CORPUSCULAR VOLUME 86.3 fl (80.0-96.0); PLATELET COUNT, AUTOMATED 204 10^3/uL (150-450); RED BLOOD COUNT 3.65 10^6/uL (4.30-6.10)
[2024-02-19 06:59] LABS: ALBUMIN 2.1 G/DL (3.2-5.2); BILIRUBIN,TOTAL 0.5 MG/DL (0.3-1.2); CALCIUM LEVEL 9.1 MG/DL (8.3-10.6); CREATININE FOR GFR 1.82 MG/DL (0.70-1.30); GLOMERULAR FILTRATION RATE 37.7 (>35); POTASSIUM SERUM 4.7 MMOL/L (3.5-5.1); TOTAL PROTEIN 6.1 G/DL (5.7-8.2)
[2024-02-19] MEDS: predniSONE 10MG TAB PO SCH (08:14)
[2024-02-19 12:00] VITALS: BP 141/63; TEMP 98.1; O2SAT 95
[2024-02-19] MEDS: FERRIC CARBOXYMALTOSE INJ 750 MG, VIAL MATE ADAPTER 1 EACH in NS 100 ML IV ONE (13:39)
[2024-02-19 20:50] VITALS: BP 144/85; TEMP 97.5; O2SAT 94
[2024-02-19] MEDS: rOPINIRole 2MG TAB PO SCH (21:37)
[2024-02-20 03:52] VITALS: BP 149/86; TEMP 97.9; O2SAT 95
[2024-02-20 07:02] LABS: HEMOGLOBIN 10.4 g/dl (13.5-17.5); MEAN CORPUSCULAR HEMOGLOBIN 28.3 pg (27.0-33.0); MEAN CORPUSCULAR HGB CONC 32.5 g/dl (32.0-36.5); MEAN CORPUSCULAR VOLUME 87.2 fl (80.0-96.0); PLATELET COUNT, AUTOMATED 223 10^3/uL (150-450); RED BLOOD COUNT 3.67 10^6/uL (4.30-6.10); WHITE BLOOD COUNT 10.2 10^3/uL (4.0-10.0)
[2024-02-20 07:09] LABS: ALBUMIN 2.2 G/DL (3.2-5.2); BILIRUBIN,TOTAL 0.5 MG/DL (0.3-1.2); CREATININE FOR GFR 1.78 MG/DL (0.70-1.30); GLOMERULAR FILTRATION RATE 38.7 (>35); POTASSIUM SERUM 4.6 MMOL/L (3.5-5.1); TOTAL PROTEIN 6.3 G/DL (5.7-8.2)
[2024-02-20] MEDS: predniSONE 10MG TAB PO SCH (08:58)
[2024-02-20] MEDS ORDERED: HEPA500023 SQ (11:04)
[2024-02-20] MEDS ORDERED: IPRA0.00 NEB (11:04)
[2024-02-20] MEDS ORDERED: SENO8.6T5 PO (11:04)
[2024-02-20] MEDS ORDERED: ACET32TAB PO (11:04)
[2024-02-20] MEDS ORDERED: COLA100C5 PO (11:04)
[2024-02-20] MEDS ORDERED: RAME8TAB2 PO (11:04)
[2024-02-20] MEDS ORDERED: CYCL5TAB PO (11:04)
[2024-02-20] MEDS ORDERED: MOM30SS2 PO (11:04)
[2024-02-20] MEDS ORDERED: ROPI2TAB46 PO (11:04)
[2024-02-20] MEDS ORDERED: NYST10006 TOP (11:04)
[2024-02-20] MEDS ORDERED: PERCOCET PO (11:04)
[2024-02-20] MEDS ORDERED: VENTAER INH (11:04)
[2024-02-20] MEDS ORDERED: CEFD300CAP PO (11:10)
[2024-02-20 12:00] VITALS: BP 142/84; TEMP 98.2; O2SAT 94
== END 2024-02-20 13:40 | DRG 521 ==
LOC: M ED 00:15 → EDBD 00:15 → M ED INP 05:50 → M PCU 17:40 → M MSPAV 02-18 15:43
PROVIDERS: ADMIT Student in an Organized Health Care Education/Training Program; ATTEND Internal Medicine
PROC: 0SSB04Z Reposition Left Hip Joint with Internal Fixation Device, Open Approach (ICD-10-PCS; 2024-02-14)
PROC: 0SRS0J9 Replacement of Left Hip Joint, Femoral Surface with Synthetic Substitute, Cemented, Open Approach (ICD-10-PCS; principal; 2024-02-14 11:00)
PROC: 30233N1 Transfusion of Nonautologous Red Blood Cells into Peripheral Vein, Percutaneous Approach (ICD-10-PCS; 2024-02-16)
DX: S72.142A Displaced intertrochanteric fracture of left femur, initial encounter for closed fracture (principal); J96.01 Acute respiratory failure with hypoxia; J18.9 Pneumonia, unspecified organism; D62 Acute posthemorrhagic anemia; N17.9 Acute kidney failure, unspecified; E87.20 Acidosis, unspecified; J44.1 Chronic obstructive pulmonary disease with (acute) exacerbation; J98.11 Atelectasis; I12.9 Hypertensive chronic kidney disease with stage 1 through stage 4 chronic kidney disease, or unspecified chronic kidney disease; N18.30 Chronic kidney disease, stage 3 unspecified; E78.5 Hyperlipidemia, unspecified; K21.9 Gastro-esophageal reflux disease without esophagitis; Z86.73 Personal history of transient ischemic attack (TIA), and cerebral infarction without residual deficits; I25.10 Atherosclerotic heart disease of native coronary artery without angina pectoris; Z95.2 Presence of prosthetic heart valve; E87.5 Hyperkalemia; N40.0 Benign prostatic hyperplasia without lower urinary tract symptoms; Z79.899 Other long term (current) drug therapy; Z79.82 Long term (current) use of aspirin; Z96.652 Presence of left artificial knee joint; Z87.891 Personal history of nicotine dependence; W18.30XA Fall on same level, unspecified, initial encounter; Y92.009 Unspecified place in unspecified non-institutional (private) residence as the place of occurrence of the external cause

== ENCOUNTER 2024-02-20 11:59 | Inpatient (IN) | payer MEDICARE ==
[~2024-02-20] VITALS: Ht 172.7 cm; Wt 92.0 kg
[~2024-02-20 11:59] MED LIST changes: +ACET32TAB PO; +CEFD300CAP PO; +COLA100C5 PO; +CYCL5TAB4 PO; +HEPA500023 SQ; +IPRA0.00 NEB; +MOM30SS2 PO; +MULT-40 PO; +NYST10006 TOP; +PERCOCET PO; +RA M10TA PO; +RAME8TAB2 PO; +ROPI2TAB46 PO; +SENO8.6T5 PO; +VENTAER INH
[2024-02-20] MEDS ORDERED: oxyCODONE 5MG TAB PO PRN (12:15)
[2024-02-20] MEDS ORDERED: ALBUTEROL 90 MCG/ACT 8GM HFA INHALER INH PRN (12:15)
[2024-02-20] MEDS ORDERED: predniSONE 5 MG TAB PO PRN (12:15)
[2024-02-20] MEDS ORDERED: MOM 30ML SUSPENSION UDC PO PRN (12:15)
[2024-02-20] MEDS ORDERED: BISACODYL 10MG SUPP PR PRN (12:25)
[2024-02-20] MEDS ORDERED: BISACODYL 5MG TAB PO PRN (12:25)
[2024-02-20 13:50] VITALS: BP 162/76; TEMP 97.3; O2SAT 92
[2024-02-20] MEDS: IPRATROPIUM 0.5MG/ALBUTEROL 2.5MG INH SOL UD 3ML (DUONEB) NEB SCH (16:28)
[2024-02-20] MEDS: ACETAMINOPHEN 500 MG TAB PO SCH (17:18)
[2024-02-20 20:00] VITALS: BP 140/75; TEMP 97.4; O2SAT 95
[2024-02-20] MEDS: rOPINIRole 1MG TAB PO SCH (20:35)
[2024-02-20] MEDS: CEFDINIR 300 MG CAP (OMNICEF) PO SCH (20:35)
[2024-02-20] MEDS: ATORVASTATIN 10 MG TAB PO SCH (20:35)
[2024-02-20] MEDS: RAMELTEON 8 MG TAB (ROZEREM) PO SCH (20:35)
[2024-02-20] MEDS: TAMSULOSIN 0.4 MG CAP PO SCH (20:35)
[2024-02-20] MEDS: HEPARIN SOD (PORCINE) 5000UNITS/ML 1ML VIAL/SYRINGE SQ SCH (20:36)
[2024-02-20] MEDS: NYSTATIN 100,000 UNITS/GM TOPICAL PWD 15GM TOP SCH (20:36)
[2024-02-20] MEDS: oxyCODONE 5MG TAB PO PRN (20:36)
[2024-02-20] MEDS: DOCUSATE SODIUM 100MG CAPSULE PO SCH (20:37)
[2024-02-20] MEDS: SENOKOT S TAB PO SCH (20:37)
[2024-02-21 04:00] VITALS: BP 166/75; TEMP 96.9; O2SAT 96
[2024-02-21 06:27] LABS: HEMATOCRIT 33.8 % (42.0-52.0); HEMOGLOBIN 11.2 g/dl (13.5-17.5); MEAN CORPUSCULAR HGB CONC 33.1 g/dl (32.0-36.5); MEAN CORPUSCULAR VOLUME 87.6 fl (80.0-96.0); PLATELET COUNT, AUTOMATED 252 10^3/uL (150-450); RED BLOOD COUNT 3.86 10^6/uL (4.30-6.10); WHITE BLOOD COUNT 12.6 10^3/uL (4.0-10.0)
[2024-02-21 06:52] LABS: CALCIUM LEVEL 8.9 MG/DL (8.3-10.6); CREATININE FOR GFR 1.78 MG/DL (0.70-1.30); GLOMERULAR FILTRATION RATE 38.7 (>35); POTASSIUM SERUM 4.8 MMOL/L (3.5-5.1)
[2024-02-21 08:28] LABS: BASOPHILS 6 % (0-1); EOSINOPHILS 4 % (0-3); LYMPHOCYTES 24 % (16-44); METAMYELOCYTES 1 % (0-0); MONOCYTES 10 % (0-5); NEUTROPHILS 51 % (28-66)
[2024-02-21 08:29] LABS: ANISOCYTOSIS 1+
[2024-02-21 08:30] LABS: PLATELET ESTIMATE NORMAL (NORMAL)
[2024-02-21] MEDS: predniSONE 10MG TAB PO SCH (08:41)
[2024-02-21] MEDS: ASPIRIN 81MG ENTERIC TABLET PO SCH (08:41)
[2024-02-21] MEDS: OMEPRAZOLE 20MG CAP PO SCH (08:41)
[2024-02-21] MEDS: MULTIVITAMINS/MINERALS THERAP 1 TAB PO SCH (08:41)
[2024-02-21] MEDS: MAGNESIUM GLUCONATE 500 MG TAB PO SCH (08:42)
[2024-02-21 09:21] LABS: PROCALCITONIN 0.46 ng/ml
[2024-02-21] MEDS ORDERED: **hydrALAZINE HCL** 25 MG TAB PO PRN (10:40)
[2024-02-21 12:00] VITALS: BP 135/98; TEMP 97.6; O2SAT 97
[2024-02-21] MEDS ORDERED: **hydrALAZINE HCL** 25 MG TAB PO SCH (12:00)
[2024-02-21] MEDS: LOSARTAN 50MG TABLET PO ONE (12:15)
[2024-02-21 20:00] VITALS: BP 129/61; TEMP 97.7; O2SAT 98
[2024-02-21] MEDS: CEFDINIR 300 MG CAP (OMNICEF) PO SCH (20:51)
[2024-02-22 04:00] VITALS: BP 142/67; TEMP 96.3; O2SAT 96
[2024-02-22 12:00] VITALS: BP 123/57; TEMP 97.6; O2SAT 97
[2024-02-22 20:00] VITALS: BP 147/69; TEMP 97.8; O2SAT 97
[2024-02-22] MEDS: RESTFUL LEGS SL SCH (20:30)
[2024-02-22] MEDS: LOSARTAN 50MG TABLET PO SCH (20:31)
[2024-02-23 04:00] VITALS: BP 123/67; TEMP 97.6; O2SAT 96
[2024-02-23 12:00] VITALS: BP 109/53; TEMP 97.1; O2SAT 100
[2024-02-23 13:44] VITALS: BP 135/63; O2SAT 99
[2024-02-23] MEDS: NITROGLYCERIN 0.4MG SUBL TABLET SL PRN (13:47)
[2024-02-23 13:55] VITALS: BP 116/62
[2024-02-23] MEDS: SIMETHICONE 80MG CHEW TAB PO PRN (13:58)
[2024-02-23 14:02] VITALS: BP 91/55
[2024-02-23] MEDS: ASPIRIN 81MG CHEW TABLET PO ONE (14:52)
[2024-02-23] MEDS ORDERED: NITROGLYCERIN 0.4MG SUBL TABLET SL PRN (15:35)
[2024-02-23 16:04] LABS: BASO # 0.1 10^3/uL (0.0-0.2); BASO % 0.5 % (0.0-1.0); EOS # 0.4 10^3/uL (0.0-0.5); EOS % 2.2 % (0.0-3.0); HEMATOCRIT 35.2 % (42.0-52.0); HEMOGLOBIN 11.1 g/dl (13.5-17.5); LYMPH # 2.8 10^3/uL (1.5-5.0); LYMPH % 16.6 % (24.0-44.0); MEAN CORPUSCULAR HEMOGLOBIN 28.8 pg (27.0-33.0); MEAN CORPUSCULAR HGB CONC 31.5 g/dl (32.0-36.5); MEAN CORPUSCULAR VOLUME 91.4 fl (80.0-96.0); MONO # 1.2 10^3/uL (0.0-0.8); MONO % 7.2 % (2.0-8.0); NEUTROPHILS # 11.2 10^3/uL (1.5-8.5); NEUTROPHILS % 65.6 % (36.0-66.0); PLATELET COUNT, AUTOMATED 302 10^3/uL (150-450); RED BLOOD COUNT 3.85 10^6/uL (4.30-6.10); WHITE BLOOD COUNT 17.1 10^3/uL (4.0-10.0)
[2024-02-23 16:28] LABS: CK-MB VALUE MASS 3.6 NG/ML (<3.6)
[2024-02-23 16:29] LABS: CALCIUM LEVEL 8.8 MG/DL (8.3-10.6); CREATININE FOR GFR 2.83 MG/DL (0.70-1.30); GLOMERULAR FILTRATION RATE 22.7 (>35); MB/CK RELATIVE INDEX 2.36 (< OR =4); POTASSIUM SERUM 4.7 MMOL/L (3.5-5.1)
[2024-02-23] MEDS: LevoFLOXacin 750 MG TABLET PO ONE (17:33)
[2024-02-23] MEDS ORDERED: NS 1,000 ML IV SCH (18:00)
[2024-02-23 20:08] LABS: CK-MB VALUE MASS 3.7 NG/ML (<3.6)
[2024-02-23 20:10] LABS: MB/CK RELATIVE INDEX 2.55 (< OR =4)
[2024-02-23] MEDS: NS 1,000 ML IV ONE (20:47)
[2024-02-23 20:55] VITALS: BP 128/55; TEMP 97.6; O2SAT 97
[2024-02-23] MEDS ORDERED: CARVedilol 6.25 MG TAB PO SCH (21:00)
[2024-02-23] MEDS: NS 1,000 ML IV SCH (21:46)
[2024-02-24] MEDS: ONDANSETRON 4MG TAB PO PRN (03:41)
[2024-02-24 04:00] VITALS: BP 148/65; TEMP 98.3; O2SAT 97
[2024-02-24 05:55] LABS: CK-MB VALUE MASS 2.7 NG/ML (<3.6)
[2024-02-24 05:56] LABS: MB/CK RELATIVE INDEX 2.19 (< OR =4)
[2024-02-24 07:22] LABS: CALCIUM LEVEL 8.4 MG/DL (8.3-10.6); CREATININE FOR GFR 2.27 MG/DL (0.70-1.30); GLOMERULAR FILTRATION RATE 29.2 (>35); POTASSIUM SERUM 4.6 MMOL/L (3.5-5.1)
[2024-02-24 08:10] LABS: PROCALCITONIN 0.4 ng/ml
[2024-02-24 08:15] LABS: BASO # 0.1 10^3/uL (0.0-0.2); BASO % 0.7 % (0.0-1.0); EOS # 0.3 10^3/uL (0.0-0.5); EOS % 3.1 % (0.0-3.0); HEMATOCRIT 34.3 % (42.0-52.0); HEMOGLOBIN 10.9 g/dl (13.5-17.5); LYMPH # 1.8 10^3/uL (1.5-5.0); LYMPH % 16.7 % (24.0-44.0); MEAN CORPUSCULAR HEMOGLOBIN 28.3 pg (27.0-33.0); MEAN CORPUSCULAR HGB CONC 31.8 g/dl (32.0-36.5); MEAN CORPUSCULAR VOLUME 89.1 fl (80.0-96.0); MONO # 0.8 10^3/uL (0.0-0.8); MONO % 6.9 % (2.0-8.0); NEUTROPHILS # 7.2 10^3/uL (1.5-8.5); NEUTROPHILS % 64.9 % (36.0-66.0); PLATELET COUNT, AUTOMATED 251 10^3/uL (150-450); RED BLOOD COUNT 3.85 10^6/uL (4.30-6.10); WHITE BLOOD COUNT 11.1 10^3/uL (4.0-10.0)
[2024-02-24] MEDS: SODIUM BICARBONATE 325 MG TAB PO SCH (09:31)
[2024-02-24 12:00] VITALS: BP 133/61; TEMP 97.6; O2SAT 97
[2024-02-24] MEDS: FINASTERIDE 5MG TAB PO SCH (17:50)
[2024-02-24 20:00] VITALS: BP 113/54; TEMP 97; O2SAT 97
[2024-02-24] MEDS: rOPINIRole 2MG TAB PO SCH (20:56)
[2024-02-25 04:00] VITALS: BP 108/54; TEMP 98; O2SAT 97
[2024-02-25] MEDS ORDERED: LevoFLOXacin 500 MG TABLET PO SCH (06:00)
[2024-02-25 12:00] VITALS: BP 145/79; TEMP 98.4; O2SAT 98
[2024-02-25 14:03] LABS: BASO # 0.1 10^3/uL (0.0-0.2); BASO % 0.5 % (0.0-1.0); EOS # 0.2 10^3/uL (0.0-0.5); EOS % 1.9 % (0.0-3.0); HEMATOCRIT 33.6 % (42.0-52.0); HEMOGLOBIN 10.4 g/dl (13.5-17.5); LYMPH # 1.5 10^3/uL (1.5-5.0); LYMPH % 13.1 % (24.0-44.0); MEAN CORPUSCULAR VOLUME 93.6 fl (80.0-96.0); MONO # 0.7 10^3/uL (0.0-0.8); MONO % 6.4 % (2.0-8.0); NEUTROPHILS # 8.5 10^3/uL (1.5-8.5); NEUTROPHILS % 73.6 % (36.0-66.0); PLATELET COUNT, AUTOMATED 218 10^3/uL (150-450); RED BLOOD COUNT 3.59 10^6/uL (4.30-6.10); WHITE BLOOD COUNT 11.6 10^3/uL (4.0-10.0)
[2024-02-25 18:35] LABS: CALCIUM LEVEL 8.3 MG/DL (8.3-10.6); CREATININE FOR GFR 1.86 MG/DL (0.70-1.30); GLOMERULAR FILTRATION RATE 36.8 (>35); POTASSIUM SERUM 4.4 MMOL/L (3.5-5.1)
[2024-02-25 20:00] VITALS: BP 143/63; TEMP 97; O2SAT 92
[2024-02-25] MEDS: SODIUM BICARBONATE 325 MG TAB PO SCH (20:57)
[2024-02-26 04:00] VITALS: BP 143/60; TEMP 96.4; O2SAT 99
[2024-02-26 07:36] LABS: CALCIUM LEVEL 8.4 MG/DL (8.3-10.6); CREATININE FOR GFR 1.68 MG/DL (0.70-1.30); GLOMERULAR FILTRATION RATE 41.4 (>35); MAGNESIUM LEVEL 1.9 MG/DL (1.8-2.4); POTASSIUM SERUM 4.8 MMOL/L (3.5-5.1)
[2024-02-26 08:28] LABS: BASO % 0.5 % (0.0-1.0); EOS # 0.2 10^3/uL (0.0-0.5); EOS % 3.2 % (0.0-3.0); HEMATOCRIT 29.7 % (42.0-52.0); HEMOGLOBIN 9.5 g/dl (13.5-17.5); LYMPH # 1.5 10^3/uL (1.5-5.0); LYMPH % 23.6 % (24.0-44.0); MEAN CORPUSCULAR HEMOGLOBIN 29.1 pg (27.0-33.0); MEAN CORPUSCULAR VOLUME 91.1 fl (80.0-96.0); MONO # 0.5 10^3/uL (0.0-0.8); NEUTROPHILS % 61.5 % (36.0-66.0); PLATELET COUNT, AUTOMATED 187 10^3/uL (150-450); RED BLOOD COUNT 3.26 10^6/uL (4.30-6.10); WHITE BLOOD COUNT 6.5 10^3/uL (4.0-10.0)
[2024-02-26 12:00] VITALS: BP 137/64; TEMP 98.3; O2SAT 97
[2024-02-26 20:15] VITALS: BP 148/65; TEMP 97; O2SAT 97
[2024-02-27 04:00] VITALS: BP 165/74; TEMP 98.6; O2SAT 97
[2024-02-27 06:10] VITALS: BP 134/68
[2024-02-27 06:24] LABS: BASO % 0.7 % (0.0-1.0); EOS # 0.3 10^3/uL (0.0-0.5); EOS % 4.1 % (0.0-3.0); HEMATOCRIT 29.8 % (42.0-52.0); HEMOGLOBIN 9.6 g/dl (13.5-17.5); LYMPH # 1.2 10^3/uL (1.5-5.0); LYMPH % 19.4 % (24.0-44.0); MEAN CORPUSCULAR HEMOGLOBIN 29.8 pg (27.0-33.0); MEAN CORPUSCULAR HGB CONC 32.2 g/dl (32.0-36.5); MEAN CORPUSCULAR VOLUME 92.5 fl (80.0-96.0); MONO # 0.5 10^3/uL (0.0-0.8); MONO % 8.8 % (2.0-8.0); NEUTROPHILS # 3.8 10^3/uL (1.5-8.5); NEUTROPHILS % 62.8 % (36.0-66.0); PLATELET COUNT, AUTOMATED 185 10^3/uL (150-450); RED BLOOD COUNT 3.22 10^6/uL (4.30-6.10); WHITE BLOOD COUNT 6.1 10^3/uL (4.0-10.0)
[2024-02-27 06:55] LABS: CALCIUM LEVEL 8.2 MG/DL (8.3-10.6); CREATININE FOR GFR 1.69 MG/DL (0.70-1.30); GLOMERULAR FILTRATION RATE 41.1 (>35); POTASSIUM SERUM 4.5 MMOL/L (3.5-5.1)
[2024-02-27] MEDS: SODIUM CHLORIDE NASAL 0.65% SPRAY BTL (OCEAN) SCH (09:00)
[2024-02-27] MEDS: SODIUM CHLORIDE 0.9% NASAL GEL 15GM (AYR) SCH (09:00)
[2024-02-27] MEDS ORDERED: SODIUM CHLORIDE NASAL 0.65% SPRAY BTL (OCEAN) PRN (10:55)
[2024-02-27 12:00] VITALS: BP 136/62; TEMP 97.6; O2SAT 98
[2024-02-27] MEDS: ASPIRIN 81MG ENTERIC TABLET PO SCH (20:40)
[2024-02-27 20:47] VITALS: BP 172/71; TEMP 97; O2SAT 96
[2024-02-27 20:57] VITALS: BP 162/78
[2024-02-28 00:51] VITALS: BP 156/62
[2024-02-28 04:42] VITALS: BP 167/72; TEMP 98; O2SAT 97
[2024-02-28 05:06] VITALS: BP 138/64
[2024-02-28 10:00] LABS: BASO # 0.1 10^3/uL (0.0-0.2); BASO % 0.9 % (0.0-1.0); EOS # 0.3 10^3/uL (0.0-0.5); EOS % 4.1 % (0.0-3.0); HEMATOCRIT 34.4 % (42.0-52.0); HEMOGLOBIN 10.9 g/dl (13.5-17.5); LYMPH # 1.2 10^3/uL (1.5-5.0); LYMPH % 16.1 % (24.0-44.0); MEAN CORPUSCULAR HEMOGLOBIN 29.5 pg (27.0-33.0); MEAN CORPUSCULAR HGB CONC 31.7 g/dl (32.0-36.5); MEAN CORPUSCULAR VOLUME 93.2 fl (80.0-96.0); MONO # 0.7 10^3/uL (0.0-0.8); MONO % 8.4 % (2.0-8.0); NEUTROPHILS # 5.2 10^3/uL (1.5-8.5); NEUTROPHILS % 67.5 % (36.0-66.0); PLATELET COUNT, AUTOMATED 223 10^3/uL (150-450); RED BLOOD COUNT 3.69 10^6/uL (4.30-6.10); WHITE BLOOD COUNT 7.7 10^3/uL (4.0-10.0)
[2024-02-28 10:33] LABS: CALCIUM LEVEL 9.1 MG/DL (8.3-10.6); CREATININE FOR GFR 1.74 MG/DL (0.70-1.30); GLOMERULAR FILTRATION RATE 39.7 (>35); POTASSIUM SERUM 4.8 MMOL/L (3.5-5.1)
[2024-02-28 12:00] VITALS: BP 138/58; TEMP 97.6; O2SAT 96
[2024-02-28 19:44] VITALS: TEMP 96.7; O2SAT 99
[2024-02-28 20:00] VITALS: BP 126/62
[2024-02-28] MEDS: LOSARTAN 25 MG TAB PO SCH (21:17)
[2024-02-29 04:00] VITALS: BP 147/69; TEMP 97.6; O2SAT 97
[2024-02-29 12:00] VITALS: BP 110/53; TEMP 98.2; O2SAT 99
[2024-02-29 20:00] VITALS: BP 134/63; TEMP 97.3; O2SAT 98
[2024-03-01 04:00] VITALS: BP 146/65; TEMP 97.8; O2SAT 98
[2024-03-01] MEDS: DOCUSATE SODIUM 100MG CAPSULE PO SCH (08:23)
[2024-03-01 12:00] VITALS: BP 108/56; TEMP 98; O2SAT 96
[2024-03-01 20:00] VITALS: BP 129/60; TEMP 95.6; O2SAT 96
[2024-03-01] MEDS: CYCLOBENZAPRINE 5MG TABLET PO PRN (21:17)
[2024-03-02 04:00] VITALS: BP 146/66; TEMP 96.3; O2SAT 98
[2024-03-02 12:39] VITALS: BP 113/77; TEMP 97.5; O2SAT 98
[2024-03-02] MEDS ORDERED: CYCL5TAB4 PO (14:49)
[2024-03-02] MEDS ORDERED: LOSA-527 PO (14:49)
[2024-03-02] MEDS ORDERED: ROPI2TAB46 PO (14:49)
[2024-03-02] MEDS ORDERED: ASPI81TA26 PO (14:49)
[2024-03-02] MEDS ORDERED: OXYC-517 PO (14:49)
[2024-03-02] MEDS ORDERED: FINA5TAB2 PO (14:49)
[2024-03-02 21:13] VITALS: BP 147/65; TEMP 97.6; O2SAT 96
[2024-03-03 04:00] VITALS: BP 136/60; TEMP 97.2; O2SAT 94
[2024-03-03 08:42] VITALS: BP 135/85
[2024-03-03 12:00] VITALS: BP 126/60; TEMP 97.7; O2SAT 95
[2024-03-03 20:46] VITALS: BP 128/72
[2024-03-03 20:55] VITALS: BP 163/70; TEMP 96.5; O2SAT 98
[2024-03-04 04:54] VITALS: BP 131/62; TEMP 96.2; O2SAT 96
== END 2024-03-04 10:45 | disposition home health service (06) | DRG 559 ==
LOC: M PM&R 13:45
PROVIDERS: ADMIT Physical Medicine & Rehabilitation; ATTEND Physical Medicine & Rehabilitation
DX: S72.142D Displaced intertrochanteric fracture of left femur, subsequent encounter for closed fracture with routine healing (principal); J18.9 Pneumonia, unspecified organism; N17.9 Acute kidney failure, unspecified; I50.32 Chronic diastolic (congestive) heart failure; I13.0 Hypertensive heart and chronic kidney disease with heart failure and stage 1 through stage 4 chronic kidney disease, or unspecified chronic kidney disease; C64.1 Malignant neoplasm of right kidney, except renal pelvis; C64.2 Malignant neoplasm of left kidney, except renal pelvis; I25.10 Atherosclerotic heart disease of native coronary artery without angina pectoris; J44.9 Chronic obstructive pulmonary disease, unspecified; K21.9 Gastro-esophageal reflux disease without esophagitis; N18.30 Chronic kidney disease, stage 3 unspecified; N40.0 Benign prostatic hyperplasia without lower urinary tract symptoms; R19.7 Diarrhea, unspecified; R10.9 Unspecified abdominal pain; Z96.652 Presence of left artificial knee joint; E78.5 Hyperlipidemia, unspecified; Z79.52 Long term (current) use of systemic steroids; G25.81 Restless legs syndrome; Z86.73 Personal history of transient ischemic attack (TIA), and cerebral infarction without residual deficits; Z79.899 Other long term (current) drug therapy; Z79.82 Long term (current) use of aspirin; Z96.642 Presence of left artificial hip joint; Z87.891 Personal history of nicotine dependence; R26.89 Other abnormalities of gait and mobility; R04.0 Epistaxis

== ENCOUNTER → 2024-03-07 | Outpatient (CLI) | payer MEDICARE ==
[~2024-03-07] MED LIST changes: +CYCL5TAB PO; -CYCL5TAB4 PO; +FINA5TAB2 PO; +LOSA-527 PO; +OXYC-517 PO
== END ==
LOC: M SOG 07:55
PROVIDERS: ATTEND Orthopaedic Surgery
DX: Z47.89 Encounter for other orthopedic aftercare (principal); Z96.642 Presence of left artificial hip joint

== ENCOUNTER → 2024-03-26 | Outpatient (REF) | payer MEDICARE ==
[~2024-03-26] MED LIST changes: -CYCL5TAB PO; +CYCL5TAB4 PO
[2024-03-26 19:46] LABS: PERCENT SATURATION 25.5 % (19.7-50.0)
== END ==
LOC: M LAB REF 16:46
PROVIDERS: ATTEND Internal Medicine
DX: D64.9 Anemia, unspecified (principal)

== ENCOUNTER → 2024-03-28 | Outpatient (CLI) | payer MEDICARE | LOC: M SOG 13:58 | PROVIDERS: ATTEND Orthopaedic Surgery | DX: Z96.642 Presence of left artificial hip joint (principal); S72.002D Fracture of unspecified part of neck of left femur, subsequent encounter for closed fracture with routine healing ==

== ENCOUNTER → 2024-05-03 | Outpatient (CLI) | payer MEDICARE | LOC: M WHC 09:25 | PROVIDERS: ATTEND Internal Medicine | DX: M80.052A Age-related osteoporosis with current pathological fracture, left femur, initial encounter for fracture (principal); M85.89 Other specified disorders of bone density and structure, multiple sites ==

== ENCOUNTER → 2024-05-09 | Outpatient (CLI) | payer MEDICARE | LOC: M SOG 07:50 | PROVIDERS: ATTEND Orthopaedic Surgery | DX: S72.002D Fracture of unspecified part of neck of left femur, subsequent encounter for closed fracture with routine healing (principal); Z96.642 Presence of left artificial hip joint; M25.561 Pain in right knee ==

== ENCOUNTER → 2024-05-28 | Outpatient (REF) | payer MEDICARE ==
[2024-05-28 13:03] LABS: APPEARANCE, URINE CLOUDY (CLEAR); BACTERIA, URINE AUTO 2+ (NEGATIVE); BILIRUBIN, URINE AUTO NEGATIVE (NEGATIVE); BLOOD, URINE BLOOD 1+ (NEGATIVE); COLOR, URINE YELLOW (YELLOW); GLUCOSE, URINE (UA) AUTO NEGATIVE (NEGATIVE); KETONE, URINE AUTO NEGATIVE (NEGATIVE); LEUKOCYTE ESTERASE, URINE AUTO 3+ (NEGATIVE); NITRITE, URINE AUTO NEGATIVE (NEGATIVE); PROTEIN, URINE AUTO NEGATIVE (NEGATIVE); RBC, URINE AUTO 7 /HPF (0-3); SPECIFIC GRAVITY URINE AUTO 1.009 (1.002-1.035); SQUAMOUS EPITHELIAL CELL UR AU 0 /HPF (0-6); UROBILINOGEN, URINE AUTO 0.2 mg/dL (0.0-2.0); WBC, URINE AUTO TNTC /HPF (0-3)
== END ==
LOC: M SMT 12:36
PROVIDERS: ATTEND Urology
DX: R33.9 Retention of urine, unspecified (principal)

== ENCOUNTER → 2024-09-06 | Outpatient (CLI) | payer MEDICARE ==
[~2024-09-06] MED LIST changes: -AMBI10TA PO; -FLOM0.4C39 PO; +TAMS-18 PO; +ZOLP-533 PO
== END ==
LOC: M SOG 06:59
PROVIDERS: ATTEND Orthopaedic Surgery
DX: S72.002D Fracture of unspecified part of neck of left femur, subsequent encounter for closed fracture with routine healing (principal); Z96.642 Presence of left artificial hip joint; X58.XXXD Exposure to other specified factors, subsequent encounter; Y92.9 Unspecified place or not applicable; Y93.9 Activity, unspecified; Y99.9 Unspecified external cause status

== ENCOUNTER → 2024-09-11 | Outpatient (REF) | payer MEDICARE | LOC: M SMT 15:08 | PROVIDERS: ATTEND Urology | DX: N49.2 Inflammatory disorders of scrotum (principal) ==

== ENCOUNTER → 2024-11-01 | Outpatient (CLI) | payer MEDICARE ==
[~2024-11-01] MED LIST changes: +ALEN1TAB PO
== END ==
LOC: M RAD 11:44
PROVIDERS: ATTEND Registered Nurse School
DX: N40.0 Benign prostatic hyperplasia without lower urinary tract symptoms (principal)

== ENCOUNTER → 2024-12-04 | Outpatient (CLI) | payer MEDICARE ==
[~2024-12-04] MED LIST changes: +SENN-225 PO; -SENO8.6T5 PO
[2024-12-04 14:26] LABS: BASO # 0.1 10^3/uL (0.0-0.2); BASO % 0.9 % (0.0-1.0); EOS # 0.4 10^3/uL (0.0-0.5); EOS % 4.3 % (0.0-3.0); LYMPH # 2.4 10^3/uL (1.5-5.0); LYMPH % 24.5 % (24.0-44.0); MONO # 0.8 10^3/uL (0.0-0.8); MONO % 7.7 % (2.0-8.0); NEUTROPHILS # 6.2 10^3/uL (1.5-8.5); NEUTROPHILS % 62.3 % (36.0-66.0); PLATELET COUNT, AUTOMATED 190 10^3/uL (150-450)
[2024-12-04 14:31] LABS: C REACTIVE PROTEIN QUANTITATIV < 0.50 MG/DL (<1.0)
[2024-12-04 14:32] LABS: ALT/SGPT 21 U/L (7.0-40); AST/SGOT 14 U/L (<34); CREATININE FOR GFR 1.80 MG/DL (0.70-1.30); GLOMERULAR FILTRATION RATE 35.8 (>35)
[2024-12-04 14:33] LABS: TOTAL 25(OH) VITAMIN D 29.6 NG/ML (20.0-100.0)
[2024-12-04 14:42] LABS: ERYTHROCYTE SEDIMENTATION RATE 15 mm/hr (0-20)
== END ==
LOC: M PLALAB 10:11
PROVIDERS: ATTEND Internal Medicine Rheumatology
DX: M05.79 Rheumatoid arthritis with rheumatoid factor of multiple sites without organ or systems involvement (principal); M81.0 Age-related osteoporosis without current pathological fracture; E55.9 Vitamin D deficiency, unspecified; Z79.899 Other long term (current) drug therapy

== ENCOUNTER → 2025-03-13 | Outpatient (CLI) | payer MEDICARE ==
[~2025-03-13] MED LIST changes: -FOLI0.8T3 PO; +FOLI800T5 PO
== END ==
LOC: M SOG 07:38
PROVIDERS: ATTEND Orthopaedic Surgery
DX: Z96.642 Presence of left artificial hip joint (principal); M17.11 Unilateral primary osteoarthritis, right knee; Z96.652 Presence of left artificial knee joint

== ENCOUNTER → 2025-03-13 | Outpatient (CLI) | payer MEDICARE ==
[2025-03-13 14:06] LABS: BASO # 0.1 10^3/uL (0.0-0.2); BASO % 0.9 % (0.0-1.0); EOS # 0.4 10^3/uL (0.0-0.5); EOS % 3.8 % (0.0-3.0); LYMPH # 3.0 10^3/uL (1.5-5.0); LYMPH % 26.2 % (24.0-44.0); MONO # 0.8 10^3/uL (0.0-0.8); MONO % 7.2 % (2.0-8.0); NEUTROPHILS # 7.1 10^3/uL (1.5-8.5); NEUTROPHILS % 61.6 % (36.0-66.0); PLATELET COUNT, AUTOMATED 239 10^3/uL (150-450)
== END ==
LOC: M PLALAB 10:34
PROVIDERS: ATTEND Orthopaedic Surgery
DX: Z96.642 Presence of left artificial hip joint (principal)

== ENCOUNTER → 2025-03-18 | Outpatient (CLI) | payer MEDICARE | LOC: M PLAIMG 07:12 | PROVIDERS: ATTEND Orthopaedic Surgery | DX: Z96.642 Presence of left artificial hip joint (principal) ==

== ENCOUNTER 2025-03-29 10:26 | Emergency (ER) | payer MEDICARE ==
[~2025-03-29] VITALS: Ht 170.2 cm; Wt 87.7 kg
[~2025-03-29 10:26] MED LIST changes: +MELA10TA22 PO; -RA M10TA PO
[2025-03-29 11:33] LABS: BASO # 0.1 10^3/uL (0.0-0.2); BASO % 0.4 % (0.0-1.0); EOS # 0.1 10^3/uL (0.0-0.5); EOS % 1.0 % (0.0-3.0); LYMPH # 2.0 10^3/uL (1.5-5.0); LYMPH % 16.9 % (24.0-44.0); MONO # 1.3 10^3/uL (0.0-0.8); MONO % 11.3 % (2.0-8.0); NEUTROPHILS # 8.2 10^3/uL (1.5-8.5); NEUTROPHILS % 69.8 % (36.0-66.0); PLATELET COUNT, AUTOMATED 211 10^3/uL (150-450)
[2025-03-29 12:09] LABS: ALT/SGPT 16.0 U/L (7.0-40); AST/SGOT 15.0 U/L (<34); CALCIUM LEVEL 8.5 MG/DL (8.3-10.6); CARBON DIOXIDE LEVEL 23.0 MMOL/L (20-31); CHLORIDE LEVEL 105.0 MMOL/L (98-107); CK-MB VALUE MASS 4.3 NG/ML (<3.6); CREATININE FOR GFR 1.85 MG/DL (0.70-1.30); GLOMERULAR FILTRATION RATE 34.6 (>35); POTASSIUM SERUM 4.7 MMOL/L (3.5-5.1); SODIUM LEVEL 138.0 MMOL/L (136-145)
[2025-03-29 12:13] LABS: CPK CREATINE PHOSPHOKINASE 44.0 U/L (46-171); MB/CK RELATIVE INDEX 9.77 (< OR =4)
[2025-03-29 13:33] LABS: KETONE, URINE AUTO RFX NEGATIVE (NEGATIVE); LEUKOCYTE ESTERASE UR AUTO RFX 3+ (NEGATIVE); NITRITE, URINE AUTO RFX NEGATIVE (NEGATIVE); RBC, URINE AUTO RFX 6 /HPF (0-3); SQUAM EPITHELIAL CELL UR AURFX 0 /HPF (0-6); WBC, URINE AUTO RFX TNTC /HPF (0-3)
[2025-03-29 14:00] VITALS: BP 169/79; TEMP 101.2; O2SAT 95
[2025-03-29] MEDS ORDERED: CEFD300C PO (14:00)
== END 2025-03-29 14:29 | disposition home or self-care (01) ==
LOC: M ED 10:26
DX: J18.9 Pneumonia, unspecified organism (principal); N39.0 Urinary tract infection, site not specified; R91.1 Solitary pulmonary nodule; I70.0 Atherosclerosis of aorta; I25.2 Old myocardial infarction; I10 Essential (primary) hypertension; E78.5 Hyperlipidemia, unspecified; N18.30 Chronic kidney disease, stage 3 unspecified; Z86.79 Personal history of other diseases of the circulatory system; Z79.1 Long term (current) use of non-steroidal anti-inflammatories (NSAID); Z79.52 Long term (current) use of systemic steroids; Z79.82 Long term (current) use of aspirin; Z79.899 Other long term (current) drug therapy; Z79.2 Long term (current) use of antibiotics